=== PATIENT | female | born 1985 | race Caucasian/White ===

== ENCOUNTER 2017-08-01 15:10 | Inpatient (IN) | payer OTHER ==
[~2017-08-01] VITALS: Ht 172.7 cm; Wt 61.2 kg
[~2017-08-01 15:10] MED LIST: ATIVAN0.5 MG PO; FERROUS SULFAT325 M1 PO; GABAPENTIN400 MG PO; LORAZEPAM1 MG PO; MOTRIN 800MG T800 MG PO; NALTREXONE HYDR50 MG PO; PEPCID20 MG PO; PERCOCET 325 MG1 TA2 PO; PRENATAL VITAMINS PO; ZOFRAN ODT4 MG SL
[2017-08-01 16:30] VITALS: BP 128/87
[2017-08-01 16:34] LABS: ABSOLUTE BASOPHIL COUNT 0 /CUMM (0.0-0.2); ABSOLUTE EOSINOPHIL COUNT 0 /CUMM (0.0-0.7); ABSOLUTE GRANULOCYTE CT 1.8 /CUMM (1.4-6.5); ABSOLUTE LYMPH COUNT 1.3 /CUMM (1.2-3.4); ABSOLUTE MONOCYTE COUNT 0.1 /CUMM (0.10-0.60); BASOPHIL % 0.8 % (0.0-2.0); EOSINOPHIL % 0 % (0-5); GRANULOCYTE % 55.6 % (42.2-75.2); HEMATOCRIT 40.2 % (37-47); MEAN CORPUSCULAR HGB CONC 34.4 G/DL (33.0-37.0); MEAN CORPUSCULAR VOLUME 87.1 FL (81.0-99.0); MEAN PLATELET VOLUME 5.8 FL (7.4-10.4); PLATELET COUNT 164 /CUMM (130-400); RBC DISTRIBUTION WIDTH 13.6 % (11.5-14.5); RED BLOOD CELL CT 4.62 /CUMM (4.20-5.40); WHITE BLOOD CELL COUNT 3.3 /CUMM (4.8-10.8)
--- NOTE | 2017-08-01 16:39 | ED PSYCHIATRIC COMPLAINT ---
History of Present Illness General Chief Complaint: General Adult Stated Complaint: "I JUST DON'T FEEL WELL" PT VERY VAGUE Source: patient, family, old records Exam Limitations: no limitations Vital Signs & Intake/Output Vital Signs & Intake/Output Vital Signs Date Time Temp Pulse Resp B/P B/P Pulse O2 O2 Flow FiO2 Mean Ox Delivery Rate 08/02 1513 97.0 110 18 128/79 100 Room Air Room Air 08/02 1512 97.0 110 18 128/74 08/02 1344 96.9 94 18 127/79 100 Room Air Room Air 08/02 1343 96.9 94 18 127/79 08/02 1239 98.8 100 20 127/81 08/02 1216 98.8 100 19 127/81 99 Room Air 08/02 1126 98.7 92 18 132/78 08/02 1115 98.7 92 18 132/78 08/02 0858 98.2 100 18 128/72 08/02 0855 98.2 100 18 128/72 100 Room Air 08/02 0740 98.4 104 18 124/68 98 Room Air 08/02 0736 98.4 104 18 124/68 08/02 0600 98.5 102 20 128/70 08/02 0600 98.5 102 20 128/70 98 Room Air 08/02 0246 96.0 84 16 116/84 08/02 0245 95.6 84 16 116/84 100 Room Air Room Air 08/02 0044 98.4 98 18 118/76 98 Room Air 08/01 2251 98.2 97 18 119/74 98 Room Air 08/01 2230 98.2 97 14 119/74 08/01 2030 98.4 96 14 116/65 08/01 2030 98.4 96 14 116/65 99 Room Air 08/01 1830 98.1 100 16 115/62 08/01 1830 98.1 100 16 115/62 99 08/01 1630 97.9 97 15 128/87 08/01 1626 Room Air ED Intake and Output 08/02 0000 08/01 1200 Intake Total 1000 Output Total Balance 1000 Intake, IV 1000 Patient 140 lb Weight Weight Reported by Patient Measurement Method Allergies Coded Allergies: No Known Allergies (08/01/17) Reconcile Medications No Known Home Medications Triage Note: PT TO ED WITH MOTHER FOR ETOH DETOX. PT HAD SEIZURE THIS MORNING FROM ALCOHOL. PER MOTHER, WITNESSED AND DID NOT LAST VERY LONG. PT WOULD LIKE TO BE EVALUATED FOR ETOH DETOX AND SEIZURES. DENIES HALLUCINATION. 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 PER MOTHER, PT REPORTS +SI COMMENTS. CURRENTLY DENIES SI/HI IN TRIAGE. PT NORMALLY DRINKS APPROX A PINT OF VODKA A DAY. Triage Nurses Notes Reviewed? yes Onset: Just prior to arrival Duration: hour(s):, constant, continues in ED Timing: recent history Severity: moderate, severe Associated Symptoms: anxiety, impaired concentration, insomnia, suicidal ideation LMP (ages 10-50): unknown : No Patient currently breastfeeds: No HPI: 18 hours prior to admission patient had her last alcoholic beverage. 6 hours prior to admission patient had a generalized seizure unwitnessed. She drank afterwards to prevent seizure recurrence. She requests detox for alcohol. She complains of anorexia nausea abdominal pain confusion insomnia mom reports suicidal thoughts and right hand pain. She denies fever chills vomiting diarrhea chest pain cough shortness of breath headache dysuria rash bleeding homicidal ideation hallucination. (Rolando Reyes MD) Past History Travel History Traveled to [place] past 21 day No Medical History Any Pertinent Medical History? 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 No (Rolando Reyes MD) Review of Systems Review of Systems Constitutional: Reports: see HPI, malaise. EENTM: Reports: no symptoms. Respiratory: Reports: no symptoms. Cardiovascular: Reports: no symptoms. GI: Reports: see HPI, abdominal pain, nausea. Genitourinary: Reports: no symptoms. Musculoskeletal: Reports: no symptoms. Skin: Reports: no symptoms. Neurological/Psychological: Reports: see HPI, anxiety, confusion, tonic-clonic seizures. Hematologic/Endocrine: Reports: no symptoms. Immunologic/Allergic: Reports: no symptoms. All Other Systems: Reviewed and Negative (Rolando Reyes MD) Physical Exam Physical Exam General Appearance: well developed/nourished, alert, awake, anxious, moderate distress, thin Head: atraumatic, normal appearance Eyes: Bilateral: normal appearance, PERRL, EOMI. Ears, Nose, Throat: normal pharynx, normal ENT inspection, hearing grossly normal Neck: normal inspection, supple, full range of motion, no midline tenderness Respiratory: normal breath sounds, chest non-tender, no respiratory distress, quiet respiration, lungs clear Cardiovascular: regular rate/rhythm, normal peripheral pulses, norml femoral pulses equa Gastrointestinal: normal bowel sounds, soft, non-tender, no organomegaly Extremities: evidence of injury, tenderness, no ligament instability Neurological/Psychiatric: no motor/sensory deficits, awake, agitated, alert, normal mood/affect, kiln hand II-XII nml as tested, oriented x 3 Appearance/Memory/Insight: disheveled, impaired insight Behavoir/Eye Contact/Speech: cooperative, normal speech Thoughts/Hallucinations: no apparent hallucination Skin: intact, normal color, warm/dry SAD PERSONS SAD PERSONS Response Value Depression/Hopelessness? yes 2 Previous Attempts/Psych Care yes 1 Excessive Ethanol/Drug Use? yes 1 Rational Thinking Loss? yes 2 Single//? yes 1 Social Support? has support 0 Total 7 SAD PERSONS Done? yes CAGE (2/more=possible [place] CAGE (2/more=possible [place] Response Value Cut Down? yes 1 Annoyed? yes 1 Guilty? yes 1 Eye Log Roper? yes 1 Total 4 (Rolando Reyes MD) Progress Differential Diagnosis: drug intoxication, drug overdose, drug withdrawal, electrolyte abnormality, hypoglycemia Plan of Care: Orders Procedure Date/time Status MAGNESIUM 08/03 0600 Active CBC WITHOUT DIFFERENTIAL 08/03 0600 Active BASIC ELECTROLYTES PLUS BUN&CR 08/03 0600 Active Regular Diet 08/02 D Active Regular Diet 08/02 B Complete CIWA 08/02 1552 Active HEPATIC FUNCTION PANEL 08/02 1517 Active CBC WITHOUT DIFFERENTIAL 08/02 1517 Active BASIC ELECTROLYTES PLUS BUN&CR 08/02 1517 Active Pathway - chart 08/02 1509 Active Patient Data 08/02 1506 Active Admit to inpatient 08/02 1440 Active Vital Signs 08/02 1440 Active Code Status 08/02 1440 Complete Code Status 08/02 1440 Active House Staff 08/02 UNK Active VTE Mechanical Prophylaxis 08/02 UNK Active Intake & Output 08/02 UNK Active Durable Medical Equipment 08/01 1842 Active Continuous Observation Monitor 08/01 1636 Active Add-on Test (ER Only) 08/01 1631 Active CIWA 08/01 1631 Active URINE 08/01 1631 Complete CASE MANAGEMENT CONSULT 08/01 1631 Active MAGNESIUM 08/01 1620 Complete LIPASE 08/01 1620 Complete Current Medications Sig/Nestor Start time Last Medication Dose Stop Time Status Admin Lorazepam 2 MG Q4 08/02 1800 UNVr (Ativan) Lorazepam 0 Q1P PRN 08/02 1600 UNVr (Ativan) Sodium Chloride 1,000 ML Q8H 08/02 1600 UNVr (Normal Saline 0.9%) 08/03 0759 Folic Acid 1 MG DAILY 08/02 1550 UNVr (Folic Acid) Multivitamins 1 TAB DAILY 08/02 1550 UNVr (Theragran Vitamins) Thiamine HCl 100 MG DAILY 08/02 1550 UNVr (Vitamin B1) Cyanocobalamin/ 1 BAG ONCE ONE 08/01 1630 CAN Thiamine/Pyridoxine 08/02 0029 (Vitamin in I.V.) Sodium Chloride 1,000 ML (Normal Saline 0.9%) Ondansetron HCl 4 MG ONCE ONE 08/01 1630 CAN (Zofran) 08/01 1631 Laboratory Tests 08/02/17 1545: Sodium Pending, Potassium Pending, Chloride Pending, Carbon Dioxide Pending, Anion Gap Pending, BUN Pending, Creatinine Pending, BUN/Creatinine Ratio Pending , Total Bilirubin Pending, Direct Bilirubin Pending, AST Pending, ALT Pending, Alkaline Phosphatase Pending, Total Protein Pending, Albumin Pending, CBC w Diff Pending, WBC Pending, RBC Pending, Hgb Pending, Hct Pending, MCV Pending, MCH Pending, RDW Pending, Plt Count Pending, MPV Pending, PUBS MCHC Pending 08/01/17 1720: Urine Opiates Screen < 100.00, Methadone Screen < 40, Barbiturate Screen < 60, Ur Phencyclidine Scrn < 6.00, Amphetamines Screen < 100, U Benzodiazepines Scrn 290 H, Urine Cocaine Screen < 50, Urine Cannabis Screen < 5.00, Urine Test NEGATIVE 08/01/17 1620: Anion Gap 22 H, Estimated GFR > 60, BUN/Creatinine Ratio 24.0, Glucose 95, Calcium 8.4, Magnesium 1.9, Total Bilirubin 0.5, AST 145 H, ALT 134 H, Alkaline Phosphatase 97, Total Protein 7.9, Albumin 4.8, Globulin 3.1, Albumin/ Globulin Ratio 1.5, Lipase 506 H, CBC w Diff NO MAN DIFF REQ, RBC 4.62, MCV 87.1, MCH 30.0, RDW 13.6, MPV 5.8 L, Gran % 55.6, Lymphocytes % 39.9, Monocytes % 3.7, Eosinophils % 0, Basophils % 0.8, Absolute Granulocytes 1.8, Absolute Lymphocytes 1.3, Absolute Monocytes 0.1, Absolute Eosinophils 0, Absolute Basophils 0, PUBS MCHC 34.4, Serum Alcohol 487.0 Diagnostic Imaging: Viewed by Me: Radiology Read. Discussed w/RAD: Radiology Read. Radiology Impression: no acute abnormality, no fracture Hand-Off Endorsed To: Luis Linton MD Endorsed Time: 1899 Pending: consult (case management) (Rolando Reyes MD) Departure Departure Disposition: STILL A PATIENT Condition: Stable Clinical Impression Primary Impression: Alcohol withdrawal seizure Secondary Impressions: Alcohol intoxication, Contusion of hand, right, Pancreatitis, acute Referrals: Minerva Pederson APRN (PCP/Family) Departure Forms: Customer Survey General Discharge Information Prescriptions: Current Visit Scripts No Known Home Medications (Rolando Reyes MD) Departure Comments 08/02/17 1 PM The patient was signed out to me by Dr. Linton. She is pending approval by case management for medical admission for alcohol detox. She has a prior history of alcohol withdrawal seizures and has an elevated CIWA score greater than 8. Admission Note Spoke With: Huan Welsh MD Documentation of Exam: Documentation of any treatments & extenuating circumstances including Concerns Regarding Discharge (functional status, medication knowledge or non-compliance, living conditions, etc.) that warrant an admission rather than observation: [The patient needs admission for IV Ativan, neuro checks every 6 hours, concern for alcohol withdrawal seizures] (Luis Valverde DO) Procedures Splinting Location: R hand/wrist Manual Alignment Performed: No Pre-Made Type: velcro Splint: volar Splint Applied By: splint applied by other Pre-Proc Neuro Vasc Exam: normal Post-Proc Neuro Vasc Exam: normal (Rolando Reyes MD) Critical Care Note Critical Care Note Critical Care Time: 30-74 min (35) (Rolando Reyes MD)
--- NOTE | 2017-08-01 18:14 | RADIOLOGY REPORT ---
EXAMINATION: XR HAND, RIGHT CLINICAL INFORMATION: Right hand pain and swelling. Seizure. COMPARISON: None TECHNIQUE: PA, lateral, and oblique views of the right hand. FINDINGS: Soft tissue swelling is evident at the level of the metacarpals. No acute fractures are identified. Bone mineralization is normal. Joint spaces are well-preserved. IMPRESSION: No acute fracture or malalignment in the right hand. Soft tissue swelling over the metacarpal heads.
[2017-08-01 18:30] VITALS: BP 115/62
[2017-08-01 20:30] VITALS: BP 116/65
[2017-08-01 22:30] VITALS: BP 119/74
[2017-08-02] VITALS (12 sets, daily range): BP systolic 116–132; BP diastolic 62–92
--- NOTE | 2017-08-02 15:46 | History & Physical ---
Avtar HOU,Jovan 08/02/17 1546: General Information and HPI MD Statement: I have seen and personally examined BERNADINE VILLANUEVA and documented this H&P. The patient is a 32 year old F who presented with a patient stated chief complaint of [alcohol withdrawal with seizure]. Source of Information: patient, old records Exam Limitations: no limitations History of Present Illness: Patient is a 32-year-old female with a past medical history significant for alcohol withdrawal seizures first occurring in 2010, who presented to the ED complaining of frequent occurrence of alcohol withdrawal seizure and requesting alcohol detoxification. Patient reports drinking 1 pint of vodka for the past 7 days and states her recurrence and drinking is due to a toxic relationship, patient reports that she feels safe in her home. Her last drink was 2 hours before presenting to the ED. She reports that her previous seizures lasted less than a minute as to this one which was witnessed by her mother, she denies any bowel or bladder incontinence. She has never required ICU admission or Ativan drip. She denies any associated chest pain, shortness of breath, lightheadedness, dizziness or head strike. 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 Home Who Do You Live With? spouse Primary Language: Belgian Smoking Status: Current Some Day Smoker ETOH Use: alcoholic Illicit Drug Use: denies illicit drug use Living Will? unknown Power of Hydroelectric Machinery Mechanic/HCP? unknown Review of Systems Review of Systems Constitutional: Denies: chills, fever, weakness. EENTM: Denies: blurred vision, double vision, visual changes. Cardiovascular: Reports: syncope. Denies: chest pain, palpitations. Respiratory: Denies: cough, orthopnea, short of breath. GI: Reports: constipation (chronic), nausea. Denies: melena, bloody stool. Genitourinary: Denies: dysuria, frequency, hematuria. Neurological/Psychological: Reports: anxiety. Exam & Diagnostic Data Last 24 Hrs of Vital Signs/I&O Vital Signs Date Time Temp Pulse Resp B/P B/P Pulse O2 O2 Flow FiO2 Mean Ox Delivery Rate 08/02 1814 98.0 77 18 128/82 100 08/02 1712 97.9 92 18 118/62 08/02 1649 97.9 92 18 118/62 100 Room Air 08/02 1513 97.0 110 18 128/79 100 Room Air Room Air 08/02 1512 97.0 110 18 128/74 08/02 1344 96.9 94 18 127/79 100 Room Air Room Air 08/02 1343 96.9 94 18 127/79 08/02 1239 98.8 100 20 127/81 08/02 1216 98.8 100 19 127/81 99 Room Air 08/02 1126 98.7 92 18 132/78 08/02 1115 98.7 92 18 132/78 08/02 0858 98.2 100 18 128/72 08/02 0855 98.2 100 18 128/72 100 Room Air 08/02 0740 98.4 104 18 124/68 98 Room Air 08/02 0736 98.4 104 18 124/68 08/02 0600 98.5 102 20 128/70 08/02 0600 98.5 102 20 128/70 98 Room Air 08/02 0246 96.0 84 16 116/84 08/02 0245 95.6 84 16 116/84 100 Room Air Room Air 08/02 0044 98.4 98 18 118/76 98 Room Air 08/01 2251 98.2 97 18 119/74 98 Room Air 08/01 2230 98.2 97 14 119/74 Intake & Output 08/02 1600 08/02 0800 08/02 0000 Intake Total 1000 Output Total Balance 1000 Intake, IV 1000 Physical Exam General Appearance Alert, Oriented X3, Cooperative, No Acute Distress, tremulous Skin No Rashes Skin Temp/Moisture Exam: Warm/Dry Sepsis Skin Exam (color): Normal for Ethnicity HEENT Atraumatic, PERRLA, EOMI, Mucous Membr. moist/pink Neck Supple, No JVD Cardiovascular Regular Rate, Normal S1, Normal S2, No Murmurs Lungs Clear to Auscultation, Normal Air Movement Abdomen Normal Bowel Sounds, Soft, No Tenderness Neurological Normal Speech, Sensation Intact, Cranial Nerves 3-12 NL Extremities No Clubbing, No Cyanosis, No Edema Last 24 Hrs of Labs/Marty: Laboratory Tests 08/02/17 1842: Urine Osmolality 943, Ur Random Creatinine 126.2, Ur Random Sodium 103 H, Ur Random Potassium 34.5, Fraction Sodium Excret 0.4 08/02/17 1545: Anion Gap 18 H, Estimated GFR > 60, BUN/Creatinine Ratio 16.7, Serum Osmolality 287, Magnesium 1.8, Total Bilirubin 1.0, Direct Bilirubin 0.4, AST 110 H, ALT 107 H, Alkaline Phosphatase 72, Total Protein 7.3, Albumin 4.6, CBC w Diff NO MAN DIFF REQ, RBC 4.13 L, MCV 88.9, MCH 29.8, RDW 13.7, MPV 7.4, Gran % 61.6, Lymphocytes % 29.0, Monocytes % 8.2, Eosinophils % 0, Basophils % 1.2, Absolute Granulocytes 3.1, Absolute Lymphocytes 1.4, Absolute Monocytes 0.4, Absolute Eosinophils 0, Absolute Basophils 0.1, PUBS MCHC 33.5 Diagnostic Data Other Results R hand XR No acute fracture or malalignment in the right hand. Soft tissue swelling over the metacarpal heads. Assessment/Plan Assessment: Patient is a 32-year-old female with a past medical history significant for alcohol withdrawal seizures first occurring in 2010, who presented to the ED complaining of frequent occurrence of alcohol withdrawal seizure and requesting alcohol detoxification. VS on admission: T 98.2, P 97, RR 14, BP 119/74, pulse ox 97% on room air labs on admission: Urine benzo screen +290, serum alcohol 487, WCC 3.3>5.0, H/H 13.9/40.2, platelets 164, sodium 146>134, potassium 4.2, chloride 104, CO2 21, BUN/Cr 12, creatinine 0.5, glucose 95, AST 145>110, ALT 134>107, lipase 506 Patient was admitted to the general medicine floor for treatment of the following problems #Alcohol withdrawal seizure Patient has history of alcohol withdrawal seizures, CIWA score since admission range from 014 -Ativan scheduled 2 mg every 4 hours by mouth -CIWA protocol - IV rehydration with lactated Ringer's -Oral supplementation with multivitamin B1 folic acid #Transaminitis -Patient will be nothing by mouth for right upper quadrant ultrasound in a.m. #DVT prophylaxis -ALPS, platelet count currently <100 #CODE STATUS Full code As Ranked By This Provider Problem List: 1. Alcohol withdrawal seizure Core Measures/Misc (04/22) Acute Coronary Syndrome ACS Diagnosis: No Congestive Heart Failure Congestive Heart Failure Diagnosis No Cerebrovascular Accident CVA/TIA Diagnosis: No VTE (View Protocol) VTE Risk Factors No risk factors No Mechanical VTE Prophylaxis d/t N/A MechProphylax Ordered No VTE Pharm Prophylaxis d/t Platelets below ref range Sepsis (View protocol) Sepsis Present: No Ul Christopher HOU,Miguel A 08/02/17 1605: Resident Review Statement Resident Statement: examined this patient, discussed with technology risk intern, discussed with family, reviewed EMR data (avail) Other Findings: 32-year-old female with past medical history significant for alcohol intoxication, history of stillborn in 2014, breast augmentation, tonsillectomy, and history of right arm fracture came to emergency department for alcohol detox and ? generalized witnessed seizure. Last drink was 2 hours before admission. Patient drinks a pint of water every day. Vitals in emergency department patient afebrile, tachycardia noticed 94-118, no tachypnea, systolic blood pressure 120s and diastolic in 70s, oxygen saturation of 100% on room air. On examination, patient was alert and oriented time person and place not in acute distress. Comfortably lying in the bed. S1 and S2 audible without any murmurs. Overall clear lungs, nontender abdominal examination, audible bowel sounds, no significant gross neurological deficits, bilateral shaking of the hands noticed. Labs significant for WBC 3.3, hemoglobin 13.9 and hematocrit 40.2, platelet count of 164, sodium 146, potassium 4.2, chloride 104, carbon dioxide 21, anion gap 22, normal renal function, transaminitis AST 145 and ALT 134, urine tox positive for benzodiazepines and serum alcohol 487, urine lites and osmolality along with serum osmolarity added. Negative urine Patient is currently being admitted for the management of following problems Alcohol withdrawal Alcohol withdrawal seizures Dehydration Hyponatremia Patient has history of a core dependence that intake increased after recent toxic relationship. Drinks 1 pint of vodka daily for the last 1 week. Last drink in the moring of admission. Symptoms of anxiety and tremors. Serum Alcohol level 487. History of detox and withdrwal seizures - Admit to Gen Med - Vitals Q Shift - Give PRN IV Ativan. - CIWA Protocol - NS at 100cc per hour, will readjust fluids and urine studies - Replete Lytes - Give Multivitamins, B12 and Folate - Social work consult Alcohol withdrawal seizures Seizure precautions Aspiration precautions IV Ativan when necessary ordered for breakthrough seizures CPK Neurology consult in case seizures persist History of tachycardia According to the patient she was given propranolol recently because of tachycardia. She never had it filled up. With obtain an EKG to rule out any underlying arrhythmias. Patient is full code Patient is on regular diet Patient is on Alps for DVT prophylaxis because of thrombocytopenia Patient is on pain management Anitha HOU,Huan 08/02/17 1626: Attending MD Review Statement Attending Statement Attending MD Statement: examined this patient, discuss w/resident/PA/DEPARTMENT MGR, agreed w/resident/PA/DEPARTMENT MGR, reviewed EMR data (avail), discussed with nursing, amended to note Attending Assessment/Plan: Patient is a 72-year-old female with history of alcohol abuse and alcohol- related seizures. She reportedly had a seizure at home yesterday and continued drinking and attempts to suppress a seizure. She was eventually brought to the emergency room by her mother for evaluation. She will monitoring the emergency room all through yesterday where she continued to have elevated CIWA scores requiring benzodiazepine therapy. This morning decision was made to admit the patient to the inpatient medical service for further management. She is currently alert and oriented 3, resting comfortably not in any acute distress. She is not tremulous or agitated on exam. Lab shows chronic transaminitis likely alcohol-related. She had negative viral hepatitis panel in the past. She has had no recent right upper quadrant sonogram. Recommendations: -Admit to the inpatient general medical service. -Hydrate with lactated Ringer's at 125cc per hour. -Repeat serum chemistry magnesium level in a.m. No need to repeat CBC in a.m. unless is a change in her clinical status. -Place on CIWA protocol. -Obtain right upper quadrant sonogram. -DVT prophylaxis. -child protective services social worker consultation for assistance with outpatient alcohol rehabilitation.
[2017-08-02 15:56] LABS: ABSOLUTE BASOPHIL COUNT 0.1 /CUMM (0.0-0.2); ABSOLUTE EOSINOPHIL COUNT 0 /CUMM (0.0-0.7); ABSOLUTE GRANULOCYTE CT 3.1 /CUMM (1.4-6.5); ABSOLUTE LYMPH COUNT 1.4 /CUMM (1.2-3.4); ABSOLUTE MONOCYTE COUNT 0.4 /CUMM (0.10-0.60); BASOPHIL % 1.2 % (0.0-2.0); EOSINOPHIL % 0 % (0-5); GRANULOCYTE % 61.6 % (42.2-75.2); HEMATOCRIT 36.7 % (37-47); MEAN CORPUSCULAR HGB 29.8 PG (27.0-31.0); MEAN CORPUSCULAR HGB CONC 33.5 G/DL (33.0-37.0); MEAN CORPUSCULAR VOLUME 88.9 FL (81.0-99.0); MEAN PLATELET VOLUME 7.4 FL (7.4-10.4); PLATELET COUNT 92 /CUMM (130-400); RBC DISTRIBUTION WIDTH 13.7 % (11.5-14.5); RED BLOOD CELL CT 4.13 /CUMM (4.20-5.40)
--- NOTE | 2017-08-02 16:27 | Admission Certification ---
Admission Certification Certification Statement - As attending physician, I certify that at the time of - admission, based on clinical presentation, severity of - symptoms, need for further diagnostic testing and - therapeutic interventions, and risk of adverse outcomes - without in-hospital treatment, in my clinical assessment, - this patient requires an acute hospital stay for a minimum - of two nights or longer. I have also considered psychsocial - factors such as support system, advanced age, financial - issues, cognitive issues, and failed out-patient treatments, - past re-admission history, safety of patient, and lack of - compliance as applicable. Specific rationale supporting this admission is: Inpatient admission is required for management of alcohol withdrawal syndrome. She will require IV hydration and benzodiazepine therapy.
[2017-08-03] VITALS (11 sets, daily range): BP systolic 118–124; BP diastolic 76–88
--- NOTE | 2017-08-03 07:14 | PN- Housestaff ---
Avtar HOU,Jovan 08/03/17 0713: Subjective Follow-up For: Alcohol withdrawal Transaminitis Subjective: Was seen and examined at bedside. She was resting comfortably. She had no acute events overnight. She states that she remains nauseous, with no appetite and has a headache. She continues to complain of anxiety but states this is improving. She also remains constipated. She offers no other complaints currently denies any vomiting, chest pain, shortness breath, fever, chills. Review of Systems Constitutional: Denies: chills, fever. Cardiovascular: Denies: chest pain, palpitations. Respiratory: Denies: cough, short of breath. Gastrointestinal: Reports: constipation, nausea. Denies: melena, bloody stool, vomiting. Genitourinary: Reports: no symptoms. Musculoskeletal: Reports: no symptoms. Objective Last 24 Hrs of Vital Signs/I&O Vital Signs Date Time Temp Pulse Resp B/P B/P Pulse O2 O2 Flow FiO2 Mean Ox Delivery Rate 08/03 629 97.8 59 20 118/76 98 08/03 0600 97.8 59 20 118/76 08/02 2259 99.2 85 18 128/92 98 Room Air 08/02 2200 99.2 85 18 128/92 08/02 1814 98.0 77 18 128/82 100 08/02 1712 97.9 92 18 118/62 08/02 1649 97.9 92 18 118/62 100 Room Air 08/02 1513 97.0 110 18 128/79 100 Room Air Room Air 08/02 1512 97.0 110 18 128/74 08/02 1344 96.9 94 18 127/79 100 Room Air Room Air 08/02 1343 96.9 94 18 127/79 08/02 1239 98.8 100 20 127/81 08/02 1216 98.8 100 19 127/81 99 Room Air 08/02 1126 98.7 92 18 132/78 08/02 1115 98.7 92 18 132/78 08/02 0858 98.2 100 18 128/72 08/02 0855 98.2 100 18 128/72 100 Room Air 08/02 0740 98.4 104 18 124/68 98 Room Air 08/02 0736 98.4 104 18 124/68 Intake & Output 08/03 0800 08/03 0000 08/02 1600 Intake Total 1000 630 Output Total Balance 1000 630 Intake, IV 1000 250 Intake, Oral 0 380 Patient 135 lb Weight Weight Reported by Patient Measurement Method Physical Exam General Appearance: Alert, Oriented X3, Cooperative, No Acute Distress, tremulous Skin Temp/Moisture Exam: Warm/Dry Cardiovascular: Regular Rate, Normal S1, Normal S2, No Murmurs Lungs: Clear to Auscultation, Normal Air Movement Abdomen: Normal Bowel Sounds, Soft, mild TTP of the right upper quadrant Neurological: Normal Speech, Sensation Intact Extremities: No Clubbing, No Cyanosis, No Edema Current Medications: Current Medications Sig/Nestor Start time Last Medication Dose Route Stop Time Status Admin Docusate Sodium 100 MG BID 08/03 1000 AC PO Folic Acid 1 MG DAILY 08/02 1550 AC 08/02 PO 2133 Lactated Ringer's 1,000 ML Q8H 08/02 1730 AC 08/02 IV 08/03 0929 2030 Lorazepam 0 .STK-MED ONE 08/02 1803 DC .ROUTE Lorazepam 2 MG Q4 08/02 1800 AC 08/03 PO 0522 Lorazepam 0 .STK-MED ONE 08/02 1720 DC PO Lorazepam 0 Q1P PRN 08/02 1600 AC 08/02 IV 1722 Lorazepam 0 .STK-MED ONE 08/02 1544 DC PO Lorazepam 0 .STK-MED ONE 08/02 1340 DC .ROUTE Lorazepam 2 MG ONE ONE 08/02 1315 DC 08/02 IV 08/02 1316 1345 Lorazepam 0 .STK-MED ONE 08/02 1238 DC PO Lorazepam 0 .STK-MED ONE 08/02 1140 DC PO Lorazepam 0 .STK-MED ONE 08/02 1114 DC PO Lorazepam 0.5 MG ONE ONE 08/02 1100 DC 08/02 PO 08/02 1101 1113 Lorazepam 2 MG Q2P PRN 08/01 1845 DC 08/02 PO 1545 Lorazepam 1 MG Q2P PRN 08/01 1845 DC 08/02 PO 1138 Multivitamins 1 TAB DAILY 08/02 1550 AC 08/02 PO 2133 Ondansetron HCl 4 MG Q6P PRN 08/02 2045 AC 08/03 IV 0526 Ondansetron HCl 4 MG ONCE ONE 08/02 2015 CAN IV 08/02 2016 Ondansetron HCl 0 .STK-MED ONE 08/02 1114 DC PO Ondansetron HCl 4 MG ONCE ONE 08/02 1100 DC 08/02 PO 08/02 1101 1113 Promethazine HCl 12.5 MG ONCE ONE 08/03 0230 DC 08/03 IV 08/03 0231 0234 Promethazine HCl 12.5 MG ONCE ONE 08/02 2015 DC 08/02 IV 08/02 Promethazine HCl 12.5 MG ONCE ONE 08/02 1315 DC 08/02 IV 08/02 1316 1332 Promethazine HCl 0 .STK-MED ONE 08/02 1256 DC .ROUTE Sodium Chloride 1,000 ML Q8H 08/02 1600 DC IV 08/03 0759 Sodium Chloride 1,000 ML BOLUS ONE 08/02 1315 DC 08/02 IV 08/02 1414 1332 Thiamine HCl 100 MG DAILY 08/02 1550 AC 08/02 PO 2133 Last 24 Hrs of Lab/Marty Results Last 24 Hrs of Labs/Mics: Laboratory Tests 08/03/17 0802: Anion Gap 8, Estimated GFR > 60, BUN/Creatinine Ratio 22.0, Magnesium 1.8, TSH 1.180, Free T4 1.06 08/02/17 1842: Urine Osmolality 943, Ur Random Creatinine 126.2, Ur Random Sodium 103 H, Ur Random Potassium 34.5, Fraction Sodium Excret 0.4 Orders Radiology Findings: RUQ US 1. Liver is diffusely hyperechoic -- suggestive of steatosis. 2. Gallbladder is normal. Assessment/Plan Assessment: Patient is a 32-year-old female with a past medical history significant for alcohol withdrawal seizures first occurring in 2010, who presented to the ED complaining of frequent occurrence of alcohol withdrawal seizure and requesting alcohol detoxification. #Alcohol withdrawal Given patient's history of alcohol withdrawal seizures is being treated with scheduled Ativan with CIWA protocol breakthrough. Overnight patient's CIWA scores range from 0-6, and required only 1 mg IV Ativan for breakthrough. -Continue with CIWA protocol, will taper scheduled Ativan tomorrow if patient continues to do well -Initially ordered Zofran for nausea, patient stated provided little relief, switched to Phenergan which had provided relief in past. -Continue IV rehydration with lactated Ringer's until patient's by mouth intake improved #Alcoholic steatosis Patient has mild transaminitis and right upper quadrant ultrasound shows hypoechoic liver likely representing steatosis secondary to alcohol abuse. Thyroid function tests were done due to patient reported history of type thyroidism, these were within normal limits #DVT prophylaxis -Alps, platelet count <100 CODE STATUS Full code Problem List: 1. Alcohol withdrawal Pain Ratin Pain Location: none Pain Goal: Remain pain free Pain Plan: pain pathway Tomorrow's Labs & Rationales: cbc, bep Huan Welsh MD 08/03/17 1316: Attending MD Review Statement Attending Statement Attending MD Statement: examined this patient, discuss w/resident/PA/PICKLING TANK OPERATOR, agreed w/resident/PA/PICKLING TANK OPERATOR, reviewed EMR data (avail), discussed with nursing, discussed with case mgmt, amended to note Attending Assessment/Plan: Patient seen and examined. Very well overnight. CIWA score appears to be improving. On examination she is not anxious or agitated however she is mildly tremulous this morning. Continue current dose of Ativan and monitor patient overnight. If he continues to improve and on requires significant amount of intravenous Ativan Will taper down her Ativan by 0.5 mg each dose. Her liver sonogram shows diffuse hyperechoicity suggestive of steatosis likely related to alcohol use.
--- NOTE | 2017-08-03 10:14 | ULTRASOUND REPORT ---
EXAMINATION: US ABDOMEN LIMITED CLINICAL INFORMATION: Evaluate for gallbladder pathology. Transaminitis.. COMPARISON: None TECHNIQUE: Real-time imaging of the right upper quadrant abdominal viscera. FINDINGS: PANCREAS: Normal. LIVER: Liver is diffusely hyperechoic, finding typically caused by steatosis. No evidence of focal hepatic lesion or intrahepatic bile duct dilatation. GALLBLADDER: Normal. The gallbladder is physiologically distended without evidence of stones, sludge, polyps, wall thickening or pericholecystic fluid. COMMON DUCT: The CBD is not visualized. The common hepatic duct is normal, measuring 0.2 cm diameter. RIGHT KIDNEY: Normal. No hydronephrosis. No renal calculi or focal parenchymal lesions. The kidney measures 12.1 cm in maximum dimension. FREE FLUID: None. IMPRESSION: 1. Liver is diffusely hyperechoic -- suggestive of steatosis. 2. Gallbladder is normal.
[2017-08-04 06:35] VITALS: BP 108/88
[2017-08-04 09:16] LABS: ABSOLUTE BASOPHIL COUNT 0 /CUMM (0.0-0.2); ABSOLUTE EOSINOPHIL COUNT 0.1 /CUMM (0.0-0.7); ABSOLUTE GRANULOCYTE CT 2.5 /CUMM (1.4-6.5); ABSOLUTE MONOCYTE COUNT 0.2 /CUMM (0.10-0.60); BASOPHIL % 0.2 % (0.0-2.0); EOSINOPHIL % 1.4 % (0-5); GRANULOCYTE % 65.7 % (42.2-75.2); HEMATOCRIT 33.8 % (37-47); MEAN CORPUSCULAR HGB CONC 33.8 G/DL (33.0-37.0); MEAN CORPUSCULAR VOLUME 88.7 FL (81.0-99.0); PLATELET COUNT 82 /CUMM (130-400); RBC DISTRIBUTION WIDTH 13.4 % (11.5-14.5); RED BLOOD CELL CT 3.81 /CUMM (4.20-5.40); WHITE BLOOD CELL COUNT 3.7 /CUMM (4.8-10.8)
--- NOTE | 2017-08-04 11:40 | PN- Att Addend ---
Attending Addendum Attending Brief Note Patient seen and examined. Resting comfortably and not in any acute distress. No issues overnight reported by nursing staff. She only required 1 dose of IV Ativan yesterday. She is calm. She denies any complaints. Vital Signs Date Time Temp Pulse Resp B/P B/P Pulse O2 O2 Flow FiO2 Mean Ox Delivery Rate 08/04 0635 98.1 81 18 108/88 99 08/03 2231 98.1 81 18 124/88 99 Room Air 08/03 1800 97.2 62 18 120/82 08/03 1600 97.2 62 18 120/82 08/03 1429 97.2 62 18 120/82 97 Room Air 08/03 1400 97.6 90 18 118/80 08/03 1231 90 18 118/80 98 Room Air 08/03 1200 97.6 90 18 118/80 Gen. appearance: Well-developed, not in acute distress Heart: S1-S2 regular Lungs: Clear to auscultation bilaterally Abdomen: Soft and nontender Extremities no pitting edema. Problems: 1. Alcohol withdrawal 2. Mild alcoholic pancreatitis. 3. Steatohepatitis 4. Thrombocytopenia Plan: -Taper Ativan to 1.5 mg orally every 6 hours. -Encourage mobilization. -No need to repeat labs tomorrow unless there is a change in her clinical condition. -Thrombocytopenia precautions.
--- NOTE | 2017-08-04 11:58 | PN- Housestaff ---
Subjective Follow-up For: Alcohol withdrawal Transaminitis Subjective: No overnight events. patient remained afibrile over night. seen and examined this morning on bed side. She was complaining of headache 4/10 and little anxious. She denied chest pain, short of breath, chills, fever, abdominal pain and dysuria. Was feeling a little bit nauseous but she didn't throw up. Review of Systems Constitutional: Reports: no symptoms. EENTM: Reports: see HPI. Cardiovascular: Reports: no symptoms. Respiratory: Reports: no symptoms. Gastrointestinal: Reports: nausea. Genitourinary: Reports: no symptoms. Musculoskeletal: Reports: see HPI. Neurological/Psychological: Reports: no symptoms. Objective Last 24 Hrs of Vital Signs/I&O Vital Signs Date Time Temp Pulse Resp B/P B/P Pulse O2 O2 Flow FiO2 Mean Ox Delivery Rate 08/04 0635 98.1 81 18 108/88 99 08/03 2231 98.1 81 18 124/88 99 Room Air 08/03 1800 97.2 62 18 120/82 08/03 1600 97.2 62 18 120/82 08/03 1429 97.2 62 18 120/82 97 Room Air 08/03 1400 97.6 90 18 118/80 08/03 1231 90 18 118/80 98 Room Air Intake & Output 08/04 1600 08/04 0800 08/04 0000 Intake Total 1320 480 Output Total 300 Balance 1020 480 Intake, IV 600 Intake, Oral 720 480 Number 1 Bowel Movements Output, Urine 300 Physical Exam General Appearance: Alert, Oriented X3, Cooperative, No Acute Distress Skin Temp/Moisture Exam: Warm/Dry HEENT: Atraumatic, PERRLA, EOMI Neck: Supple Cardiovascular: Normal S1, Normal S2 Lungs: Clear to Auscultation Abdomen: Soft, No Tenderness Neurological: Normal Speech, Strength at 5/5 X4 Ext, Normal Tone, Sensation Intact Extremities: No Edema Assessment/Plan Assessment: Patient is a 32-year-old female with a past medical history significant for alcohol withdrawal seizures first occurring in 2010, who presented to the ED complaining of frequent occurrence of alcohol withdrawal seizure and requesting alcohol detoxification. #Alcohol withdrawal Given patient's history of alcohol withdrawal seizures is being treated with scheduled Ativan with CIWA protocol breakthrough. Overnight patient's CIWA scores range from 0-6, and required only 1 mg IV Ativan for breakthrough. -Continue with CIWA protocol, will taper scheduled Ativan tomorrow if patient continues to do well -Initially ordered Zofran for nausea, patient stated provided little relief, switched to Phenergan which had provided relief in past. -Continue IV rehydration with lactated Ringer's until patient's by mouth intake improved #Alcoholic steatosis Patient has mild transaminitis and right upper quadrant ultrasound shows hypoechoic liver likely representing steatosis secondary to alcohol abuse. Thyroid function tests were done due to patient reported history of type thyroidism, these were within normal limits #DVT prophylaxis -Alps, platelet count <100 CODE STATUS Full code Problem List: 1. Alcohol abuse 2. Transaminitis Pain Ratin Pain Location: headache Pain Goal: Remain pain free Pain Plan: tylenol for mild pain Tomorrow's Labs & Rationales: none
[2017-08-04 15:08] VITALS: BP 124/80
[2017-08-04 20:00] VITALS: BP 130/94
[2017-08-05] VITALS (10 sets, daily range): BP systolic 109–130; BP diastolic 66–88
--- NOTE | 2017-08-05 08:30 | PN- Housestaff ---
LevonWindermere 08/05/17 0830: Subjective Follow-up For: Alcohol withdrawal Transaminitis Pancreatitis Subjective: No overnight events. Patient remained afebrile overnight. Patient seen and examined this morning. She denied any chest pain, short of breath, vomiting, abdominal pain, lightheadedness, headache, palpitation and dysuria. Patient reported nausea. Patient is tolerating food. Review of Systems Constitutional: Reports: no symptoms. EENTM: Reports: no symptoms. Cardiovascular: Reports: no symptoms. Respiratory: Reports: no symptoms. Gastrointestinal: Reports: nausea. Genitourinary: Reports: no symptoms. Musculoskeletal: Reports: no symptoms. Neurological/Psychological: Reports: no symptoms. Objective Last 24 Hrs of Vital Signs/I&O Vital Signs Date Time Temp Pulse Resp B/P B/P Pulse O2 O2 Flow FiO2 Mean Ox Delivery Rate 08/05 0600 97.9 71 20 109/66 08/05 0455 97.9 71 20 109/66 98 Room Air 08/05 0453 98.0 80 18 130/88 94 Room Air 08/05 0400 97.5 79 20 122/84 08/05 0200 97.5 79 20 122/84 08/05 0019 97.5 79 20 122/84 98 Room Air 08/05 0000 97.5 79 20 122/84 08/04 2000 98.0 80 20 130/94 98 Room Air 08/04 1508 97.9 78 18 124/80 98 Intake & Output 08/05 1600 08/05 0800 08/05 0000 Intake Total 610 Output Total 500 350 Balance 110 -350 Intake, IV 130 Intake, Oral 480 Number 0 Bowel Movements Output, Urine 500 350 Physical Exam General Appearance: Alert, Oriented X3, Cooperative, No Acute Distress Skin Temp/Moisture Exam: Warm/Dry HEENT: Atraumatic, PERRLA, EOMI Neck: Supple Cardiovascular: Normal S1, Normal S2 Lungs: Clear to Auscultation Abdomen: Soft, No Tenderness Neurological: Normal Speech, Strength at 5/5 X4 Ext, Normal Tone, Sensation Intact Extremities: No Edema Assessment/Plan Assessment: Patient is a 32-year-old female with a past medical history significant for alcohol withdrawal seizures first occurring in 2010, who presented to the ED complaining of frequent occurrence of alcohol withdrawal seizure and requesting alcohol detoxification. Alcohol withdrawal: Given patient's history of alcohol withdrawal seizures is being treated with scheduled Ativan with CIWA protocol breakthrough. Overnight patient CIWA score is 2. -We will taper the Ativan. But still basically continue CIWA protocol. -Initially ordered Zofran for nausea, patient stated provided little relief, switched to Phenergan which had provided relief in past. Pancreatitis: -On admission patient's lipase was 506 with complain of abdominal pain. -We will give patient IV hydration with Ringer's lactate at the rate of 150 mL per hour considering her complain of nausea. -On the patient is tolerating food but she is not drinking or eating much. Alcoholic steatosis: Patient has mild transaminitis and right upper quadrant ultrasound shows hypoechoic liver likely representing steatosis secondary to alcohol abuse. Thyroid function tests were done due to patient reported history of type thyroidism, these were within normal limits DVT prophylaxis: -Alps, platelet count <100 CODE STATUS: -Full code Problem List: 1. Transaminitis 2. Alcohol withdrawal Pain Ratin Pain Location: none Pain Goal: Remain pain free Pain Plan: tylenol for mild pain Tomorrow's Labs & Rationales: LFTs/cbc/bep Huan Welsh MD 08/05/17 0914: Attending MD Review Statement Attending Statement Attending MD Statement: examined this patient, discuss w/resident/PA/PROCESS OWNER, agreed w/resident/PA/PROCESS OWNER, reviewed EMR data (avail), discussed with nursing, amended to note Attending Assessment/Plan: Patient seen and examined. Resting comfortably not in any acute distress. She was mildly agitated yesterday required IV Ativan on 2 occasions. She is otherwise doing okay. He does report mild nausea relieved with use of Phenergan. She complains of abdominal discomfort. On examination she has mild epigastric pain with no rebound or guarding. Bowel sounds are normoactive. There is no abdominal distention. Recommendations: -From alcohol withdrawal standpoint she is clinically stable. Recommend decreasing her Ativan to 1 mg every 6 hours. -Recommend he restart the patient on IV hydration with lactated Ringer's at 1 50 cc an hour for her mild pancreatitis. -Encourage mobilization -No need to repeat laboratory data tomorrow unless there is a change in her clinical status.
[2017-08-06] VITALS (14 sets, daily range): BP systolic 106–124; BP diastolic 65–78
--- NOTE | 2017-08-06 07:59 | PN- Housestaff ---
Avtar HOU,Jovan 08/06/17 0759: Objective Last 24 Hrs of Vital Signs/I&O Vital Signs Date Time Temp Pulse Resp B/P B/P Pulse O2 O2 Flow FiO2 Mean Ox Delivery Rate 08/06 0400 98.1 68 18 106/78 08/06 0257 98.1 68 18 106/78 97 Room Air 08/06 0200 98.1 68 18 106/78 08/06 0000 98.0 85 18 111/76 08/05 2250 98.0 85 18 111/76 99 Room Air 08/05 1600 98.0 66 18 118/68 08/05 1535 98.0 66 18 118/68 99 Room Air Intake & Output 08/06 0800 08/06 0000 08/05 1600 Intake Total 1800 1250 Output Total 750 Balance 1050 1250 Intake, IV 1200 750 Intake, Oral 600 500 Number 0 Bowel Movements Output, Urine 750 Current Medications: Current Medications Sig/Nestor Start time Last Medication Dose Route Stop Time Status Admin Acetaminophen 500 MG .STK-MED ONE 08/05 2343 DC PO 08/05 2344 Acetaminophen 500 MG .STK-MED ONE 08/05 1606 DC PO 08/05 1607 Acetaminophen 500 MG Q6P PRN 08/03 1500 AC 08/05 PO 2343 Diphenhydramine HCl 25 MG AT BEDTIME PRN 08/05 0145 AC 08/05 PO 2334 Docusate Sodium 100 MG BID 08/03 1000 AC 08/05 PO 2111 Folic Acid 1 MG DAILY 08/02 1550 AC 08/05 PO 1052 Lactated Ringer's 1,000 ML Q6H 08/05 1100 AC 08/06 IV 0413 Lorazepam 1 MG Q6 08/05 1200 AC 08/06 PO 0516 Lorazepam 1.5 MG Q6 08/04 1800 DC 08/05 PO 0621 Lorazepam 0 Q1P PRN 08/02 1600 AC 08/05 IV 2119 Multivitamins 1 TAB DAILY 08/02 1550 AC 08/05 PO 1048 Polyethylene Glycol 17 GM DAILY 08/03 1000 AC 08/05 PO 1112 Potassium Chloride 40 MEQ ONCE ONE 08/05 1100 DC 08/05 PO 08/05 1101 1112 Promethazine HCl 25 MG Q4P PRN 08/03 1700 AC 08/06 IV 08/10 1459 0520 Senna/Docusate Sodium 1 TAB BID PRN 08/03 0845 AC 08/03 PO 2116 Thiamine HCl 100 MG DAILY 08/02 1550 AC 08/05 PO 1052 Assessment/Plan Assessment: Patient is a 32-year-old female with a past medical history significant for alcohol withdrawal seizures first occurring in 2010, who presented to the ED complaining of frequent occurrence of alcohol withdrawal seizure and requesting alcohol detoxification. Alcohol withdrawal: Given patient's history of alcohol withdrawal seizures is being treated with scheduled Ativan with CIWA protocol breakthrough. Overnight patient CIWA score is 2. -We will taper the Ativan. But still basically continue CIWA protocol. -Initially ordered Zofran for nausea, patient stated provided little relief, switched to Phenergan which had provided relief in past. Pancreatitis: -On admission patient's lipase was 506 with complain of abdominal pain. -We will give patient IV hydration with Ringer's lactate at the rate of 150 mL per hour considering her complain of nausea. -On the patient is tolerating food but she is not drinking or eating much. Alcoholic steatosis: Patient has mild transaminitis and right upper quadrant ultrasound shows hypoechoic liver likely representing steatosis secondary to alcohol abuse. Thyroid function tests were done due to patient reported history of type thyroidism, these were within normal limits DVT prophylaxis: -Alps, platelet count <100 CODE STATUS: -Full code Huan Welsh MD 08/06/17 0854: Attending MD Review Statement Attending Statement Attending MD Statement: examined this patient, discuss w/resident/PA/TAXI SERVICER, agreed w/resident/PA/TAXI SERVICER, reviewed EMR data (avail), discussed with nursing, amended to note Patient seen and examined. Resting comfortably and not in acute distress. Reports to be much better today. Denies nausea vomiting. Denies abdominal pain. Tolerating diet. She required only 1 dose of IV Ativan yesterday. Her CIWA score continues to improve. On examination she is not agitated or tremulous. Abdomen is soft and nontender with normal bowel sounds. Problems: 1. Alcohol withdrawal syndrome. 2. Alcoholic pancreatitis; mild 3. Alcohol related seizures; none since admission. Plan: -Decrease Ativan to 0.5 mg orally every 8 hours today. Tomorrow begin patient on Ativan 0.5 mg twice daily. -If she continues to do well clinically today she may be discharged home tomorrow. -She should follow-up with social work service tomorrow prior to discharge for assistance with outpatient rehabilitation. -Mobilization as tolerated.
--- NOTE | 2017-08-06 10:07 | PN- Att Addend ---
Attending Addendum Attending Brief Note Patient seen and examined. Resting comfortably and not in acute distress. Reports to be much better today. Denies nausea vomiting. Denies abdominal pain. Tolerating diet. She required only 1 dose of IV Ativan yesterday. Her CIWA score continues to improve. On examination she is not agitated or tremulous. Abdomen is soft and nontender with normal bowel sounds. Vital Signs Date Time Temp Pulse Resp B/P B/P Pulse O2 O2 Flow FiO2 Mean Ox Delivery Rate 08/06 0737 97.5 79 18 113/65 100 Room Air 08/06 0600 97.5 79 18 113/65 08/06 0400 98.1 68 18 106/78 08/06 0257 98.1 68 18 106/78 97 Room Air 08/06 0200 98.1 68 18 106/78 08/06 0000 98.0 85 18 111/76 08/05 2250 98.0 85 18 111/76 99 Room Air 08/05 1600 98.0 66 18 118/68 08/05 1535 98.0 66 18 118/ 99 Room Air Intake & Output 08/06 1600 08/06 0800 08/06 0000 Intake Total 1320 1800 Output Total 500 750 Balance 820 1050 Intake, IV 1200 1200 Intake, Oral 120 600 Output, Urine 500 750 General appearance: Resting comfortably not in any distress. Heart: S1-S2 regular Lungs: Clear bilaterally Abdomen: Soft, nontender with normal bowel sounds Extremities: No pedal edema Skin: Intact with no rashes. Problems: 1. Alcohol withdrawal syndrome. 2. Alcoholic pancreatitis; mild 3. Alcohol related seizures; none since admission. Plan: -Decrease Ativan to 0.5 mg orally every 8 hours today. Tomorrow begin patient on Ativan 0.5 mg twice daily. -If she continues to do well clinically today she may be discharged home tomorrow. -She should follow-up with social work service tomorrow prior to discharge for assistance with outpatient rehabilitation. -Mobilization as tolerated.
--- NOTE | 2017-08-06 21:52 | Discharge Summary ---
Visit Information Visit Dates Admission Date: 08/02/17 Discharge Date: 08/07/17 Hospital Course Course Attending Physician: Huan Welsh MD Primary Care Physician: Minerva Pederson APRN Hospital Course: Patient is a 32-year-old female with a past medical history significant for alcohol withdrawal seizures first occurring in 2010, who presented to the [facility] ED complaining of frequent occurrence of alcohol withdrawal seizure and requesting alcohol detoxification. VS on admission: T 98.2, P 97, RR 14, BP 119/74, pulse ox 97% on room air labs on admission: Urine benzo screen +290, serum alcohol 487, WCC 3.3>5.0, H/H 13.9/40.2, platelets 164, sodium 146>134, potassium 4.2, chloride 104, CO2 21, BUN/Cr 12, creatinine 0.5, glucose 95, AST 145>110, ALT 134>107, lipase 506 Patient was admitted to the general medicine floor for treatment of the following problems #alcohol withdrawal Patient has a history of alcohol withdrawal seizures. RUQ US was suggestive of steatosisShe was started on scheduled PO ativan with breakthrough IV ativan given per [facility] protocol. She tolerated the tapering of scheduled ativan well and was eventually weaned off without the need for breakthrough IV doses. Nausea was controlled with phenergen. Oral supplementation was given with Thaimine, Folic acid and multivitamins. Social work was consulted due to history of alcohol abuse. #Alcoholic pancreatitis, mild Lipase was elevated elevated on admission at 506. Patient initially had abdominal tenderness in her epigastric area. Aggressive fluid rehydration was given with lactated ringers. DVT prophylaxis was addressed with ALPS and early ambulation Allergies: Coded Allergies: No Known Allergies (08/01/17) Significant Procedures: RUQ US 1. Liver is diffusely hyperechoic -- suggestive of steatosis. 2. Gallbladder is normal. Pertinent Lab Results: TSH:1.180 Free T4: 1.06 Disposition Summary Disposition Principal Diagnosis: Alcohol withdrawal Additional Diagnosis: Alcoholic pancreatitis, History of alcohol withdrawal seizures Discharge Disposition: home or self care Discharge Instructions General Discharge Information Code Status: Full Code Patient's Diet: Regular Patient's Activity: as tolerated Follow-Up Instructions/Appts: Follow up with your primary care physician within 1 week of discharge Medications at Discharge Discharge Medications: Start taking the following new medications: Folic Acid (Folic Acid) 1 MG TABLET 1 Milligram ORAL DAILY Qty = 30 No Refills Instructions: . Comments: Last Taken: 08/07/17 Time: 0830AM Thiamine HCl (Vitamin B-1) 100 MG TABLET 100 Milligram ORAL DAILY Qty = 30 No Refills Instructions: . Comments: Last Taken: 08/07/17 Time: 0830AM Copies To: Minerva Pederson APRN
--- NOTE | 2017-08-06 21:53 | Patient Discharge Instructions ---
Discharge Instructions General Discharge Information You were seen/treated for: Alcohol withdrawal Alcoholic pancreatitis Special Instructions: Please follow up with your primary care physician within one week of discharge Acute Coronary Syndrome Inclusion Criteria At DC or during hospital stay patient has or had the following: ACS DIAGNOSIS No Discharge Core Measures Meds if any: Prescribed or Continued at Discharge Meds if any: NOT Prescribed or Continued at Discharge Congestive Heart Failure Inclusion Criteria At DC or during hospital stay patient has or had the following: CHF DIAGNOSIS No Discharge Core Measures Meds if any: Prescribed or Continued at Discharge Meds if any: NOT Prescribed or Continued at Discharge Cerebrovascular accident Inclusion Criteria At DC or during hospital stay patient has or had the following: CVA/TIA Diagnosis No Discharge Core Measures Meds if any: Prescribed or Continued at Discharge Meds if any: NOT Prescribed or Continued at Discharge Venous thromboembolism Inclusion Criteria VTE Diagnosis No VTE Type NONE VTE Confirmed by (Test) NONE Discharge Core Measures - Per Current guidelines, there needs to be overlap - treatment for the first 5 days of Warfarin therapy. - If discharged on Warfarin prior to 5 days of - overlap therapy, the patient will need to be - assessed for post discharge needs including - *Post discharge parental anticoagulation - *Warfarin and/or parental anticoagulation education - *Follow up date to check INR post discharge At least 5 days overlap therapy as Inpatient No Meds if any: Prescribed or Continued at Discharge Note: Overlap Therapy is Warfarin and Anticoagulant Meds if any: NOT Prescribed or Continued at Discharge
[2017-08-07 07:19] VITALS: BP 104/54
--- NOTE | 2017-08-07 09:12 | PN- Housestaff ---
Elana HOU,Lena 08/07/17 0912: Subjective Follow-up For: Alcohol withdrawal Transaminitis Pancreatitis Subjective: Patient is seen and examined at bedside, she denies any complaints except feeling mild anxiety at night for which she was given 1 mg IV Ativan which helped with her anxiety. She denies any shakiness, fever, chills, chest pain, nausea, vomiting, diarrhea Review of Systems Constitutional: Denies: no symptoms. Cardiovascular: Denies: no symptoms. Respiratory: Denies: no symptoms. Gastrointestinal: Denies: no symptoms. Genitourinary: Denies: no symptoms. Neurological/Psychological: Denies: ataxia, headache, numbness, paresthesia, tremors. Objective Last 24 Hrs of Vital Signs/I&O Vital Signs Date Time Temp Pulse Resp B/P B/P Pulse O2 O2 Flow FiO2 Mean Ox Delivery Rate 08/07 07 97.9 75 20 104/54 97 08/06 2251 98.0 87 18 124/72 100 Room Air 08/06 1800 98.5 93 18 124/78 08/06 1600 97.4 84 18 120/70 08/06 1600 974.0 84 18 120/70 100 Room Air Intake & Output 08/07 1600 08/07 0800 08/07 0000 Intake Total 800 1200 600 Output Total Balance 800 1200 600 Intake, IV 300 1200 600 Intake, Oral 500 Physical Exam General Appearance: Alert, Oriented X3, Cooperative, No Acute Distress HEENT: Atraumatic, PERRLA, EOMI, Mucous Membr. moist/pink Neck: Supple, No JVD Cardiovascular: Regular Rate, Normal S1, Normal S2, No Murmurs Lungs: Clear to Auscultation Abdomen: Normal Bowel Sounds, Soft, No Tenderness Neurological: Normal Speech, Strength at 5/5 X4 Ext, Normal Tone Extremities: No Clubbing, No Cyanosis, No Edema Assessment/Plan Assessment: Patient is a 32-year-old female with a past medical history significant for alcohol withdrawal seizures first occurring in 2010, who presented to the ED complaining of frequent occurrence of alcohol withdrawal seizure and requesting alcohol detoxification. Alcohol withdrawal: Given patient's history of alcohol withdrawal seizures is being treated with scheduled Ativan with CIWA protocol breakthrough. Overnight patient CIWA score is 8. -We will taper the Ativan, currently the patient is on Ativan 0.5 mg every 12 . But still basically continue CIWA protocol. -Initially ordered Zofran for nausea, patient stated provided little relief, switched to Phenergan which had provided relief in past. Pancreatitis: -On admission patient's lipase was 506 with complain of abdominal pain. -We will give patient IV hydration with Ringer's lactate at the rate of 150 mL per hour considering her complain of nausea. -On the patient is tolerating food but she is not drinking or eating much. Alcoholic steatosis: Patient has mild transaminitis and right upper quadrant ultrasound shows hypoechoic liver likely representing steatosis secondary to alcohol abuse. Thyroid function tests were done due to patient reported history of type thyroidism, these were within normal limits Patient is a stable for discharge home today. DVT prophylaxis: -Alps, platelet count <100 CODE STATUS: -Full code Problem List: 1. Transaminitis 2. Pancreatitis, acute 3. Alcohol withdrawal seizure Pain Ratin Pain Location: n/a Pain Goal: Pain 4 or less Pain Plan: per paway Tomorrow's Labs & Rationales: n/a George Cortes MD 08/07/17 1527: Attending MD Review Statement Attending Statement Attending MD Statement: examined this patient, discuss w/resident/PA/SURVEY CAD TECHNICIAN, agreed w/resident/PA/SURVEY CAD TECHNICIAN, reviewed EMR data (avail)
[2017-08-07] MEDS ORDERED: FOLIC ACID1 M1 PO ×2 (10:14→11:58)
[2017-08-07] MEDS ORDERED: VITAMIN B-1100 MG PO ×2 (10:14→11:58)
== END 2017-08-07 12:27 | DRG 775 ==
LOC: ERH 15:10 → ERHI 08-02 14:40 → 2NB 08-02 14:40 → ENRESERV 08-02 16:19 → 2NB 08-02 18:05 → ENPENDDIS 08-07 12:01 → 2NB 08-07 12:27
PROVIDERS: Dermatology; Emergency Medicine; Student in an Organized Health Care Education/Training Program
DX: F10.239 Alcohol dependence with withdrawal, unspecified (principal); G40.509 Epileptic seizures related to external causes, not intractable, without status epilepticus; Y90.8 Blood alcohol level of 240 mg/100 ml or more; F50.89 Other specified eating disorder; F41.9 Anxiety disorder, unspecified; F32.9 Major depressive disorder, single episode, unspecified; K76.0 Fatty (change of) liver, not elsewhere classified; K86.0 Alcohol-induced chronic pancreatitis; F17.210 Nicotine dependence, cigarettes, uncomplicated; R74.0 Nonspecific elevation of levels of transaminase and lactic acid dehydrogenase [LDH]; E86.0 Dehydration; E87.1 Hypo-osmolality and hyponatremia
CPT/HCPCS: 2NBSP; 84133; 84300; 36415; 73130-RT; 80307; 81025; 82436; 82570; 93005; 93010; 96374; 96375; 96376; G0480; J0131; J2405; J2550; J3101; J3490; J7120

== ENCOUNTER 2017-09-06 16:02 | Inpatient (IN) | payer OTHER ==
[~2017-09-06] VITALS: Ht 172.7 cm; Wt 63.6 kg
[~2017-09-06 16:02] MED LIST changes: +FOLIC ACID1 M1 PO; +VITAMIN B-1100 MG PO
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
--- NOTE | 2017-09-06 17:16 | RADIOLOGY REPORT ---
EXAMINATION: XRY-HAND, RIGHT, XRY-WRIST COMPLETE-LEFT CLINICAL INFORMATION: Pain and swelling sp breaking glass door. Question glass in right hand COMPARISON: None. TECHNIQUE: 4 views left wrist including a scaphoid view. 3 views of the right hand. FINDINGS: Right hand: No fracture or dislocation seen. Normal mineralization and alignment. The metacarpophalangeal and interphalangeal joint spaces are maintained. No radiopaque foreign body seen. 7 mm negative ulnar variance. Left wrist: Intercarpal joint spaces are maintained. There is mild radiocarpal joint space narrowing. 4-5 mm negative ulnar variance. No fracture or dislocation seen. No radiopaque foreign body seen. IMPRESSION: No radiopaque foreign body or fracture seen in the right hand or left wrist. Please note that many forms of glass are not radiopaque.
[2017-09-06 17:28] LABS: ABSOLUTE BASOPHIL COUNT 0.1 /CUMM (0.0-0.2); ABSOLUTE EOSINOPHIL COUNT 0 /CUMM (0.0-0.7); ABSOLUTE GRANULOCYTE CT 3.1 /CUMM (1.4-6.5); ABSOLUTE LYMPH COUNT 2.1 /CUMM (1.2-3.4); ABSOLUTE MONOCYTE COUNT 0.2 /CUMM (0.10-0.60); BASOPHIL % 1.4 % (0.0-2.0); EOSINOPHIL % 0.2 % (0-5); GRANULOCYTE % 56.5 % (42.2-75.2); HEMATOCRIT 37.7 % (37-47); MEAN CORPUSCULAR HGB 29.4 PG (27.0-31.0); MEAN CORPUSCULAR HGB CONC 33.2 G/DL (33.0-37.0); MEAN CORPUSCULAR VOLUME 88.5 FL (81.0-99.0); MEAN PLATELET VOLUME 7.5 FL (7.4-10.4); PLATELET COUNT 222 /CUMM (130-400); RBC DISTRIBUTION WIDTH 14.3 % (11.5-14.5); RED BLOOD CELL CT 4.25 /CUMM (4.20-5.40); WHITE BLOOD CELL COUNT 5.5 /CUMM (4.8-10.8)
[2017-09-06 19:11] VITALS: BP 95/56
[2017-09-06] MEDS ORDERED: NAPROSYN500 M1 PO (19:12)
[2017-09-06] MEDS ORDERED: KEFLEX500 M1 PO (19:12)
[2017-09-06 21:09] VITALS: BP 107/57
[2017-09-06 23:21] VITALS: BP 103/95
[2017-09-06 23:40] VITALS: BP 110/73
[2017-09-07] VITALS (12 sets, daily range): BP systolic 86–115; BP diastolic 52–79
--- NOTE | 2017-09-07 10:14 | ED PSYCH CRISIS CONSULTATION ---
Crisis Consult Basic Assessment Date of Consult: 09/07/17 Responsible Person/Accompanied By: self Insurance Authorization: Insurance #1: Insurance name: CHIQUI Payton C&A Phone number: Policy number: [id number] Group number: Authorization number: ED Provider: Patient's ED Provider: Harmony Nickerson MD Primary Care Physician: Patient's PCP: Minerva Pederson APRN PCP's Current Psychiatrist: None Chief Complaint: General Adult Patient's Quote: "I dont know" Present Illness: Pt orin last night, 09/06/17 due to tried to break down a door/ window to get back into her apartment as she was locked out. Pt was x-rayed; no frature found. Pt required sutures for lacersations on her wrists. Pt was intoxicated with a BAL of 255 upon arrival. Pt was put on CIWA protocol due to past history of medical admissions for withdrawal. Highest CIWA score was 8 overnight and this morning was down to 2. Pt's urine toxicology report was positive for Benzodiazepams that pt reports she had an older prescription for before she went to rehab. When meeting with crisis today, 09/07/17, patient minimized her alcohol use and mental health issues. She was focused on getitng out to go home. She said last night she drank too much and tried to get into her house which was locked so she tried to break the door/window. She reports she drank 1/2 pint of vodka. She was very vague when questioned about what led for her to get so upset last night that led her to drink 1/2 pint of vodka. She spoke very vaguely about seeing an exboyfriend that she hasn't seen in a while and that their conversation brought up a lot of emotions. Pt denies any inpatient hospitals. Pt's PCP, Minerva Nunez APRN suggested Lexapro but she has not started Lexapro. Pt reports she was [place] when she used to cut. Pt minimizing her ETOH use to this clinician based on her prior records. Pt reports she used to have a drinking problem- that she went to rehab a couple times- [place] and [facility]. Most recent Rehab was Apr 2017. Pt reports she drinks less frequently and sometimes has short binges. She reports she has an old prescription for Benzodiazepams. She denies ilicit drug use with the exception of marijuana as a teenager. Pt does not believe she needs any more recieves that she sometimes goes to AA and sometimes speaks with her manager party. Pt denies need for futher treatment. Pt was asking for ativan to prevent withdrawl. Discussed with nursing and Dr. Nickerson (ED physician)- Pt's LEE doesn't warrent Ativan and pt blood pressure is low so no ativan will be given. Pt requested something for nausea which was given by nursing. Pt reports she has an 11 year old son whose father and pt have joint custody and shared guardianship. Pt reports son is with his father at this time. Pt denies past or present DCF involvement. Crisis spoke to patient's mother, Yenni Coreas ([phone]). Mother reports she is currently in [place] but was last up in [place] in July when she brought pt to ED. Per records, pt was seen in ED for alcohol intoxication and subsequently admitted medically due to withdrawl symptoms. Mother is extremely concerned about her daughter. She report that in addition to the alcohol use, pt has a history of an Eating Disorder that was treated at [facility]. Pt was at [facility] for 9 months in [id number]. Her most recent rehab was [place] in April 2017. Mom reports she was in [place] a couple times but doesn't remember the dates. Mom reports that the pt makes suicidal statements when she is intoxicated but is fearful that she will actually kill herself. When crisis informed mom about the current lacerations on patient's wrist, mom believes that patient is cutting again. Mom reports there was a time in which she required 20+ stitches for breaking a glass bottle and digging it into her thigh. Per past treatment records she was seen in the ED and recieved 27 stitches on her thigh and notes indicate pt reported then that she fell on a broken glass bottle. Mom reports that there was absolutely no way that it happened the way the pt reported back then and she self inflicted those injuries. Mom additionally offers that pt used to be a "sexaholic". In reviewing pt records, pt was seen by Kaushik Malik APRN in April 2015 following pt having a stillborn . Per Kaushik's records, pt did not meet criteria for acute psychiatric admission and follow up treatment with [facility] was recommended. Crisis consulted with Dr. Berrios. Pt meets criteria for inpatient psychiatric admission. Pt will be placed on PEC as pt is requesting to leave. Pt will be admitted to [facility]. Patient's Address: [address] [place] [address] Other Who Do You Live With? Patient/Self Family/Informants Interviewed: Crisis spoke with mother, Yenni Coreas . Allergies - Coded Allergies: No Known Allergies (08/01/17) Current Medications - Scheduled Medications Folic Acid 1 MG TABLET 1 MG PO DAILY alcohol dependence #30 TAB Prescribed by Lena Huitron MD on 08/07/17 Thiamine HCl (Vitamin B-1) 100 MG TABLET 100 MG PO DAILY alcohol dependence # 30 TAB Prescribed by Lena Huitron MD on 08/07/17 Scheduled PRN Medications Cephalexin (Keflex) 500 MG CAPSULE 1 CAP PO TID PRN UTI #21 CAP Prescribed by Mahnaz Perez on 09/06/17 Naproxen (Naprosyn) 500 MG TABLET 1 TAB PO BID PRN PAIN #10 TAB Prescribed by Mahnaz Perez on 09/06/17 Laboratory Results: Laboratory Tests 09/06/17 1815: Urine Opiates Screen < 100.00, Methadone Screen < 40, Barbiturate Screen < 60, Ur Phencyclidine Scrn < 6.00, Amphetamines Screen < 100, U Benzodiazepines Scrn > 800 H, Urine Cocaine Screen < 50, Urine Cannabis Screen < 5.00, Urine Color YEL, Urine Clarity HAZY H, Urine pH 6.0, Ur Specific [place] 1.020, Urine Protein 30 H, Urine Ketones TRACE H, Urine Nitrite NEG, Urine Bilirubin NEG, Urine Urobilinogen 0.2, Ur Leukocyte Esterase MOD H, Ur Microscopic SEDIMENT EXAMINED, Urine RBC 5-10 H, Urine WBC > 75 H, Ur Epithelial Cells MANY H, Urine Bacteria FEW H, Urine Hemoglobin TRACE-INTACT, Urine Glucose NEG, Urine Test NEGATIVE 09/06/17 1718: Anion Gap 17 H, Estimated GFR > 60, BUN/Creatinine Ratio 21.7, Glucose 81, Calcium 9.2, Total Bilirubin 0.5, AST 59 H, ALT 35, Alkaline Phosphatase 74, Total Protein 7.8, Albumin 5.1 H, Globulin 2.7, Albumin/Globulin Ratio 1.9, TSH &T3 &Free T4 Intrp 0.337, CBC w Diff NO MAN DIFF REQ, RBC 4.25, MCV 88.5, MCH 29.4, MCHC 33.2, RDW 14.3, MPV 7.5, Gran % 56.5, Lymphocytes % 38.9, Monocytes % 3.0, Eosinophils % 0.2, Basophils % 1.4, Absolute Granulocytes 3.1, Absolute Lymphocytes 2.1, Absolute Monocytes 0.2, Absolute Eosinophils 0, Absolute Basophils 0.1, Serum Alcohol 255.0 Microbiology 09/06 1814 URINE ROUT: Urine Culture - RES GRAM POSITIVE COCCI Past History Past Medical History Neurological: seizure EENT: NONE Cardiovascular: NONE Respiratory: NONE Gastrointestinal: NONE Hepatic: NONE Renal: NONE Musculoskeletal: fracture Psychiatric: alcohol dependence, anxiety, depression Endocrine: hyperthyroidism Blood Disorders: NONE Cancer(s): NONE 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 Past Surgical History Surgical History: , breast augmentation, fractured right arm surgery Psychosocial History Strengths/Capabilities: supportive loved ones Physical Limitations (Interventions): none Psychiatric Treatment History Psych Treatment Psychiatric Treatment Yes Inpatient Treatment No Outpatient Treatment Yes Location of Treatment [facility] Reason for Treatment depression Dates of Treatment Multiple Response to Treatment poor, mom reports pt often "quits" therapy Diagnosis by History: Anxiety Alcohol Abuse Substance Use/Abuse History Drug Use/Abuse 1 Substances Used/Abused Yes Substance Used/Abused Alcohol First Use unk Last Used 09/06/17 How much used/taken 1/2 pint vodka How often "less frequently" "somtimes binges" For how long over 10 years Route of use oral Drug Use/Abuse 2 Substances Used/Abused Yes Substance Used/Abused Benzodiazepines First Use unk Last Used 09/06/17 How much used/taken unsure How often varies For how long old rx from before rehab in Apr 2017 Route of use oral Substance Abuse Treatment Substance Abuse Treatment Past Substance Abuse TX Yes Inpatient Treatment Yes Outpatient Treatment Yes Location of Treatment [facility] Reason for Treatment Alcohol Dates of Treatment multiple Response to Treatment poor Comments: frequent relapses Current Mental Status Mental Status Orientation: Person, Place, Situation Affect: Variable Speech: WNL Neuro-vegetative: Sleep Disturbance Appearance Appearance- Dress/Hygiene: pt presented in hospital attire with bandages on both wrists and her right fingers. She also has multiple visable tattoos on her forearms. A navel ring was noticed when she lifted up her arms and her scrub top exposed her stomach. Behaviors Thought Process: WNL Thought Content: WNL Memory: Impaired (impaired vs guarded) Insight: Poor SI/HI Risk Assessment Past Suicidal Ideation/Attempts Yes Current Suicidal Ideation/Att No Past Homicidal Ideation/Att: No Current Homicidal Ideation/Attempts No Degree of Intent: Self Destructive/No Danger To: Self Gravely Disabled: Lack of Insight, Poor Impulse Control, Poor Judgment Risk Factors: high anxiety/distress, SA/MH hospitalized, substance abuse, poor impulse control, lives alone, limited support Lethality Ratin PTSD Checklist PTSD Done? 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 Pt denies cuts on wrists were a suicide attempt or self inflicted. Mother believes they are self inflicted due to her history of cutting in the past. Mom reports pt disclosed SI to her in July. Mom is fearful that pt will kill herself. Type of IP Admission: PEC Referrals Minerva Pederson APRN (PCP/Family)
--- NOTE | 2017-09-07 11:27 | IP CRISIS DIAG ASSESS PSYCH ---
Diagnostic Assessment Basic Assessment Insurance Authorization: Insurance #1: Insurance name: CHIQUI Payton C&A Phone number: Policy number: [id number] Group number: Authorization number: PENDING Primary Care Physician: Patient's PCP: Minerva Pederson APRN PCP's Patient's Quote: "I dont know" Present Illness: Pt orin last night, 09/06/17 due to tried to break down a door/ window to get back into her apartment as she was locked out. Pt was x-rayed; no frature found. Pt required sutures for lacersations on her wrists. Pt was intoxicated with a BAL of 255 upon arrival. Pt was put on CIWA protocol due to past history of medical admissions for withdrawal. Highest CIWA score was 8 overnight and this morning was down to 2. Pt's urine toxicology report was positive for Benzodiazepams that pt reports she had an older prescription for before she went to rehab. When meeting with crisis today, 09/07/17, patient minimized her alcohol use and mental health issues. She was focused on getitng out to go home. She said last night she drank too much and tried to get into her house which was locked so she tried to break the door/window. She reports she drank 1/2 pint of vodka. She was very vague when questioned about what led for her to get so upset last night that led her to drink 1/2 pint of vodka. She spoke very vaguely about seeing an exboyfriend that she hasn't seen in a while and that their conversation brought up a lot of emotions. Pt denies any inpatient hospitals. Pt's PCP, Minerva Nunez APRN suggested Lexapro but she has not started Lexapro. Pt reports she [place] when she used to cut. Pt minimizing her ETOH use to this clinician based on her prior records. Pt reports she used to have a drinking problem- that she went to rehab a couple times- [place] and [facility]. Most recent Rehab was Apr 2017. Pt reports she drinks less frequently and sometimes has short binges. She reports she has an old prescription for Benzodiazepams. She denies ilicit drug use with the exception of marijuana as a teenager. Pt does not believe she needs any more recieves that she sometimes goes to AA and sometimes speaks with her hand winder. Pt denies need for futher treatment. Pt was asking for ativan to prevent withdrawl. Discussed with nursing and Dr. Nickerson (ED physician)- Pt's CIWA doesn't warrent Ativan and pt blood pressure is low so no ativan will be given. Pt requested something for nausea which was given by nursing. Pt reports she has an 11 year old son whose father and pt have joint custody and shared guardianship. Pt reports son is with his father at this time. Pt denies past or present DCF involvement. Crisis spoke to patient's mother, Yenni Coreas ([phone]). Mother reports she is currently in [place] but was last up in [place] in July when she brought pt to ED. Per records, pt was seen in ED for alcohol intoxication and subsequently admitted medically due to withdrawl symptoms. Mother is extremely concerned about her daughter. She report that in addition to the alcohol use, pt has a history of an Eating Disorder that was treated at [facility]. Pt was at [facility] for 9 months in [id number]. Her most recent rehab was [place] in April 2017. Mom reports she was in [place] a couple times but doesn't remember the dates. Mom reports that the pt makes suicidal statements when she is intoxicated but is fearful that she will actually kill herself. When crisis informed mom about the current lacerations on patient's wrist, mom believes that patient is cutting again. Mom reports there was a time in which she required 20+ stitches for breaking a glass bottle and digging it into her thigh. Per past treatment records she was seen in the ED and recieved 27 stitches on her thigh and notes indicate pt reported then that she fell on a broken glass bottle. Mom reports that there was absolutely no way that it happened the way the pt reported back then and she self inflicted those injuries. Mom additionally offers that pt used to be a "sexaholic". In reviewing pt records, pt was seen by Kaushik Malik APRN in April 2015 following pt having a stillborn . Per Kaushik's records, pt did not meet criteria for acute psychiatric admission and follow up treatment with [facility] was recommended. Crisis consulted with Dr. Berrios. Pt meets criteria for inpatient psychiatric admission. Pt will be placed on PEC as pt is requesting to leave. Pt will be admitted to [facility]. Patient's Address: [address] [place] [address] Other Who Do You Live With? Patient/Self Feel Safe Where You Live? Yes Marital Status: single Do You Have Children? Yes Ages? 11 Primary Language? Singaporean Language(s) Spoken At Home: Singaporean Family/Informants Interviewed: Crisis spoke with mother, Yenni Coreas . Allergies - Coded Allergies: No Known Allergies (08/01/17) Current Medications - Scheduled Medications Folic Acid 1 MG TABLET 1 MG PO DAILY alcohol dependence #30 TAB Prescribed by Lena Huitron MD on 08/07/17 Thiamine HCl (Vitamin B-1) 100 MG TABLET 100 MG PO DAILY alcohol dependence # 30 TAB Prescribed by Lena Huitron MD on 08/07/17 Scheduled PRN Medications Cephalexin (Keflex) 500 MG CAPSULE 1 CAP PO TID PRN UTI #21 CAP Prescribed by Mahnaz Perez on 09/06/17 Naproxen (Naprosyn) 500 MG TABLET 1 TAB PO BID PRN PAIN #10 TAB Prescribed by Mahnaz Perez on 09/06/17 Consequences of Psych Med Use: No current psych meds mom reports she was on antidepressants in the past but doesn't remember what they were Lab Results: Laboratory Tests 09/06/17 1815: Urine Opiates Screen < 100.00, Methadone Screen < 40, Barbiturate Screen < 60, Ur Phencyclidine Scrn < 6.00, Amphetamines Screen < 100, U Benzodiazepines Scrn > 800 H, Urine Cocaine Screen < 50, Urine Cannabis Screen < 5.00, Urine Color YEL, Urine Clarity HAZY H, Urine pH 6.0, Ur Specific [place] 1.020, Urine Protein 30 H, Urine Ketones TRACE H, Urine Nitrite NEG, Urine Bilirubin NEG, Urine Urobilinogen 0.2, Ur Leukocyte Esterase MOD H, Ur Microscopic SEDIMENT EXAMINED, Urine RBC 5-10 H, Urine WBC > 75 H, Ur Epithelial Cells MANY H, Urine Bacteria FEW H, Urine Hemoglobin TRACE-INTACT, Urine Glucose NEG, Urine Test NEGATIVE 09/06/17 1718: Anion Gap 17 H, Estimated GFR > 60, BUN/Creatinine Ratio 21.7, Glucose 81, Calcium 9.2, Total Bilirubin 0.5, AST 59 H, ALT 35, Alkaline Phosphatase 74, Total Protein 7.8, Albumin 5.1 H, Globulin 2.7, Albumin/Globulin Ratio 1.9, TSH &T3 &Free T4 Intrp 0.337, CBC w Diff NO MAN DIFF REQ, RBC 4.25, MCV 88.5, MCH 29.4, MCHC 33.2, RDW 14.3, MPV 7.5, Gran % 56.5, Lymphocytes % 38.9, Monocytes % 3.0, Eosinophils % 0.2, Basophils % 1.4, Absolute Granulocytes 3.1, Absolute Lymphocytes 2.1, Absolute Monocytes 0.2, Absolute Eosinophils 0, Absolute Basophils 0.1, Serum Alcohol 255.0 Microbiology 09/06 1814 URINE ROUT: Urine Culture - RES GRAM POSITIVE COCCI Toxicology Screen Completed? Yes Results: positive Symptoms of Use: Benzodiazepams Past History Past Medical History Medical History: Depression, alcoholism Past Surgical History Surgical History non-contributory Abuse/Trauma History Trauma History/Current Trauma: Denies Legal History Current Legal Status: none Have you ever been arrested? No Psychosocial History Strengths/Capabilities: supportive loved ones Physical Limitations (Interventions): none Psychiatric Treatment History Psych Treatment Psychiatric Treatment Yes Inpatient Treatment No Outpatient Treatment Yes Location of Treatment [facility] Reason for Treatment depression Dates of Treatment Multiple Response to Treatment poor, mom reports pt often "quits" therapy Diagnosis by History: Anxiety Alcohol Abuse Risk Factors: high anxiety/distress, SA/MH hospitalized, substance abuse, poor impulse control, lives alone, limited support Substance Use/Abuse History Drug Use/Abuse minimum 12mo Hx 1 Substances Used/Abused Yes Substance Used/Abused Benzodiazepines First Use unk Last Used 09/06/17 How much used/taken unsure How often varies For how long old rx from before rehab in Apr 2017 Route of use oral Drug Use/Abuse minimum 12mo Hx 2 Substances Used/Abused Yes Substance Used/Abused Alcohol First Use unk Last Used 09/06/17 How much used/taken 1/2 pint vodka How often varies For how long on and off since 20s Route of use oral Substance Abuse Treatment Substance Abuse Treatment Past Substance Abuse TX Yes Inpatient Treatment Yes Outpatient Treatment Yes Location of Treatment [facility] Reason for Treatment Alcohol Dates of Treatment multiple Response to Treatment poor Education History Preferred Learning Style: visual, auditory, experiential Current Mental Status Mental Status Orientation: Person, Place, Situation Affect: Variable Speech: WNL Neuro-vegetative: Sleep Disturbance Appearance Appearance- Dress/Hygiene: pt presented in hospital attire with bandages on both wrists and her right fingers. She also has multiple visable tattoos on her forearms. A navel ring was noticed when she lifted up her arms and her scrub top exposed her stomach. Behaviors Thought Process: WNL Thought Content: WNL Memory: Impaired (impaired vs guarded) Insight: Poor SI/HI Risk Assessment - Minimum 6mo History- Past Suicidal Ideation/Attempts Yes Current Suicidal Ideation/Att No Past Homicidal Ideation/Att: No Current Homicidal Ideation/Attempts No Degree of Intent: Self Destructive/No Danger To: Self Gravely Disabled: Lack of Insight, Poor Impulse Control, Poor Judgment Risk Factors: high anxiety/distress, SA/MH hospitalized, substance abuse, poor impulse control, lives alone, limited support Lethality Ratin Needs/Init TX Plan/Goals: Medication evaluation Psychiatric Evaluation Group Therapy Individual Therapy Family Meeting Increase positive coping skills Relapse Prevention Skills AUDIT-C Questionnaire: AUDIT-C Questionnaire: Response Value ETOH use in the past year 2-4 times/week 3 # drinks typical/day 5 or 6 2 6 or > drinks per occasion Monthly 2 Total 7 DSM5/PS Stressors/Medical Prob Diagnosis' (DSM 5, Stressors, Medical): F32.9 Unspecified Depression F10.20 Alcohol Use Disorder, Severe 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
--- NOTE | 2017-09-07 14:47 | CPS PROVIDER INIT ASMT PSYCH ---
Psychiatric Admission Manager Graphic's Note Reviewed: Yes Patient Seen and Examined: Yes Identifying Information: The patient is a 52-year-old single white cell female who was brought in to the emergency room last night (09/06/2017), reportedly she tried to break down a door window to get back into her apartment and she was locked out she reportedly sustained some cuts that required some sutures for a laceration on her wrists she was intoxicated with a blood alcohol level of 225 Chief Complaint: The patient did not have a chief complaint on arrival to the emergency room reporting "I don't know", but as mentioned earlier she did have a blood alcohol level of 255 upon arrival, the patient's urine toxicology was positive for benzodiazepines as well. Reaction to Hospitalization: The patient's did not object to to the hospitalization however she was focused on the length of stay when I interviewed her and she was hoping to get out of the hospital by Sunday (today is Sunday) History of Present Illness Onset of Illness: The patient reported that she had half a pint of vodka the night she was brought to the emergency room, according to the crisis evaluation allegedly she was minimizing her alcohol use as well as possible benzodiazepine use. The patient acknowledges that she did have issues with alcohol and having been in rehabs at [facility]. Reportedly her most recent rehabilitation was in April 2017. Circumstances Leading to Admission: Intoxication and conduct disorder resulting in possibly accidental accidental injuries to her wrists with the lacerations requiring 6 sutures Problem(s) Justifying Need for Admission: Need for detox as well as very poor judgment resulting in lacerations to forearms Past Psychiatric History Past Diagnosis(es)- if any: The patient does have a history of previous psychiatric treatment it's not clear what her previous diagnoses were other than of course alcohol use disorder and sedative hypnotic use disorder and possibly had issues with depression or anxiety she was at one point prescribed Lexapro but did not take it because she was drinking at the same time Past Precipitating Factors- if any: Alcohol use - Include inpatient and outpatient treatment Treatment History: Patient has had rehabs as mentioned earlier including the [facility] the record also indicated that the patient may have received treatment with [facility] and [facility] (?) History of Suicide Attempts or Gestures The patient reported self-destructive behaviors or self injury but denied suicide intent with these the self-destructive behaviors including self cutting Substance Abuse History: Alcohol use disorder and as a teenager cannabis use disorder Allergies: Coded Allergies: No Known Allergies (08/01/17) Home Med List: The patient never took the Lexapro that was prescribed because she said that she was drinking at the time her urine toxicology was positive for benzodiazepines but when the [place] prescription monitoring program site was checked there were no prescribed benzos for for her so most likely she may have gotten these either off the street or from friends and acquaintances - Include any medical condition(s) that may - impact the patient's recovery/remission Past Medical History: History of withdrawal seizures by her report and hyperthyroidism Past History Medical History Neurological: seizure EENT: NONE Cardiovascular: NONE Respiratory: NONE Gastrointestinal: NONE Hepatic: NONE Renal: NONE Musculoskeletal: fracture Psychiatric: alcohol dependence, anxiety, depression Endocrine: hyperthyroidism Blood Disorders: NONE Cancer(s): NONE 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 History of MRSA: No History of VRE: No History of CDIFF: No Isolation History: Standard Tetanus Vaccine: 02/14/12 Tetanus Status: up to date Surgical History Surgical History: non-contributory Psychiatric Family/Social Hx Family History Psychiatric Illness: Family history the history to follow Substance Use: Family substance abuse to follow Suicides: Will reevaluate on Sunday Social History Living Situation: She reports that she has a stable living situation Significant Relationships (family/friends): Family as well as friends including male friends Education: Please refer to the psychosocial assessment Vocation/Occupation: Please refer to the psychosocial assessment for details Legal: Denied facing current legal charges please refer to the psychosocial assessment for details on past history Healthly Behaviors Screening Tobacco Screening Tobacco Use from ED Docu: Never used - If tobacco counseling indicated - the following topics are required. - #1 Recognizing dangerous situations. - #2 Coping Skills. - #3 Basic information about quitting. Status of Tobacco Cessation Counseling: Not Applicable Cessation Med Status Not Applicable Alcohol Screening - ETOH screen POS if BAL >=80 or Audit-C>= M4/F3 Audit-C Score from Diag Assess: 7 Blood Alcohol Level: Laboratory Tests 09/06 1718 Toxicology Serum Alcohol (<10 MG/DL) 255.0 Alcohol Use Screening Results: Pos per Audit C &/or BAL - If ETOH counseling indicated - the following topics are required. - #1 Express concern about the patient's - drinking at unhealthy levels, include informing - of national norms for moderate drinking: - men <= 14 drinks/week, max 4 drinks/occasion - women <= 7 drinks/week, max 3 drinks/occasion - #2 Providing feedback, including linking alcohol to - negative physical effects (liver injury, hypertension) - negative emotional effects (relationship problems and - depression) - negative occupational consequences (reduced work - performance) - #3 Advising the patient to abstain from alcohol or - to drink below national norms for moderate drinking - (as listed above). Status of ETOH Use Counseling: #1, #2 AND #3 Completed. Metabolic Screening - Screen if on a Neuroleptic Medication - Metabolic screening should include: - Blood Pressure, BMI, Glucose or Hgb A1c, & a - Lipid profile from within the past 365 days. Metabolic Screening X Not Applicable, patient not on a neuroleptic. Exam and Plan Mental Status Examination Ambulation Status: full mobility Appearance: tattoes Attitude towards examiner: Calm and cooperative Psychomotor activity: Normal psychomotor activity Behavior: No abnormal behaviors and no bizarre behaviors Quality of speech: Normal speech Affect: Good range of affect Mood: Anxious Suicidal Ideation: Denied suicidal ideation Homicidal Ideation: Denied homicidal ideation Hallucinations: Denied hallucinations Paranoid/Delusional Material: Denied feeling paranoid, there were no delusions Difficulties with thought organization: No difficulties with thought organization Insight: Partial insight Judgment: Judgment depends on sobriety Orientation: Oriented to time place and person Cognition: no cognitive deficits Memory Function: No evidence of short-term memory impairment Estimate of intellectual functioning: Average Assets/Strengths Patient Identified Assets/Strengths: Ration seems to be a likable and she has supportive family and friends Impression/Plan - Include all active medical diagnosis that require tx DSM 5 Diagnosis(es): 32-year-old single white female who presented to the emergency room intoxicated and sustained lacerations to her forearms requiring sutures probably because of breaking a window after she locked herself out - Initial Tx Plan for Active Psych & Medical Conditions Treatment Plan: Inpatient psychiatric care and 15 minute checks Nursing assessments vital signs and education in Aftercare planning by manager social Group therapy Milieu therapy Psychiatrist evaluate patient's mental status and medications daily CIWA with Ativan taper - Factors that would help patient function - in a less restrictive setting. Factors: Abstinence from alcohol
--- NOTE | 2017-09-07 15:21 | History & Physical ---
General Information and HPI MD Statement: I have seen and personally examined BERNADINE VILLANUEVA and documented this H&P. The patient is a 32 year old F who presented with a patient stated chief complaint of depression/alcohol intoxication Source of Information: patient Exam Limitations: no limitations History of Present Illness: 32-year-old female with past medical history significant for anxiety, depression , alcohol dependence who was brought in by ambulance to the emergency room after she sustained lacerations on her right hand. Patient was intoxicated and tried to get into her apartment. She had lost acute therefore she tried to punch the window. She sustained multiple lacerations on her right hand. Patient claims that she used to be on Trileptal before that was controlling her depression. She has been weaned off of it and her primary care doctor had recommended Lexapro but she has not started taking that. Currently she is complaining of pain in her right hand which is not controlled with Tylenol. She denies any urinary burning or pain. Allergies/Medications Allergies: Coded Allergies: No Known Allergies (08/01/17) Home Med list Cephalexin (Keflex) 500 MG CAPSULE 1 CAP PO TID PRN UTI Folic Acid 1 MG TABLET 1 MG PO DAILY alcohol dependence . Naproxen (Naprosyn) 500 MG TABLET 1 TAB PO BID PRN PAIN Thiamine HCl (Vitamin B-1) 100 MG TABLET 100 MG PO DAILY alcohol dependence . 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 Psychosocial History Where do you live? Home Who Do You Live With? spouse Primary Language: Belarusian ETOH Use: denies use Illicit Drug Use: denies illicit drug use Living Will? unknown Power of Manager Bench/HCP? unknown Review of Systems Review of Systems Constitutional: Reports: see HPI. EENTM: Reports: see HPI. Cardiovascular: Reports: see HPI. Respiratory: Reports: see HPI. GI: Reports: see HPI. Musculoskeletal: Reports: see HPI. Skin: Reports: see HPI. Neurological/Psychological: Reports: see HPI. Exam & Diagnostic Data Last 24 Hrs of Vital Signs/I&O Vital Signs Date Time Temp Pulse Resp B/P B/P Pulse O2 O2 Flow FiO2 Mean Ox Delivery Rate 09/07 1402 98.7 67 114/66 02 1204 98.7 89 18 115/61 02/02 1200 98.7 86 18 115/61 100 Room Air 02/ 0900 97.8 62 18 105/68 02/ 0900 97.8 62 17 105/68 100 Room Air 02/ 0640 95.8 70 18 95/54 02/02 0640 95.8 70 18 95/54 100 Room Air 02/ 0440 97.8 69 18 98/53 02/ 0440 97.8 69 18 98/53 100 Room Air / 0229 97.7 83 20 108/79 02/ 0228 97.7 83 20 108/79 02/01 2340 97.9 93 20 110/73 02/ 2321 97.4 86 18 103/95 02/01 2301 97.4 86 18 103/95 95 02/01 2109 97.7 79 16 107/57 02/01 2107 97.9 79 16 107/57 97 Room Air 02/01 1911 97.0 68 16 95/56 02/01 1906 97.0 68 16 95/56 98 Room Air 02/ 1635 Room Air 02 1616 97.8 79 16 125/68 99 Room Air Intake & Output 09/07 1600 09/07 0800 09/07 0000 Intake Total Output Total Balance Patient 140 lb 138 lb Weight Weight Reported by Patient Measurement Method Physical Exam General Appearance Alert, Oriented X3, Cooperative Skin Multiple lacerations on right hand, one was sutured. HEENT PERRLA Neck Supple Cardiovascular Regular Rate, Normal S1, Normal S2 Lungs Clear to Auscultation Abdomen Normal Bowel Sounds, Soft, No Tenderness Neurological Cranial Nerves II through XII: Intact Extremities No Edema Last 24 Hrs of Labs/Marty: Laboratory Tests 09/06/17 1815: Urine Opiates Screen < 100.00, Methadone Screen < 40, Barbiturate Screen < 60, Ur Phencyclidine Scrn < 6.00, Amphetamines Screen < 100, U Benzodiazepines Scrn > 800 H, Urine Cocaine Screen < 50, Urine Cannabis Screen < 5.00, Urine Color YEL, Urine Clarity HAZY H, Urine pH 6.0, Ur Specific [place] 1.020, Urine Protein 30 H, Urine Ketones TRACE H, Urine Nitrite NEG, Urine Bilirubin NEG, Urine Urobilinogen 0.2, Ur Leukocyte Esterase MOD H, Ur Microscopic SEDIMENT EXAMINED, Urine RBC 5-10 H, Urine WBC > 75 H, Ur Epithelial Cells MANY H, Urine Bacteria FEW H, Urine Hemoglobin TRACE-INTACT, Urine Glucose NEG, Urine Test NEGATIVE 09/06/17 1718: Anion Gap 17 H, Estimated GFR > 60, BUN/Creatinine Ratio 21.7, Glucose 81, Calcium 9.2, Total Bilirubin 0.5, AST 59 H, ALT 35, Alkaline Phosphatase 74, Total Protein 7.8, Albumin 5.1 H, Globulin 2.7, Albumin/Globulin Ratio 1.9, TSH &T3 &Free T4 Intrp 0.337, CBC w Diff NO MAN DIFF REQ, RBC 4.25, MCV 88.5, MCH 29.4, MCHC 33.2, RDW 14.3, MPV 7.5, Gran % 56.5, Lymphocytes % 38.9, Monocytes % 3.0, Eosinophils % 0.2, Basophils % 1.4, Absolute Granulocytes 3.1, Absolute Lymphocytes 2.1, Absolute Monocytes 0.2, Absolute Eosinophils 0, Absolute Basophils 0.1, Serum Alcohol 255.0 Microbiology 09/06 1814 URINE ROUT: Urine Culture - RES GRAM POSITIVE COCCI Assessment/Plan Assessment: 32-year-old female with history significant for diarrhea, depression, alcohol dependence who is admitted to Inpatient Psychiatry with worsening depression. She has also sustained lacerations on her right hand secondary to punching on the window with glass. I'm glad ibuprofen to her regimen for pain control. I will also add topical bacitracin to be applied on those lacerations. Per the psych management will be up to psychiatry. Patient does have a dirty looking urine but she is asymptomatic. Will watch off of antibiotics. As Ranked By This Provider Problem List: 1. Alcohol intoxication 2. Depression 3. Laceration Miscellaneous Miscellaneous Documentation Attending Case Discussed With: Nida Gatica MD Primary Care Physician: Minerva Pederson APRN Patient sees these Specialists psychiatrist Level of Patient Care: KRISTIAN Mccall
[2017-09-08] VITALS (8 sets, daily range): BP systolic 100–130; BP diastolic 57–72
--- NOTE | 2017-09-08 11:16 | CP SOUTH PROGRESS NOTE PSYCH ---
Psych (Inpt) Progress Note Progress Note Include the following elements, when applicable: Involvement in the active treatment of the patient with behavioral observations of the patient and the patient's response to the treatment. Review of the ongoing treatment process in the context of the treatment plan. Indication of how multi-disciplinary staff members are carrying out the treatment plan. Plans for future interventions and recommendations for revision of the treatment plan. Liaison with other physicians/providers. Progress Note: Pt notes that she does not feel she needs to be hospitalized. She reports feeling "fine" with "really good" sleep overnight. She does not some ongoing anxiety and mood sx. In the past, trileptal was very helpful for her, wants to be back on it again. Denies SI or HI. Current Medications Sig/Nestor Start time Last Medication Dose Route Stop Time Status Admin Acetaminophen 650 MG Q6P PRN 09/07 1215 AC 09/07 PO 1441 Al Hydroxide/Mg 30 ML Q4-6 PRN PRN 09/07 1215 AC Hydroxide PO Bacitracin 1 PEGGY BID 09/07 1545 AC 09/08 TOP 0815 Benztropine Mesylate 1 MG Q6P PRN 09/07 1215 AC PO Benztropine Mesylate 1 MG Q6P PRN 09/07 1215 AC IM Escitalopram Oxalate 10 MG 0800 09/08 0800 CAN PO Folic Acid 0 .STK-MED ONE 09/07 1232 DC PO Folic Acid 1 MG DAILY 09/07 1211 AC 09/08 PO 09/09 1001 0812 Gabapentin 600 MG Q6P PRN 09/07 1400 AC PO Gabapentin 300 MG Q6P PRN 09/07 1215 DC PO Haloperidol 5 MG Q6P PRN 09/07 1215 AC PO Haloperidol 5 MG Q6P PRN 09/07 1215 AC IM Hydroxyzine HCl 50 MG Q6P PRN 09/07 1815 AC 09/07 PO 1820 Ibuprofen 600 MG 4 TIMES/DAY PRN 09/07 1545 AC PO Lorazepam 1.5 MG TID 09/07 1600 AC 09/08 PO 0813 Lorazepam 2 MG Q2P PRN 09/07 1215 AC PO Lorazepam 1 MG Q2P PRN 09/07 1215 AC PO Lorazepam 2 MG Q6P PRN 09/07 1215 AC IM Magnesium Hydroxide 30 ML AT BEDTIME PRN 09/07 1215 AC PO Multivitamins 0 .STK-MED ONE 09/07 1232 DC PO Multivitamins 1 TAB DAILY 09/07 1211 AC 09/08 PO 0812 Ondansetron HCl 4 MG Q6P PRN 09/08 0711 AC 09/08 PO 0723 Thiamine HCl 0 .STK-MED ONE 09/07 1232 DC PO Thiamine HCl 100 MG DAILY 09/07 1211 AC 09/08 PO 09/09 1001 0813 Trazodone HCl 50 MG AT BEDTIME NEED.. 09/07 1215 AC PO Laboratory Tests 09/06 1815 Toxicology Urine Opiates Screen (>2000 NG/ML) < 100.00 Methadone Screen (>300 NG/ML) < 40 Barbiturate Screen (>200 NG/ML) < 60 Ur Phencyclidine Scrn (>25 NG/ML) < 6.00 Amphetamines Screen (>1000 NG/ML) < 100 U Benzodiazepines Scrn (>200 NG/ML) > 800 H Urine Cocaine Screen (>300 NG/ML) < 50 Urine Cannabis Screen (>50 NG/ML) < 5.00 Urines Urine Color (YEL,AMB,STR) YEL Urine Clarity (CLEAR) HAZY H Urine pH (5.0 - 8.0) 6.0 Ur Specific [place] (1.001 - 1.035) 1.020 Urine Protein (NEG,<30 MG/DL) 30 H Urine Ketones (NEG) TRACE H Urine Nitrite (NEG) NEG Urine Bilirubin (NEG) NEG Urine Urobilinogen (0.1 - 1.0 EU/dl) 0.2 Ur Leukocyte Esterase (NEG) MOD H Ur Microscopic SEDIMENT EXAMINED Urine RBC (0 - 5 /HPF) 5-10 H Urine WBC (0 - 2 /HPF) > 75 H Ur Epithelial Cells (NONE,FEW) MANY H Urine Bacteria (NEG/NONE) FEW H Urine Hemoglobin (NEG) TRACE-INTACT Urine Glucose (N MG/DL) NEG Urine Test NEGATIVE 09/06 1717 Chemistry Sodium (137 - 145 mmol/L) 149 H Potassium (3.5 - 5.1 mmol/L) 4.5 Chloride (98 - 107 mmol/L) 104 Carbon Dioxide (22 - 30 mmol/L) 28 Anion Gap (5 - 16) 17 H BUN (7 - 17 mg/dL) 13 Creatinine (0.5 - 1.0 mg/dL) 0.6 Estimated GFR (>60 ml/min) > 60 BUN/Creatinine Ratio (7 - 25 %) 21.7 Glucose (65 - 99 mg/dL) 81 Calcium (8.4 - 10.2 mg/dL) 9.2 Total Bilirubin (0.2 - 1.3 mg/dL) 0.5 AST (14 - 36 U/L) 59 H ALT (9 - 52 U/L) 35 Alkaline Phosphatase (<127 U/L) 74 Total Protein (6.3 - 8.2 g/dL) 7.8 Albumin (3.5 - 5.0 g/dL) 5.1 H Globulin (1.9 - 4.2 gm/dL) 2.7 Albumin/Globulin Ratio (1.1 - 2.2 %) 1.9 TSH &T3 &Free T4 Intrp (0.270 - 4.20 uIU/mL) 0.337 Hematology CBC w Diff NO MAN DIFF REQ WBC (4.8 - 10.8 /CUMM) 5.5 RBC (4.20 - 5.40 /CUMM) 4.25 Hgb (12.0 - 16.0 G/DL) 12.5 Hct (37 - 47 %) 37.7 MCV (81.0 - 99.0 FL) 88.5 MCH (27.0 - 31.0 PG) 29.4 MCHC (33.0 - 37.0 G/DL) 33.2 RDW (11.5 - 14.5 %) 14.3 Plt Count (130 - 400 /CUMM) 222 MPV (7.4 - 10.4 FL) 7.5 Gran % (42.2 - 75.2 %) 56.5 Lymphocytes % (20.5 - 51.1 %) 38.9 Monocytes % (1.7 - 9.3 %) 3.0 Eosinophils % (0 - 5 %) 0.2 Basophils % (0.0 - 2.0 %) 1.4 Absolute Granulocytes (1.4 - 6.5 /CUMM) 3.1 Absolute Lymphocytes (1.2 - 3.4 /CUMM) 2.1 Absolute Monocytes (0.10 - 0.60 /CUMM) 0.2 Absolute Eosinophils (0.0 - 0.7 /CUMM) 0 Absolute Basophils (0.0 - 0.2 /CUMM) 0.1 Toxicology Serum Alcohol (<10 MG/DL) 255.0 Vital Signs Date Time Temp Pulse Resp B/P B/P Pulse O2 O2 Flow FiO2 Mean Ox Delivery Rate 09/08 0744 97.5 67 100/62 09/08 0743 97.5 67 100/62 09/07 2336 62 86/52 09/07 2208 62 14 86/54 09/07 1959 97.8 70 104/63 09/07 1955 97.8 70 104/63 09/07 1653 69 105/63 09/07 1603 69 105/63 09/07 1402 98.7 67 114/66 09/07 1204 98.7 89 18 115/61 09/07 1200 98.7 86 18 / 100 Room Air MSE General appearance: good hygiene and grooming; Attitude: cooperative; Eye contact: appropriate; Movement: no psychomotor agitation or slowing; Speech: nl fluency, nl rate/rhythm, nl volume, nl prosody; Mood: "fine" Affect: very irritable, flat, appropriate, constricted, non-labile, congruent; Thought process: linear and goal-directed; Thought content: denied SI or HI, no paranoid ideation; Perception: denied hallucinations- auditory, visual, does not appear to be responding to internal stimuli; I/J: limited A/P: Pt with hx of MDD with marked impulsivity and irritability as well as AUD with continued sx. -Pt does not want gabapentin - Continue hydroxyzine - Start trileptal 150mg BID - Recheck chemistry - Start buspar 7.5mg BID -Encourage integration into the milieu
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
[2017-09-09] VITALS (7 sets, daily range): BP systolic 100–120; BP diastolic 63–67
--- NOTE | 2017-09-09 12:12 | CP SOUTH PROGRESS NOTE PSYCH ---
Psych (Inpt) Progress Note Progress Note Include the following elements, when applicable: Involvement in the active treatment of the patient with behavioral observations of the patient and the patient's response to the treatment. Review of the ongoing treatment process in the context of the treatment plan. Indication of how multi-disciplinary staff members are carrying out the treatment plan. Plans for future interventions and recommendations for revision of the treatment plan. Liaison with other physicians/providers. Progress Note: Pt notes that slept well overnight. Visited by a close friend and found that to be supportive. Her plan is to stay with him after discharge for a short period of time. She notes constipation. Usually takes dulcolax. Denies SI or HI Current Medications Sig/Nestor Start time Last Medication Dose Route Stop Time Status Admin Acetaminophen 650 MG Q6P PRN 09/07 1215 AC 09/07 PO 1441 Al Hydroxide/Mg 30 ML Q4-6 PRN PRN 09/07 1215 AC Hydroxide PO Bacitracin 1 PEGGY BID 09/07 1545 AC 09/09 TOP 0909 Benztropine Mesylate 1 MG Q6P PRN 09/07 1215 AC PO Benztropine Mesylate 1 MG Q6P PRN 09/07 1215 AC IM Buspirone HCl 7.5 MG BID 09/08 2200 AC 09/09 PO 0907 Folic Acid 1 MG DAILY 09/07 1211 DC 09/09 PO 09/09 1001 0907 Haloperidol 5 MG Q6P PRN 09/07 1215 AC PO Haloperidol 5 MG Q6P PRN 09/07 1215 AC IM Hydroxyzine HCl 50 MG Q6P PRN 09/07 1815 AC 09/09 PO 0632 Ibuprofen 600 MG 4 TIMES/DAY PRN 09/07 1545 AC 09/09 PO 0633 Lorazepam 1 MG .STK-MED ONE 09/08 1607 DC PO 09/08 1608 Lorazepam 1.5 MG TID 09/07 1600 AC 09/09 PO 0907 Lorazepam 2 MG Q2P PRN 09/07 1215 AC PO Lorazepam 1 MG Q2P PRN 09/07 1215 AC PO Lorazepam 2 MG Q6P PRN 09/07 1215 AC IM Magnesium Hydroxide 30 ML .STK-MED ONE 09/08 2152 DC PO 09/08 2153 Magnesium Hydroxide 30 ML AT BEDTIME PRN 09/07 1215 AC 09/08 PO 2152 Multivitamins 1 TAB DAILY 09/07 1211 AC 09/09 PO 0907 Ondansetron HCl 4 MG Q6P PRN 09/08 0711 AC 09/09 PO 0632 Oxcarbazepine 150 MG BID 09/08 1112 AC 09/09 PO 0907 Thiamine HCl 100 MG DAILY 09/07 1211 DC 09/09 PO 09/09 1001 0907 Trazodone HCl 50 MG AT BEDTIME NEED.. 09/07 1215 AC PO Laboratory Tests 09/09 09/06 0625 1815 Chemistry Sodium (137 - 145 mmol/L) 141 Potassium (3.5 - 5.1 mmol/L) 4.5 Chloride (98 - 107 mmol/L) 101 Carbon Dioxide (22 - 30 mmol/L) 30 Anion Gap (5 - 16) 10 BUN (7 - 17 mg/dL) 11 Creatinine (0.5 - 1.0 mg/dL) 0.6 Estimated GFR (>60 ml/min) > 60 BUN/Creatinine Ratio (7 - 25 %) 18.3 Toxicology Urine Opiates Screen (>2000 NG/ML) < 100.00 Methadone Screen (>300 NG/ML) < 40 Barbiturate Screen (>200 NG/ML) < 60 Ur Phencyclidine Scrn (>25 NG/ML) < 6.00 Amphetamines Screen (>1000 NG/ML) < 100 U Benzodiazepines Scrn (>200 NG/ML) > 800 H Urine Cocaine Screen (>300 NG/ML) < 50 Urine Cannabis Screen (>50 NG/ML) < 5.00 Urines Urine Color (YEL,AMB,STR) YEL Urine Clarity (CLEAR) HAZY H Urine pH (5.0 - 8.0) 6.0 Ur Specific [place] (1.001 - 1.035) 1.020 Urine Protein (NEG,<30 MG/DL) 30 H Urine Ketones (NEG) TRACE H Urine Nitrite (NEG) NEG Urine Bilirubin (NEG) NEG Urine Urobilinogen (0.1 - 1.0 EU/dl) 0.2 Ur Leukocyte Esterase (NEG) MOD H Ur Microscopic SEDIMENT EXAMINED Urine RBC (0 - 5 /HPF) 5-10 H Urine WBC (0 - 2 /HPF) > 75 H Ur Epithelial Cells (NONE,FEW) MANY H Urine Bacteria (NEG/NONE) FEW H Urine Hemoglobin (NEG) TRACE-INTACT Urine Glucose (N MG/DL) NEG Urine Test NEGATIVE 09/06 1718 Chemistry Sodium (137 - 145 mmol/L) 149 H Potassium (3.5 - 5.1 mmol/L) 4.5 Chloride (98 - 107 mmol/L) 104 Carbon Dioxide (22 - 30 mmol/L) 28 Anion Gap (5 - 16) 17 H BUN (7 - 17 mg/dL) 13 Creatinine (0.5 - 1.0 mg/dL) 0.6 Estimated GFR (>60 ml/min) > 60 BUN/Creatinine Ratio (7 - 25 %) 21.7 Glucose (65 - 99 mg/dL) 81 Calcium (8.4 - 10.2 mg/dL) 9.2 Total Bilirubin (0.2 - 1.3 mg/dL) 0.5 AST (14 - 36 U/L) 59 H ALT (9 - 52 U/L) 35 Alkaline Phosphatase (<127 U/L) 74 Total Protein (6.3 - 8.2 g/dL) 7.8 Albumin (3.5 - 5.0 g/dL) 5.1 H Globulin (1.9 - 4.2 gm/dL) 2.7 Albumin/Globulin Ratio (1.1 - 2.2 %) 1.9 TSH &T3 &Free T4 Intrp (0.270 - 4.20 uIU/mL) 0.337 Hematology CBC w Diff NO MAN DIFF REQ WBC (4.8 - 10.8 /CUMM) 5.5 RBC (4.20 - 5.40 /CUMM) 4.25 Hgb (12.0 - 16.0 G/DL) 12.5 Hct (37 - 47 %) 37.7 MCV (81.0 - 99.0 FL) 88.5 MCH (27.0 - 31.0 PG) 29.4 MCHC (33.0 - 37.0 G/DL) 33.2 RDW (11.5 - 14.5 %) 14.3 Plt Count (130 - 400 /CUMM) 222 MPV (7.4 - 10.4 FL) 7.5 Gran % (42.2 - 75.2 %) 56.5 Lymphocytes % (20.5 - 51.1 %) 38.9 Monocytes % (1.7 - 9.3 %) 3.0 Eosinophils % (0 - 5 %) 0.2 Basophils % (0.0 - 2.0 %) 1.4 Absolute Granulocytes (1.4 - 6.5 /CUMM) 3.1 Absolute Lymphocytes (1.2 - 3.4 /CUMM) 2.1 Absolute Monocytes (0.10 - 0.60 /CUMM) 0.2 Absolute Eosinophils (0.0 - 0.7 /CUMM) 0 Absolute Basophils (0.0 - 0.2 /CUMM) 0.1 Toxicology Serum Alcohol (<10 MG/DL) 255.0 Vital Signs Date Time Temp Pulse Resp B/P B/P Pulse O2 O2 Flow FiO2 Mean Ox Delivery Rate 09/09 1205 79 10809/09 1205 79 10809/09 0834 98.2 83 09/09 0733 98.2 83 09/08 1909 97.3 73 127/71 09/08 1907 97.3 73 127/71 09/08 1622 73 130/72 09/08 1622 73 130/72 09/08 1434 71 106/57 MSE General appearance: good hygiene and grooming; Attitude: cooperative; Eye contact: appropriate; Movement: no psychomotor agitation or slowing; Speech: nl fluency, nl rate/rhythm, nl volume, nl prosody; Mood: "fine" Affect: very irritable, flat, appropriate, constricted, non-labile, congruent; Thought process: linear and goal-directed; Thought content: denied SI or HI, no paranoid ideation; Perception: denied hallucinations- auditory, visual, does not appear to be responding to internal stimuli; I/J: limited A/P: Pt with hx of MDD with marked impulsivity and irritability as well as AUD with continued sx. - Added senna and colace for constipation - Rechecked chemistry, sodium normalized - Continue current medication regimen - Encourage integration into the milieu
[2017-09-10 07:55] VITALS: BP 117/75
[2017-09-10 08:35] VITALS: BP 117/75
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
[2017-09-10 12:34] VITALS: BP 130/78
[2017-09-10] MEDS ORDERED: TRAZODONE HCL50 M1 PO (12:35)
[2017-09-10] MEDS ORDERED: ATIVAN0.5 M1 PO (12:35)
[2017-09-10] MEDS ORDERED: TRILEPTAL150 M1 PO (12:35)
[2017-09-10] MEDS ORDERED: BUSPIRONE HCL10 M1 PO (12:35)
[2017-09-10 12:36] VITALS: BP 130/78
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
--- NOTE | 2017-09-10 14:00 | SOCIAL WORKER PROG NOTE PSYCH ---
Social Work Progress Note Faxed Referral(s) Referred To: [facility] Transition of Care Documents sent: Health Summary Faxed to: [facility] Fax #: [phone] Faxed by: Anila Steen Date faxed: 09/10/17 Time Faxed: [phone]
== END 2017-09-10 13:13 | DRG 753 ==
LOC: ERH 16:02 → ERHI 09-07 12:06 → CP SOUTH 09-07 12:06 → ENTRNSPT 09-07 12:25 → EDTRNSPT 09-07 12:34 → EDTRNSPTSTS 09-07 12:34 → CP SOUTH 09-07 12:50 → CMPTRNSPT 09-07 12:59 → CP SOUTH 09-07 16:58 → ENRESERV 09-07 23:59 → CP SOUTH 09-10 13:13
PROVIDERS: Physician Assistant
DX: F31.9 Bipolar disorder, unspecified (principal); Z72.89 Other problems related to lifestyle; F60.89 Other specific personality disorders
CPT/HCPCS: 87184; 36415; 73110-LT; 73130-RT; 80307; 81001; 81025; 82436; 87086; 87147; 90832; G0480; J0515; J1630; J1885; J2405; J2550; J3101; J3490

== ENCOUNTER 2017-11-07 11:17 | Emergency (ER) | payer OTHER ==
[~2017-11-07] VITALS: Ht 172.7 cm; Wt 59.4 kg
[~2017-11-07 11:17] MED LIST changes: +ATIVAN0.5 M1 PO; +BUSPIRONE HCL10 M1 PO; +KEFLEX500 M1 PO; +NAPROSYN500 M1 PO; +TRAZODONE HCL50 M1 PO; +TRILEPTAL150 M1 PO
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
[2017-11-07] MEDS ORDERED: KLONOPIN0.5 M1 PO (12:02)
== END 2017-11-07 13:36 ==
LOC: ERH 11:17
DX: F41.9 Anxiety disorder, unspecified (principal)
CPT/HCPCS: 80307; 81025

== ENCOUNTER 2017-11-22 01:18 | Emergency (ER) | payer OTHER ==
[~2017-11-22] VITALS: Ht 172.7 cm; Wt 59.0 kg
[~2017-11-22 01:18] MED LIST changes: +KLONOPIN0.5 M1 PO
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
[2017-11-22 01:51] LABS: ABSOLUTE BASOPHIL COUNT 0 /CUMM (0.0-0.2); BASOPHIL % 0 % (0.0-2.0); MEAN PLATELET VOLUME 6.2 FL (7.4-10.4)
[2017-11-22 01:58] LABS: ABSOLUTE EOSINOPHIL COUNT 0 /CUMM (0.0-0.7); ABSOLUTE GRANULOCYTE CT 4.6 /CUMM (1.4-6.5); ABSOLUTE LYMPH COUNT 0.7 /CUMM (1.2-3.4); ABSOLUTE MONOCYTE COUNT 0.4 /CUMM (0.10-0.60); EOSINOPHIL % 0.2 % (0-5); GRANULOCYTE % 80.4 % (42.2-75.2); HEMATOCRIT 31.9 % (37-47); MEAN CORPUSCULAR HGB 28.5 PG (27.0-31.0); MEAN CORPUSCULAR HGB CONC 33.1 G/DL (33.0-37.0); MEAN CORPUSCULAR VOLUME 86.2 FL (81.0-99.0); PLATELET COUNT 111 /CUMM (130-400); RBC DISTRIBUTION WIDTH 17.4 % (11.5-14.5); WHITE BLOOD CELL COUNT 5.8 /CUMM (4.8-10.8)
[2017-11-22 02:33] VITALS: BP 107/72
--- NOTE | 2017-11-22 03:03 | CT SCAN REPORT ---
EXAMINATION: NONCONTRAST HEAD CT NONCONTRAST MAXILLOFACIAL CT NONCONTRAST CERVICAL SPINE CT INDICATION INFORMATION: Trauma. COMPARISON: MRI from 10/10/2017. TECHNIQUE: Separate noncontrast CT examinations of the head, maxillofacial bones, and cervical spine were performed. Coronal and sagittal images were created for each examination at the technologist workstation. DLP: 1616 mGy-cm FINDINGS: Head: Trace subdural hematoma is noted along the falx. This measures 0.2 cm in thickness as seen on series 6 image 170. There is subtle hyperattenuation along the region of the left sylvian fissure, series 2 image 32 which could represent trace subarachnoid hemorrhage or cortical hemorrhage. Bernard-white differentiation is maintained without evidence of acute territorial infarction. Ventricles are of normal size without evidence of hydrocephalus. No mass effect or midline shift. The mastoid air cells are well aerated. Prominent soft tissue swelling with subgaleal hematoma overlies the left occipital bone. No acute calvarial fractures are seen. Maxillofacial: No acute maxillofacial fractures are seen. The pterygoid plates are intact. The lamina papyracea are intact. The zygomatic arches are intact. The orbital rims are intact. Mucous retention cyst in the left maxillary sinus. The remaining paranasal sinuses are well aerated. The uncinate process is normal bilaterally. The infundibula and middle meati are patent. The nasal septum is midline. The mandibular heads are well-seated in the condylar fossa. The orbits demonstrate a normal appearance bilaterally. The globes are intact, and there are no suspicious findings to suggest retrobulbar hemorrhage. Cervical spine: Reversal of the normal cervical lordosis, likely positional. There is otherwise anatomic alignment of the vertebral bodies and posterior elements. The atlantoaxial and atlantooccipital articulations are intact. Vertebral body heights and intervertebral disc spaces are maintained. No evidence of acute fracture. No prevertebral soft tissue swelling. Visualized portions of the lung apices are unremarkable. Azygos fissure noted. The thyroid gland is unremarkable. IMPRESSION: 1. Trace subdural hematoma along the falx. Possible trace subarachnoid hemorrhage versus cortical hemorrhage along the left sylvian fissure. 2. Prominent left soft tissue hematoma overlying the occipital bone without underlying calvarial fracture. 3. No acute maxillofacial fracture. 4. No acute fracture or malalignment of the cervical spine. This critical result was discussed with Jovan Ellis MD by telephone at 11/22/2017 2:58 AM and it was ascertained that the content and urgency of the report was understood at the time of direct communication.
[2017-11-26] MEDS ORDERED: KEPPRA500 M1 PO (11:28)
[2017-11-26] MEDS ORDERED: KLONOPIN0.5 M1 PO (11:28)
== END 2017-11-22 03:38 | disposition short-term general hospital (02) ==
LOC: ERH 01:18
PROVIDERS: Emergency Medicine
DX: I62.00 Nontraumatic subdural hemorrhage, unspecified (principal); I60.9 Nontraumatic subarachnoid hemorrhage, unspecified; F10.129 Alcohol abuse with intoxication, unspecified; S00.83XA Contusion of other part of head, initial encounter; X58.XXXA Exposure to other specified factors, initial encounter; Y93.9 Activity, unspecified; Y92.009 Unspecified place in unspecified non-institutional (private) residence as the place of occurrence of the external cause
CPT/HCPCS: 99291; G0480

== ENCOUNTER 2017-12-14 19:17 | Inpatient (IN) | payer OTHER ==
[~2017-12-14] VITALS: Ht 172.7 cm; Wt 60.8 kg
[~2017-12-14 19:17] MED LIST changes: +KEPPRA500 M1 PO
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
[2017-12-14 19:56] LABS: ABSOLUTE BASOPHIL COUNT 0.1 /CUMM (0.0-0.2); ABSOLUTE EOSINOPHIL COUNT 0 /CUMM (0.0-0.7); ABSOLUTE GRANULOCYTE CT 5.6 /CUMM (1.4-6.5); ABSOLUTE LYMPH COUNT 2.1 /CUMM (1.2-3.4); ABSOLUTE MONOCYTE COUNT 0.3 /CUMM (0.10-0.60); BASOPHIL % 0.7 % (0.0-2.0); EOSINOPHIL % 0.1 % (0-5); GRANULOCYTE % 69.4 % (42.2-75.2); HEMATOCRIT 39.8 % (37-47); MEAN CORPUSCULAR HGB 26.8 PG (27.0-31.0); MEAN CORPUSCULAR HGB CONC 31.6 G/DL (33.0-37.0); MEAN CORPUSCULAR VOLUME 84.8 FL (81.0-99.0); MEAN PLATELET VOLUME 6.4 FL (7.4-10.4); PLATELET COUNT 211 /CUMM (130-400); RBC DISTRIBUTION WIDTH 17.4 % (11.5-14.5); RED BLOOD CELL CT 4.69 /CUMM (4.20-5.40); WHITE BLOOD CELL COUNT 8.1 /CUMM (4.8-10.8)
--- NOTE | 2017-12-14 22:19 | CT SCAN REPORT ---
EXAMINATIONS: CT HEAD WITHOUT CONTRAST AND CT CERVICAL SPINE WITHOUT CONTRAST CLINICAL INFORMATION: Seizure. Fall. Trauma. COMPARISON: 11/22/2017. TECHNIQUE: Contiguous helical images of the brain were obtained without IV contrast. Contiguous helical images of the cervical spine were obtained without IV contrast. Multiplanar reconstructions were performed. DLP: 1276 mGy-cm. FINDINGS: There are no pathologic extra-axial fluid collections. The lateral, third, fourth ventricles are nondilated and concordant with the appearance of the sulci. There is no evidence for acute intraparenchymal hemorrhage or infarct. There is neither mass nor mass effect. There is no shift of midline structures. The paranasal sinuses and mastoid air cells are clear. There are no osseous lesions. The cervical vertebra are in normal alignment. Disc heights and vertebral heights are well-preserved. There are no fractures. There is no prevertebral soft tissue swelling. There is no cervical lymphadenopathy. The visualized lung apices are clear. IMPRESSION: No evidence for acute intracranial injury. No evidence for acute injury to the cervical spine.
[2017-12-15] VITALS (7 sets, daily range): BP systolic 102–118; BP diastolic 60–80
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
--- NOTE | 2017-12-15 03:59 | Admission Certification ---
Admission Certification Certification Statement - As attending physician, I certify that at the time of - admission, based on clinical presentation, severity of - symptoms, need for further diagnostic testing and - therapeutic interventions, and risk of adverse outcomes - without in-hospital treatment, in my clinical assessment, - this patient requires an acute hospital stay for a minimum - of two nights or longer. I have also considered psychsocial - factors such as support system, advanced age, financial - issues, cognitive issues, and failed out-patient treatments, - past re-admission history, safety of patient, and lack of - compliance as applicable. Specific rationale supporting this admission is: Alcohol related seizure, alcohol withdrawal
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
[2017-12-16] VITALS (7 sets, daily range): BP systolic 100–126; BP diastolic 60–90
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
--- NOTE | 2017-12-16 16:33 | Cons- Nephrology ---
General Information and HPI Consulting Request Date of Consult: 12/16/17 Requested By: Dinesh Jacinto MD Reason for Consult: Proteinuria Source of Information: patient, old records Exam Limitations: no limitations History of Present Illness: The patient is a 32-year-old woman with a past medical history most significant for alcoholism with many admissions for all withdrawal and imaging evidence of hepatic steatosis, ?hyperthyroidism though not on medication, stillbirth (no known pre-eclampsia - no clear anatomic issues or cytologic issues based on path ) who presents for ETOH withdrawal. Nephrology consulted for proteinuria. In reviewed the medical records, the patient has normal renal function with a SCr of 0.5. She has had at least 100mg/dl protein on her UA's dating back to December 2013. It has never been quantified on a spot ratio. Serum albumin has been normal up until today (was even 5.3 two days ago). Imaging only done of R kidney (limited Liver US) - 12.1cm. Pt denies joint pains, rash, dry eyes/ mouth. No famhx of kidney disease but does note that her mother has Rheumatoid Arthritis. Denies foamy urine, gross hematuria. No edema. Not on meds. Very rare NSAID use. Allergies/Medications Allergies: Coded Allergies: No Known Allergies (08/01/17) Home Med List: Levetiracetam (Keppra) 500 MG TABLET 1 TAB PO BID SEIZURES Current Medications: Current Medications Sig/Nestor Start time Last Medication Dose Route Stop Time Status Admin Baclofen 10 MG ONCE 12/15 1845 DC 12/15 PO 12/16 1999 194 Enoxaparin Sodium 40 MG DAILY 12/15 0900 AC 12/16 SC 0931 Folic Acid 1 MG DAILY 12/15 0900 AC 12/16 PO 0931 Ibuprofen 600 MG Q6 PRN 12/15 0015 AC 12/16 PO 0038 Lorazepam 1.5 MG Q6 12/16 1800 AC PO Lorazepam 1.5 MG ONCE ONE 12/16 1245 DC 12/16 PO 12/16 1246 1238 Lorazepam 2 MG Q6 12/15 0600 DC 12/16 PO 0542 Lorazepam 0 Q1P PRN 12/15 0015 AC 12/15 IV 2237 Magnesium Oxide 400 MG ONE ONE 12/16 1530 DC PO 12/16 1531 Magnesium Oxide 400 MG ONE ONE 12/16 1530 DC PO 12/16 1531 Multivitamins 1 TAB DAILY 12/15 0900 AC 12/16 PO 0931 Ondansetron HCl 4 MG .STK-MED ONE 12/16 0544 DC IM 12/16 0545 Ondansetron HCl 4 MG Q8P PRN 12/15 0015 AC 12/16 IV 1125 Oxcarbazepine 150 MG BID 12/15 2100 AC 12/16 PO 0931 Potassium Chloride 40 MEQ ONCE ONE 12/16 1245 DC 12/16 PO 12/16 1246 1329 Promethazine HCl 12.5 MG ONCE ONE 12/16 1615 DC IV 12/16 1616 Thiamine HCl 100 MG DAILY 12/15 0900 AC 12/16 PO 0931 Review of Systems Review of Systems: Complete 14 point ROS neg except as above with the addition that she feels "jittery" and nauseated Past History Travel History Traveled to [place] past 21 day No Medical History Blood Transfusion Hx: No Neurological: migraine, SEIZURE WITHDRAWL HEAD CONCUSSION EENT: NONE Cardiovascular: NONE Respiratory: NONE Gastrointestinal: pancreatitis Hepatic: ST 1 LIVER CIRRHOSIS Renal: NONE Musculoskeletal: FRACTURE R ARM Psychiatric: alcohol dependence, anxiety Endocrine: hyperthyroidism Blood Disorders: anemia Cancer(s): NONE 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 Home Who Do You Live With? spouse Services at Home: None Primary Language: Beninese Smoking Status: Current Everyday Smoker ETOH Use: alcoholic Illicit Drug Use: denies illicit drug use Living Will? unknown Power of Machine Technician/HCP? unknown Exam & Diagnostic Data Vital Signs and I&O Vital Signs Date Time Temp Pulse Resp B/P B/P Pulse O2 O2 Flow FiO2 Mean Ox Delivery Rate 12/16 1445 98.3 86 20 118/70 99 Room Air 12/16 1200 73 18 110/80 12/16 0904 98.5 63 18 110/64 99 Room Air 12/16 0800 98.5 64 20 110/68 12/16 0354 98.3 58 20 100/67 98 12/16 0013 98.8 75 20 110/90 96 12/15 2206 99.7 81 18 108/80 98 Room Air Intake & Output 12/16 0400 12/15 04012/14 0400 Intake Total 583 974 4908 0 Output Total Balance 860 722 5023 0 Intake, IV 30 1050 Intake, Oral 695 143 2651 0 Patient 135 lb 126 lb 133 lb Weight Weight Bed scale Bed scale Measurement Method Physical Exam: Gen - OK appearing Head - NCAT Eyes - anicteric sclera, EOMI Neck - supple, no LAD CV - RRR, no m/r/g Chest - clear, no w/r/r Abd - soft, NTND Upper ext - warm, no edema Lower ext - warm, no edema Skin - heavily tattooed; no rash or jaundice Neuro - AOX3, grossly nonfocal Results Pertinent Lab Results: Laboratory Tests 12/16 1947 Chemistry Sodium (137 - 145 mmol/L) 133 L Potassium (3.5 - 5.1 mmol/L) 3.2 L Chloride (98 - 107 mmol/L) 96 L Carbon Dioxide (22 - 30 mmol/L) 27 Anion Gap (5 - 16) 10 BUN (7 - 17 mg/dL) 12 Creatinine (0.5 - 1.0 mg/dL) 0.5 Estimated GFR (>60 ml/min) > 60 BUN/Creatinine Ratio (7 - 25 %) 24.0 Magnesium (1.6 - 2.3 mg/dL) 1.4 L Total Bilirubin (0.2 - 1.3 mg/dL) 1.1 Direct Bilirubin (< 0.4 mg/dL) 0.2 AST (14 - 36 U/L) 104 H ALT (9 - 52 U/L) 70 H Alkaline Phosphatase (<127 U/L) 54 Total Protein (6.3 - 8.2 g/dL) 6.0 L Albumin (3.5 - 5.0 g/dL) 3.3 L Toxicology Urine Opiates Screen (>2000 NG/ML) < 100 Methadone Screen (>300 NG/ML) < 40 Barbiturate Screen (>200 NG/ML) < 60 Ur Phencyclidine Scrn (>25 NG/ML) < 6.00 Amphetamines Screen (>1000 NG/ML) < 100 U Benzodiazepines Scrn (>200 NG/ML) 717 H Urine Cocaine Screen (>300 NG/ML) < 50 Urine Cannabis Screen (>50 NG/ML) < 5.00 Urines Urine Color (YEL,AMB,STR) YEL Urine Clarity (CLEAR) CLEAR Urine pH (5.0 - 8.0) 6.5 Ur Specific [place] (1.001 - 1.035) 1.025 Urine Protein (NEG,<30 MG/DL) >=300 H Urine Ketones (NEG) NEG Urine Nitrite (NEG) NEG Urine Bilirubin (NEG) NEG Urine Urobilinogen (0.1 - 1.0 EU/dl) 0.2 Ur Leukocyte Esterase (NEG) NEG Ur Microscopic SEDIMENT EXAMINED Urine RBC (0 - 5 /HPF) 5-10 H Urine WBC (0 - 2 /HPF) 10-15 H Ur Epithelial Cells (NONE,FEW) FEW Urine Bacteria (NEG/NONE) PACKD H Urine Mucus (FEW,NONE) FEW Urine Hemoglobin (NEG) MOD H Urine Glucose (N MG/DL) NEG Urine Test NEGATIVE 12/14 1944 Chemistry Sodium (137 - 145 mmol/L) 147 H Potassium (3.5 - 5.1 mmol/L) 3.9 Chloride (98 - 107 mmol/L) 101 Carbon Dioxide (22 - 30 mmol/L) 27 Anion Gap (5 - 16) 19 H BUN (7 - 17 mg/dL) 10 Creatinine (0.5 - 1.0 mg/dL) 0.5 Estimated GFR (>60 ml/min) > 60 BUN/Creatinine Ratio (7 - 25 %) 20.0 Glucose (65 - 99 mg/dL) 106 H Calcium (8.4 - 10.2 mg/dL) 8.5 Phosphorus (2.5 - 4.5 mg/dL) 3.6 Magnesium (1.6 - 2.3 mg/dL) 1.6 Total Bilirubin (0.2 - 1.3 mg/dL) 0.5 AST (14 - 36 U/L) 223 H ALT (9 - 52 U/L) 113 H Alkaline Phosphatase (<127 U/L) 90 Troponin I (< 0.11 ng/ml) 0.03 Total Protein (6.3 - 8.2 g/dL) 8.5 H Albumin (3.5 - 5.0 g/dL) 5.3 H Globulin (1.9 - 4.2 gm/dL) 3.2 Albumin/Globulin Ratio (1.1 - 2.2 %) 1.7 Amylase (30 - 110 U/L) 65 Lipase (23 - 300 U/L) 466 H TSH (0.270 - 4.200 uIU/mL) 0.238 L Thyroxine (T4) (4.5 - 10.9 ug/dL) 8.0 Prolactin (3.0 - 18.6 ng/mL) 27.8 H Total Beta HCG (NEGATIVE) NEGATIVE Hematology CBC w Diff NO MAN DIFF REQ WBC (4.8 - 10.8 /CUMM) 8.1 RBC (4.20 - 5.40 /CUMM) 4.69 Hgb (12.0 - 16.0 G/DL) 12.6 Hct (37 - 47 %) 39.8 MCV (81.0 - 99.0 FL) 84.8 MCH (27.0 - 31.0 PG) 26.8 L MCHC (33.0 - 37.0 G/DL) 31.6 L RDW (11.5 - 14.5 %) 17.4 H Plt Count (130 - 400 /CUMM) 211 MPV (7.4 - 10.4 FL) 6.4 L Gran % (42.2 - 75.2 %) 69.4 Lymphocytes % (20.5 - 51.1 %) 26.2 Monocytes % (1.7 - 9.3 %) 3.6 Eosinophils % (0 - 5 %) 0.1 Basophils % (0.0 - 2.0 %) 0.7 Absolute Granulocytes (1.4 - 6.5 /CUMM) 5.6 Absolute Lymphocytes (1.2 - 3.4 /CUMM) 2.1 Absolute Monocytes (0.10 - 0.60 /CUMM) 0.3 Absolute Eosinophils (0.0 - 0.7 /CUMM) 0 Absolute Basophils (0.0 - 0.2 /CUMM) 0.1 Toxicology Serum Alcohol (<10 MG/DL) 442.0 Imaging/Other Studies: Abd US reviewed Assessment/Plan Assessment/Recommendations Assessment: Proteinuria - Persistent since 2013 with some RBC's seen on UA as well. Has had some serologies sent in past including Hepatitis and HIV which were negative. 24hr urine collection pending. Should send complete serologic work-up and perform imaging of both kidneys. She is not clinically nephrotic. Most likely to be IgA nephropathy. No need for kidney biopsy at this time but may consider in the future depending on results of above tests. Recommendations: -24hr collection for protein -Would also send spot UProt, UCr -CAITY, dsDNA, C3, C4, Hep B/C panel, HIV, MPO and PR3 ANCA -SPEP, Niotaze lambda free light chains -Renal US -Hold off on starting RAAS inhibition at this time Please call [phone] with ?'s
[2017-12-17 01:52] VITALS: BP 126/74
[2017-12-17 06:18] VITALS: BP 122/64
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
--- NOTE | 2017-12-17 12:20 | ULTRASOUND REPORT ---
EXAMINATION: US RETROPERITONEAL COMPLETE (RENAL) CLINICAL INFORMATION: Proteinuria. COMPARISON: CT 05/19/2008 TECHNIQUE: Real-time imaging of the kidneys and bladder. FINDINGS: RIGHT KIDNEY: 12.2 x 3.8 x 5.0 cm (SAG x AP x TRV). The kidney is normal in size, contour, and echogenicity. Renal cortical thickness is normal. No calculi or focal parenchymal lesions. No hydronephrosis. LEFT KIDNEY: 11.8 x 4.2 x 5.0 cm (SAG x AP x TRV). The kidney is normal in size, contour, and echogenicity. Renal cortical thickness is normal. No calculi or focal parenchymal lesions. No hydronephrosis. BLADDER: Partially distended. Bilateral ureteral jets are demonstrated. Prevoid bladder volume is 83 mL. Postvoid bladder volume is too small to measure. Note is made of few tiny air bubbles within the bladder comment possibly within the bladder wall itself. IMPRESSION: 1. Few tiny bubbles of gas are noted within the bladder, possibly within the bladder wall. Recommend correlation with recent instrumentation. 2. Unremarkable ultrasound of the kidneys.
[2017-12-17 14:02] VITALS: BP 120/70
[2017-12-17 23:14] VITALS: BP 100/50
[2017-12-18 06:20] VITALS: BP 104/66
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
[2017-12-18] MEDS ORDERED: FOLIC ACID1 M1 PO ×2 (08:06→15:53)
[2017-12-18] MEDS ORDERED: ATIVAN0.5 M1 PO ×3 (08:06→15:58)
[2017-12-18] MEDS ORDERED: ZOFRAN8 M1 PO ×2 (08:06→15:53)
[2017-12-18] MEDS ORDERED: ONE DAILY MULT1 EAC2 PO ×2 (08:06→15:53)
[2017-12-18] MEDS ORDERED: VITAMIN B-1100 MG PO ×2 (08:06→15:53)
--- NOTE | 2017-12-18 08:11 | Patient Discharge Instructions ---
Discharge Instructions General Discharge Information You were seen/treated for: alcohol withdrawal Special Instructions: 1. please follow up with your pcp in one week, discuss thyroid level workup 2. please follow up with outpatient psychiatry, either [facility] or other 3. please take the final ativan doses as directed 4. please follow up with stomach doctor outpatient in one week for GI bleed 5. please follow up with kidney doctor for continued workup of protein in the urine Diet Continue normal diet: Yes Activity Full Activity/No Limits: Yes Acute Coronary Syndrome Inclusion Criteria At DC or during hospital stay patient has or had the following: ACS DIAGNOSIS No Discharge Core Measures Meds if any: Prescribed or Continued at Discharge Meds if any: NOT Prescribed or Continued at Discharge Congestive Heart Failure Inclusion Criteria At DC or during hospital stay patient has or had the following: CHF DIAGNOSIS No Discharge Core Measures Meds if any: Prescribed or Continued at Discharge Meds if any: NOT Prescribed or Continued at Discharge Cerebrovascular accident Inclusion Criteria At DC or during hospital stay patient has or had the following: CVA/TIA Diagnosis No Discharge Core Measures Meds if any: Prescribed or Continued at Discharge Meds if any: NOT Prescribed or Continued at Discharge Venous thromboembolism Inclusion Criteria VTE Diagnosis No VTE Type NONE VTE Confirmed by (Test) NONE Discharge Core Measures - Per Current guidelines, there needs to be overlap - treatment for the first 5 days of Warfarin therapy. - If discharged on Warfarin prior to 5 days of - overlap therapy, the patient will need to be - assessed for post discharge needs including - *Post discharge parental anticoagulation - *Warfarin and/or parental anticoagulation education - *Follow up date to check INR post discharge At least 5 days overlap therapy as Inpatient No Meds if any: Prescribed or Continued at Discharge Note: Overlap Therapy is Warfarin and Anticoagulant Meds if any: NOT Prescribed or Continued at Discharge
--- NOTE | 2017-12-18 11:49 | PN- Att Addend ---
Attending Addendum Attending Brief Note Patient seen and examined. Plan of care discussed with the medical team and the patient. Available lab work and radiology test reports were reviewed. Patient complains of nausea which is better with Phenergan. She probably had a darkish red stool yesterday. She also reports that about 5 days ago she had reddish stool as well. Patient has been able to tolerate diet. Denies any abdominal pain or chest pain no fever or chills. She has not noted any hallucinations. No tremors are noted. Exam: General: Patient awake alert oriented without any distress CVS: S1 plus S2 without any murmur or gallops Chest: Few scattered crepitation without any wheeze. There is no respiratory distress. Abdomen: Soft non-tender, bowel sound present, no guarding or rebound CORRECTIONS SPECIALIST: Awake alert oriented without any focal neuro deficit and follows commands appropriately Extremities: No edema; no clubbing or cyanosis noted Assessment * Alcohol abuse * Alcohol withdrawal seizures; other possibility includes recent subarachnoid hemorrhage as a cause of seizures * Alcohol detox * History of subarachnoid hemorrhage due to head trauma * Hypokalemia resolved * Suspected benzo abuse * Proteinuria currently being worked up * Suspected GI bleed Plan * Continue Phenergan when necessary for nausea * Reduce Ativan to 0.5 mg 2 times a day today * GI consult * Recheck CBC today * Continue Trileptal * Plan for discharge home tomorrow * No need to check chemistry labs tomorrow Current Medications Sig/Nestor Start time Last Medication Dose Route Stop Time Status Admin Enoxaparin Sodium 40 MG DAILY 12/15 09 AC 12/18 SC 0836 Folic Acid 1 MG DAILY 12/15 0900 AC 12/18 PO 0834 Ibuprofen 600 MG .STK-MED ONE 12/17 1703 DC PO 12/17 1704 Ibuprofen 600 MG Q6 PRN 12/15 0015 AC 12/18 PO 0834 Lorazepam 0.5 MG BID 12/18 0900 AC 12/18 PO 12/25 0859 0835 Lorazepam 0.5 MG TID 12/17 2100 DC 12/17 PO 12/24 1159 2155 Lorazepam 1 MG Q6 12/17 1200 DC 12/17 PO 1158 Lorazepam 0 Q1P PRN 12/15 0015 AC 12/17 IV 1750 Multivitamins 1 TAB DAILY 12/15 0900 AC 12/18 PO 0835 Ondansetron HCl 4 MG .STK-MED ONE 12/17 2152 DC IM 12/17 215 Ondansetron HCl 4 MG Q8P PRN 12/15 0015 AC 12/17 IV 215 Oxcarbazepine 150 MG BID 12/15 2100 AC 12/18 PO 0835 Patient Medication 1 ED ONE ONE 12/18 1000 DC Teaching ED 12/18 1001 Promethazine HCl 12.5 MG BID PRN 12/18 0815 AC 12/18 IV 0837 Promethazine HCl 12.5 MG ONCE ONE 12/17 1200 DC 12/17 IV 12/17 1201 1211 Thiamine HCl 100 MG DAILY 12/15 0900 AC 12/18 PO 0835 Laboratory Tests 12/18/17 0710: Anion Gap 10, Estimated GFR > 60, BUN/Creatinine Ratio 17.5, Magnesium 1.6 12/17/17 0913: ANCA Pending, Double Strand DNA Ab Pending, Ref Lab Test Result Pending, Ref Lab Test Result Pending 12/17/17 0705: Anion Gap 9, Estimated GFR > 60, BUN/Creatinine Ratio 18.0, Complement C3 Pending, Complement C4 Pending 12/17/17 0705: Prot Electrophoresis Pending, Total Protein (PEP) Pending, Albumin % (PEP) Pending, Dwkps-7-Psjkjdkrr Pending, Qxulx-9-Nbjkllhnn Pending, Sxue-1-Nngdhjut Pending, Paqi-2-Ievxbqta Pending, Gamma Globulins Pending, Abnorm Protein Band 1 Pending, Abnorm Protein Band 2 Pending, Abnorm Protein Band 3 Pending, CAITY Titer ND, Anti-Nuclear Antibody NEG 1:40 IFA ASSAY, Hep Bs Antigen NONREACTIVE, Hep Bs Antibody REACTIVE, Hep B Core IgM Ab Conf NONREACTIVE, Hepatitis C Antibody NONREACTIVE, HIV 1&2 Ab Western Blot NONREACTIVE 12/16/17 1758: Ur Random Creatinine 51.0, Urine Total Volume 1700 H, Ur Total Protein 24 Hr 1428.0 H 12/16/17 0720: Anion Gap 10, Estimated GFR > 60, BUN/Creatinine Ratio 24.0, Magnesium 1.4 L, Total Bilirubin 1.1, Direct Bilirubin 0.2, AST 104 H, ALT 70 H, Alkaline Phosphatase 54, Total Protein 6.0 L, Albumin 3.3 L Vital Signs Date Time Temp Pulse Resp B/P B/P Pulse O2 O2 Flow FiO2 Mean Ox Delivery Rate 12/18 0620 98.5 65 18 104/66 98 Room Air 12/17 2314 97.8 75 20 100/50 98 Room Air 12/17 1402 98.7 62 20 120/70 100 Intake & Output 12/18 1600 12/18 0800 12/18 0000 Intake Total 100 320 Output Total 400 Balance 100 -80 Intake, IV 20 Intake, Oral 100 300 Number 1 Bowel Movements Output, Urine 400 Renal ultrasound Few tiny bubbles of gas are noted within the bladder, possibly within the bladder wall. Recommend correlation with recent instrumentation. 2. Unremarkable ultrasound of the kidneys.
--- NOTE | 2017-12-18 12:36 | PN- Nephrology ---
Assessment/Plan Nephrology Assessment: 1. Proteinuria there is roughly 1400 mg per 24 hours. However, when asked, the patient is in the midst of her monthly period. Her period began on the . Given that scenario, I'm not certain of the significance of the 1400 mg. At the very least I would suggest ordering a protein to creatinine ratio after her monthly period has ended. In addition, the total creatinine is not recorded. The only way to gauge whether or not a urine is adequately collected is to obtain a urine for total creatinine. Without this there is no way to decide whether not this is an adequate collection. A woman of this patient's age ought to be generating 15-20 mg/kg of body weight per day of creatinine. Suggestion: 1. Please ask the lab to add on a total creatinine and creatinine clearance to do the 24-hour urine already collected. Without the total creatinine, it is impossible to say whether or not this particular collection was adequately collected. 2. Once the patient is away from her monthly period, would suggest obtaining a spot urine protein to creatinine ratio to see whether or not she does have significant proteinuria. Subjective Subjective: Patient feels well. No complaints offered. Eating her lunch. Objective Vital Signs and I&Os Vital Signs Date Time Temp Pulse Resp B/P B/P Pulse O2 O2 Flow FiO2 Mean Ox Delivery Rate 12/18 0620 98.5 65 18 104/66 98 Room Air 12/17 2314 97.8 75 20 100/50 98 Room Air 12/17 1402 98.7 62 20 120/70 100 Intake & Output 12/18 1600 12/18 0400 12/17 1600 12/17 0400 12/16 0400 Intake Total 100 320 760 450 550 170 Output Total 400 625 300 Balance 100 -80 135 150 550 170 Intake, IV 20 100 50 30 Intake, Oral 100 300 660 400 550 140 Number 1 0 Bowel Movements Output, Urine 400 625 300 Patient 134 lb 135 lb Weight Physical Exam General Appearance: well developed/nourished, no apparent distress, alert, awake , comfortable Head: atraumatic, normal appearance Ears, Nose, Throat: normal pharynx, normal ENT inspection, hearing grossly normal Neck: normal inspection, supple, full range of motion, trachea mid line Respiratory: normal breath sounds, chest non-tender Cardiovascular: regular rate/rhythm, edema Peripheral Pulses: 2+ tibialis posterior (R), 2+ dorsalis pedis (R), 2+ dorsalis pedis (L) Abdomen: normal bowel sounds, soft, non-tender Back: normal inspection, no vertebral tenderness Extremities: normal inspection, normal capillary refill Skin: intact, positive tattoos Lymphatic: no anterior cervical karen Current Medications: Current Medications Sig/Nestor Start time Last Medication Dose Route Stop Time Status Admin Enoxaparin Sodium 40 MG DAILY 12/15 0900 AC 12/18 SC 0836 Folic Acid 1 MG DAILY 12/15 0900 AC 12/18 PO 0834 Ibuprofen 600 MG .STK-MED ONE 12/17 1703 DC PO 12/17 1704 Ibuprofen 600 MG Q6 PRN 12/15 0015 AC 12/18 PO 0834 Lorazepam 0.5 MG BID 12/18 09 AC 12/18 PO 12/25 0859 0835 Lorazepam 0.5 MG TID 12/17 2100 DC 12/17 PO 12/24 1159 2155 Lorazepam 1 MG Q6 12/17 1200 DC 12/17 PO 1158 Lorazepam 0 Q1P PRN 12/15 0015 AC 12/17 IV 1750 Multivitamins 1 TAB DAILY 12/15 0900 AC 12/18 PO 0835 Ondansetron HCl 4 MG .STK-MED ONE 12/17 2153 DC IM 12/17 2154 Ondansetron HCl 4 MG Q8P PRN 12/15 0015 AC 12/17 IV 2155 Oxcarbazepine 150 MG BID 12/15 2100 AC 12/18 PO 0835 Patient Medication 1 ED ONE ONE 12/18 1000 DC Teaching ED 12/18 1001 Promethazine HCl 12.5 MG BID PRN 12/18 0815 AC 12/18 IV 0837 Thiamine HCl 100 MG DAILY 12/15 0900 AC 12/18 PO 0835 Results Pertinent Lab Results: Laboratory Tests 12/18 12/17 12/17 0710 0913 0705 Chemistry Sodium (137 - 145 mmol/L) 140 137 Potassium (3.5 - 5.1 mmol/L) 4.0 3.7 Chloride (98 - 107 mmol/L) 106 99 Carbon Dioxide (22 - 30 mmol/L) 24 28 Anion Gap (5 - 16) 10 9 BUN (7 - 17 mg/dL) 7 9 Creatinine (0.5 - 1.0 mg/dL) 0.4 L 0.5 Estimated GFR (>60 ml/min) > 60 > 60 BUN/Creatinine Ratio (7 - 25 %) 17.5 18.0 Magnesium (1.6 - 2.3 mg/dL) 1.6 Immunology ANCA Pending Double Strand DNA Ab Pending Complement C3 Pending Complement C4 Pending Miscellaneous Ref Lab Test Result Pending Ref Lab Test Result Pending 12/17 12/16 0705 1758 Chemistry Prot Electrophoresis Pending Total Protein (PEP) Pending Albumin % (PEP) Pending Vyzwj-8-Ilcmcklbn Pending Fzkix-4-Lfjcpohcb Pending Gfoz-6-Sudlivsp Pending Qiof-8-Ekofclqe Pending Gamma Globulins Pending Abnorm Protein Band 1 Pending Abnorm Protein Band 2 Pending Abnorm Protein Band 3 Pending Immunology CAITY Titer ND Anti-Nuclear Antibody (NEG,1:40) NEG 1:40 IFA ASSAY Serology Hep Bs Antigen (NONREACTIVE) NONREACTIVE Hep Bs Antibody (NONREACTIVE) REACTIVE Hep B Core IgM Ab Conf (NONREACTIVE) NONREACTIVE Hepatitis C Antibody (NONREACTIVE) NONREACTIVE HIV 1&2 Ab Western Blot (NONREACTIVE) NONREACTIVE Urines Ur Random Creatinine (mg/dL) 51.0 Urine Total Volume (600 - 1500 ML/24HR) 1700 H Ur Total Protein 24 Hr (42 - 255 mg/24HR) 1428.0 H 12/16 0720 Chemistry Sodium (137 - 145 mmol/L) 133 L Potassium (3.5 - 5.1 mmol/L) 3.2 L Chloride (98 - 107 mmol/L) 96 L Carbon Dioxide (22 - 30 mmol/L) 27 Anion Gap (5 - 16) 10 BUN (7 - 17 mg/dL) 12 Creatinine (0.5 - 1.0 mg/dL) 0.5 Estimated GFR (>60 ml/min) > 60 BUN/Creatinine Ratio (7 - 25 %) 24.0 Magnesium (1.6 - 2.3 mg/dL) 1.4 L Total Bilirubin (0.2 - 1.3 mg/dL) 1.1 Direct Bilirubin (< 0.4 mg/dL) 0.2 AST (14 - 36 U/L) 104 H ALT (9 - 52 U/L) 70 H Alkaline Phosphatase (<127 U/L) 54 Total Protein (6.3 - 8.2 g/dL) 6.0 L Albumin (3.5 - 5.0 g/dL) 3.3 L
[2017-12-18 13:57] VITALS: BP 100/70
[2017-12-18] MEDS ORDERED: TRILEPTAL150 M1 PO ×2 (14:14→15:53)
[2017-12-18 14:51] LABS: ABSOLUTE BASOPHIL COUNT 0 /CUMM (0.0-0.2); ABSOLUTE EOSINOPHIL COUNT 0.1 /CUMM (0.0-0.7); ABSOLUTE LYMPH COUNT 1.3 /CUMM (1.2-3.4); ABSOLUTE MONOCYTE COUNT 0.4 /CUMM (0.10-0.60); WHITE BLOOD CELL COUNT 4.4 /CUMM (4.8-10.8)
[2017-12-18] MEDS ORDERED: OMEPRAZOLE40 M1 PO ×2 (14:53→15:53)
[2017-12-18 14:55] LABS: ABSOLUTE GRANULOCYTE CT 2.7 /CUMM (1.4-6.5); BASOPHIL % 0.5 % (0.0-2.0); EOSINOPHIL % 1.3 % (0-5); GRANULOCYTE % 60.1 % (42.2-75.2); MEAN CORPUSCULAR HGB 28.1 PG (27.0-31.0); MEAN CORPUSCULAR VOLUME 85.1 FL (81.0-99.0); MEAN PLATELET VOLUME 7.3 FL (7.4-10.4); PLATELET COUNT 138 /CUMM (130-400); RBC DISTRIBUTION WIDTH 16.6 % (11.5-14.5); RED BLOOD CELL CT 3.79 /CUMM (4.20-5.40)
[2017-12-18 14:56] LABS: HEMATOCRIT 32.3 % (37-47)
[2017-12-18] MEDS ORDERED: FERROUS SULFAT325 M3 PO (15:10)
== END 2017-12-18 17:25 | DRG 775 ==
LOC: ERH 19:17 → 2NA 23:59 → ERHI 23:59 → ENRESERV 12-15 02:46 → 2NA 12-15 03:53
PROVIDERS: Pediatrics; Student in an Organized Health Care Education/Training Program
DX: F10.239 Alcohol dependence with withdrawal, unspecified (principal); F10.229 Alcohol dependence with intoxication, unspecified; Y90.8 Blood alcohol level of 240 mg/100 ml or more; R74.0 Nonspecific elevation of levels of transaminase and lactic acid dehydrogenase [LDH]; G40.89 Other seizures; E87.0 Hyperosmolality and hypernatremia; E87.6 Hypokalemia; Z91.14 Patient's other noncompliance with medication regimen; R80.9 Proteinuria, unspecified; Z72.0 Tobacco use; N02.8 Recurrent and persistent hematuria with other morphologic changes; K70.30 Alcoholic cirrhosis of liver without ascites; F32.9 Major depressive disorder, single episode, unspecified; Z91.410 Personal history of adult physical and sexual abuse; F41.9 Anxiety disorder, unspecified; E05.90 Thyrotoxicosis, unspecified without thyrotoxic crisis or storm; Z98.82 Breast implant status
CPT/HCPCS: 2NAP; 83883; 86160; ERO; 36415; 36592; 76775; 80307; 81001; 81025; 82436; 82570; 84165; 86803; 87389; 93005; 93010; 96374; 96375; G0480; J1650; J2405; J2550; J3250; J3490

== ENCOUNTER 2018-01-02 13:27 | Inpatient (IN) | payer OTHER ==
[~2018-01-02] VITALS: Ht 172.7 cm; Wt 56.7 kg
[~2018-01-02 13:27] MED LIST changes: +FERROUS SULFAT325 M3 PO; +OMEPRAZOLE40 M1 PO; +ONE DAILY MULT1 EAC2 PO; +ZOFRAN8 M1 PO
--- NOTE | 2018-01-02 16:33 | ED GENERAL ADULT ---
History of Present Illness General Chief Complaint: Psychiatric Related Complaint Stated Complaint: "WANT TO DETOX" Source: patient Exam Limitations: no limitations Vital Signs & Intake/Output Vital Signs & Intake/Output Vital Signs Date Time Temp Pulse Resp B/P B/P Pulse O2 O2 Flow FiO2 Mean Ox Delivery Rate 01/03 1315 98.9 100 18 131/88 01/03 1232 98.6 115 20 133/80 100 Room Air 01/03 1145 98.9 88 20 123/74 01/03 1040 98.4 110 18 139/68 01/03 0933 98.7 133 18 114/63 100 Room Air 01/03 0930 98.8 133 20 116/70 01/03 0820 98.1 78 18 117/60 01/03 0819 98.0 78 20 117/60 99 Room Air 01/03 0630 98.3 75 18 106/58 01/03 0630 98.3 75 18 106/58 98 Room Air 01/03 0432 98.5 86 20 107/56 96 Room Air 01/03 0430 98.5 86 18 107/56 01/03 0240 98.2 89 18 109/59 01/03 0240 98.2 89 18 109/59 98 Room Air 01/03 0150 98.2 85 18 108/61 98 Room Air 01/03 0130 98.2 85 18 108/61 01/03 0057 98.6 112 20 130/70 99 Room Air 01/03 0030 98.6 112 20 130/70 01/02 2230 98.2 83 18 117/59 01/02 2230 98.2 83 18 117/59 98 Room Air 01/02 202 98.9 102 18 108/72 01/02 2021 98.9 102 18 108/72 99 Room Air 01/02 1907 98 Room Air 01/02 1745 98.2 77 18 109/69 01/02 1745 77 17 109/69 99 Room Air 01/02 1553 97.9 99 18 114/77 95 Room Air 01/02 1422 98.4 100 20 132/97 95 Room Air 01/02 1358 97.5 134 20 128/93 ED Intake and Output 01/03 0000 01/02 1200 Intake Total 0 Output Total Balance 0 Intake, IV 0 Patient 124 lb Weight Weight Estimated Measurement Method Allergies Coded Allergies: No Known Allergies (12/27/17) Reconcile Medications Ferrous Sulfate 325 MG (65 MG IRON) TABLET 1 TAB PO DAILY GI BLEED PLEASE TAKE WITH FOOD Folic Acid 1 MG TABLET 1 MG PO DAILY ALCOHOLISM . Lorazepam (Ativan) 0.5 MG TABLET 0.5 MG PO BID alcohol withdrawal TAKE ONE TABLET EVENING OF 12/18, TAKE THE LAST TABLET MORNING 12/19 AND THEN STOP.. Multivitamin (One Daily Multivitamin) 1 EACH TABLET 1 TAB PO DAILY VITAMIN . Omeprazole 40 MG CAPSULE.DR 1 CAP PO DAILY gastric protection . Ondansetron HCl (Zofran) 8 MG TABLET 1 TAB PO TID NAUSEA . Oxcarbazepine (Trileptal) 150 MG TABLET 150 MG PO BID seizures . Thiamine HCl (Vitamin B-1) 100 MG TABLET 100 MG PO DAILY ALCOHOLISM . Triage Note: PT REQUEST DETOX FROM ETOH. LAST DRINK WAS THIS MORNING. PT STATES HX OF SEIZURES WITH DETOX. PT TEARFUL IN TRIAGE BUT DENIES SI/HI Triage Nurses Notes Reviewed? yes Onset: Gradual Duration: week(s): Timing: recent history Injury Environment: home : No Patient currently breastfeeds: No HPI: 32YO female with hx of alcohol withdrawal seizures presents to ED requesting alcohol detox. Patient's last drink was this morning around 8 AM, she had 1/2 pint of alcohol. Patient reports history of previous seizure during alcohol withdrawal approximately 2 years ago. Patient states she currently feels nausea , malaise, shakey, headache. She denies suicidal thoughts or ideation, drug abuse, abdominal pain, dsypnea. (Janet NASSAR,Britt Ramos) Past History Travel History Traveled to [place] past 21 day No Medical History Any Pertinent Medical History? 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 No (Britt Correa) Review of Systems Review of Systems Constitutional: Reports: see HPI. EENTM: Reports: no symptoms. Respiratory: Reports: no symptoms. Cardiovascular: Reports: no symptoms. GI: Reports: see HPI. Genitourinary: Reports: no symptoms. Musculoskeletal: Reports: no symptoms. Skin: Reports: no symptoms. Neurological/Psychological: Reports: see HPI. Hematologic/Endocrine: Reports: no symptoms. Immunologic/Allergic: Reports: no symptoms. All Other Systems: Reviewed and Negative (Britt Correa) Physical Exam Physical Exam General Appearance: well developed/nourished, no apparent distress, alert, awake Head: atraumatic, normal appearance Eyes: Bilateral: normal appearance. Ears, Nose, Throat: hearing grossly normal Neck: normal inspection, supple, full range of motion Respiratory: normal breath sounds, no respiratory distress, lungs clear Cardiovascular: regular rate/rhythm Gastrointestinal: normal bowel sounds, soft, non-tender, no organomegaly Back: normal inspection, normal range of motion Extremities: normal inspection, normal range of motion Neurologic/Psych: awake, alert, oriented x 3 Skin: intact, normal color, warm/dry Core Measures ACS in differential dx? No CVA/TIA Diagnosis: No Sepsis Present: No Sepsis Focused Exam Completed? No (Britt Correa) Progress Differential Diagnoses I considered the following diagnoses in my evaluation of the patient: [Alcohol withdrawal, alcohol abuse, alcohol withdrawal seizures, drug abuse] Plan of Care: Orders Procedure Date/time Status Regular Diet 01/03 B Active CASE MANAGEMENT CONSULT 01/03 0110 Active OXYGEN SETUP (GEN) 01/02 230 Active Saline Lock 01/[address] in observation 01/02 2304 Active Patient Data 01/02 230 Active Vital Signs 01/02 2304 Active Activity/Ambulation 01/02 230 Active Code Status 01/02 2304 Active Intake & Output 01/02 1925 Active CIWA 01/02 1610 Active URINE 01/02 1610 Complete URINE DRUG SCREEN FOR ER ONLY 01/02 161 Complete URINALYSIS 01/02 1610 Complete MAGNESIUM 01/02 1610 Complete ETHANOL 01/02 1610 Complete COMPREHENSIVE METABOLIC PANEL 01/02 1610 Complete CBC WITHOUT DIFFERENTIAL 01/02 1610 Complete Current Medications Sig/Nestor Start time Last Medication Dose Stop Time Status Admin Promethazine HCl 25 MG Q6P PRN 01/03 044 01/03 (Phenergen) 01/10 Ondansetron HCl 4 MG Q6 PRN 01/03 0045 01/03 (Zofran) 0833 Lorazepam 2 MG Q2P PRN 01/02 1845 01/03 (Ativan) 044 Lorazepam 1 MG Q2P PRN 01/02 184 01/03 (Ativan) 1043 Laboratory Tests 01/02/18 1652: Serum Alcohol 434.0 01/02/18 1652: Anion Gap 19 H, Estimated GFR > 60, BUN/Creatinine Ratio 26.7 H, Glucose 78, Calcium 8.4, Magnesium 1.6, Total Bilirubin 0.4, AST 152 H, ALT 80 H, Alkaline Phosphatase 83, Total Protein 7.5, Albumin 4.4, Globulin 3.1, Albumin/Globulin Ratio 1.4, CBC w Diff NO MAN DIFF REQ, RBC 4.69, MCV 84.7, MCH 27.7, MCHC 32.7 L, RDW 16.6 H, MPV 6.5 L, Gran % 51.4, Lymphocytes % 44.7, Monocytes % 2.7, Eosinophils % 0.2, Basophils % 1.0, Absolute Granulocytes 2.3, Absolute Lymphocytes 2.0, Absolute Monocytes 0.1, Absolute Eosinophils 0, Absolute Basophils 0, Urine Opiates Screen < 100, Methadone Screen < 40, Barbiturate Screen < 60, Ur Phencyclidine Scrn < 6.00, Amphetamines Screen < 100, U Benzodiazepines Scrn > 800 H, Urine Cocaine Screen 341 H, Urine Cannabis Screen < 5.00, Urine Color YEL, Urine Clarity CLDY H, Urine pH 6.0, Ur Specific [place] >= 1.030, Urine Protein 100 H, Urine Ketones TRACE H, Urine Nitrite POS H, Urine Bilirubin NEG, Urine Urobilinogen 0.2, Ur Leukocyte Esterase NEG, Ur Microscopic SEDIMENT EXAMINED, Urine RBC FEW H, Urine WBC 5-10 H, Ur Epithelial Cells FEW, Urine Bacteria PACKD H, Urine Mucus FEW, Urine Hemoglobin SMALL H, Urine Glucose NEG, Urine Test NEGATIVE Patient has history of alcohol withdrawal related seizures. Initial CIWA score 9. Patient meets criteria for hospital stay based on these factors. Ativan PRN initiated. Patient is so alcohol level very elevated, alcohol level needs to be less than 100 prior to approval for inpatient admission. Spoke with case management and Dr. Reyes. Will initate ED observation for this patient's alcohol withdrawal. Initial ED EKG: none Hand-Off Endorsed To: Rolando Reyes MD Endorsed Time: 2300 Pending: other (ED obs) (Janet NASSAR,Britt Ramos) Differential Diagnoses I considered the following diagnoses in my evaluation of the patient: Hand-Off Endorsed To: Jovan Ellis MD Endorsed Time: 699 Pending: other (CIWA, case mgmt) (Rolando Reyes MD) Comments: Patient states that she remained sober for approximately 5 days after discharge last time. Patient states that she is just under a lot of stress and she just got . When asked what she will do differently if she is admitted this time she stated that she is to stay with somebody different. Patient advised that that is what she said upon discharge 2 weeks ago. Patient states that this time she will follow-through. Patient also advised that she really needs further help with the psychological dependency to alcohol and that just admitted to the hospital to treat the physical dependency is not going to help with the mental dependency as well. Patient states that she will follow up and do what is needed to help maintain sobriety. (Jovan Ellis MD) Departure Departure Disposition: STILL A PATIENT Condition: Stable Clinical Impression Primary Impression: Alcohol withdrawal Qualifiers: Complication of substance-induced condition: uncomplicated Qualified Code: F10.230 - Alcohol dependence with withdrawal, uncomplicated Secondary Impressions: Alcohol abuse Referrals: Joel Maldonado MD (PCP/Family) Departure Forms: Customer Survey General Discharge Information Observation Note Spoke With: Rolando Reyes MD Physician Advisor Notified: ROSITA TRIANA DO Place Patient In: ED Observation Rationale for Observation: My rational for observation is as follows [patient requiring monitoring for alcohol withdrawal. Patient has a history of alcohol withdrawal related seizures. Initial CIWA scores 9 and trending upward. The patient requires IV Ativan, further CIWA monitoring, detox from alcohol.]. (Britt Correa) PA/MARINE PIPEFITTER HELPER Co-Sign Statement Statement: ED Attending supervision documentation- x I saw and evaluated the patient. I have also reviewed all the pertinent lab results and diagnostic results. I agree with the findings and the plan of care as documented in the PA's/MARINE PIPEFITTER HELPER's documentation. Continues to mount significant CIWA scoring despite IV ativan. [] I have reviewed the ED Record and agree with the PA's/MARINE PIPEFITTER HELPER's documentation. [] Additions or exceptions (if any) to the PAs/MARINE PIPEFITTER HELPER's note and plan are summarized below: [] (Rolando Reyes MD) Admission Note Spoke With: Huan Welsh MD Documentation of Exam: Documentation of any treatments & extenuating circumstances including Concerns Regarding Discharge (functional status, medication knowledge or non-compliance, living conditions, etc.) that warrant an admission rather than observation: [ ATIVAN PER CIWA, NEEDS SOCIAL WORK INVOLVMENT FOR POST HOSPITALIZATION TREAMENT FOR HER ALCOHOLISM] Alcohol Withdrawl Admission ED Alcohol Detox Admission d/t: CIWA Score >15, DTs/Seizure w/i last year (Caleb HOU,Jovan Avilez) Critical Care Note Critical Care Note Critical Care Time: non-applicable (Janet NASSAR,Britt Ramos) Critical Care Note Critical Care Time: 30-74 min (40) (Rolando Reyes MD) ED Attending Observation Initial Observation Note: I have seen and personally examined BERNADINE VILLANUEVA on 01/03/18 at 0000 I agree with the current emergency department documentation. The disposition (admission or discharge) is uncertain at this time, she needs a period of observation for the following reason(s): Alcohol dependence with withdrawal seizure for detox. The ED Nurse caring for this patient has been personally informed as to what the patient is being observed for. (Rolando Reyes MD) Observation Re-Evaluation: I have reevaluated BERNADINE VILLANUEVA on 01/03/18 at 0745. The physical findings that support the continued need to observe this patient include [patient CIWA score remains elevated. Awaiting state approval for admission to the hospital.]. Observation Discharge: I have reevaluated BERNADINE VILLANUEVA on 01/03/18 at 1328. The patient is: (): Stable for discharge (): To be admitted to Nursing Floor (): To be placed in Observation on Nursing Floor (): For transfer to other facility The patient was being observed for [ALCOHOL DEPENDENCY IN ACUTE WITHDRAWAL] As a result of that observation, I have determined [ADMIT TO HOSPITAL]. (Caleb HOU,Jovan Avilez)
[2018-01-02 17:31] LABS: ABSOLUTE BASOPHIL COUNT 0 /CUMM (0.0-0.2); ABSOLUTE EOSINOPHIL COUNT 0 /CUMM (0.0-0.7); ABSOLUTE GRANULOCYTE CT 2.3 /CUMM (1.4-6.5); ABSOLUTE MONOCYTE COUNT 0.1 /CUMM (0.10-0.60); EOSINOPHIL % 0.2 % (0-5); GRANULOCYTE % 51.4 % (42.2-75.2); HEMATOCRIT 39.7 % (37-47); MEAN CORPUSCULAR HGB 27.7 PG (27.0-31.0); MEAN CORPUSCULAR HGB CONC 32.7 G/DL (33.0-37.0); MEAN CORPUSCULAR VOLUME 84.7 FL (81.0-99.0); MEAN PLATELET VOLUME 6.5 FL (7.4-10.4); PLATELET COUNT 400 /CUMM (130-400); RBC DISTRIBUTION WIDTH 16.6 % (11.5-14.5); RED BLOOD CELL CT 4.69 /CUMM (4.20-5.40); WHITE BLOOD CELL COUNT 4.4 /CUMM (4.8-10.8)
[2018-01-02 17:45] VITALS: BP 109/69
[2018-01-02 20:22] VITALS: BP 108/72
[2018-01-02 22:30] VITALS: BP 117/59
[2018-01-02 22:49] VITALS: BP 117/59
[2018-01-03] VITALS (15 sets, daily range): BP systolic 106–139; BP diastolic 56–88
--- NOTE | 2018-01-03 16:28 | Admission Certification ---
Admission Certification Certification Statement - As attending physician, I certify that at the time of - admission, based on clinical presentation, severity of - symptoms, need for further diagnostic testing and - therapeutic interventions, and risk of adverse outcomes - without in-hospital treatment, in my clinical assessment, - this patient requires an acute hospital stay for a minimum - of two nights or longer. I have also considered psychsocial - factors such as support system, advanced age, financial - issues, cognitive issues, and failed out-patient treatments, - past re-admission history, safety of patient, and lack of - compliance as applicable. Specific rationale supporting this admission is: Hospitalization is required for management of her anxiety disorder and alcohol withdrawal symptoms.
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
[2018-01-04] VITALS: BP 110/74
[2018-01-04 01:19] VITALS: BP 106/71
[2018-01-04 02:00] VITALS: BP 106/71
[2018-01-04 06:00] VITALS: BP 110/78
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
[2018-01-04 13:48] VITALS: BP 106/65
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
[2018-01-04 23:13] VITALS: BP 100/60
[2018-01-05 03:05] VITALS: BP 112/70
[2018-01-05 06:52] VITALS: BP 98/60
--- NOTE | 2018-01-05 08:09 | PN- Housestaff ---
Hipolito HOU,[facility] 01/05/18 0809: Subjective Follow-up For: Alcohol detox Subjective: Patient seen and examined. She was sitting comfortably does not offer any complaints. Review of Systems Constitutional: Reports: see HPI. Objective Last 24 Hrs of Vital Signs/I&O Vital Signs Date Time Temp Pulse Resp B/P B/P Pulse O2 O2 Flow FiO2 Mean Ox Delivery Rate 01/05 1459 98.7 98 20 114/79 98 / 0652 97.7 66 14 98/60 99 Room Air 01/05 0305 98.9 80 16 112/70 98 Room Air 01/04 2313 98.2 78 22 100/60 93 Room Air Intake & Output 01/05 1600 01/05 0800 01/05 0000 Intake Total 420 100 100 Output Total Balance 420 100 100 Intake, Oral 420 100 100 Physical Exam General Appearance: Oriented X3, Cooperative, tremors Lungs: Clear to Auscultation Abdomen: Normal Bowel Sounds Current Medications: Current Medications Sig/Nestor Start time Last Medication Dose Route Stop Time Status Admin Enoxaparin Sodium 40 MG DAILY 01/04 0900 AC SC Folic Acid 1 MG DAILY 01/03 1414 AC 01/05 PO 0853 Lorazepam 1.5 MG Q4 01/05 1800 AC 01/05 PO 1800 Lorazepam 2 MG Q4 01/03 1800 DC 01/05 PO 1403 Lorazepam 1 MG Q4P PRN 01/03 1600 AC 01/04 IV 1632 Multivitamins 1 TAB DAILY 01/03 1414 AC 01/05 PO 0853 Omeprazole 40 MG DAILY AC 01/03 1731 AC 01/05 PO 0625 Ondansetron HCl 4 MG Q6 PRN 01/03 0045 AC 01/04 IV 1634 Promethazine HCl 25 MG Q6P PRN 01/03 0445 AC 06/ IV /07 0444 1500 Thiamine HCl 100 MG DAILY 01/03 1413 AC 01/05 PO 0853 Assessment/Plan Assessment: The patient is 32-year-old female here for alcohol withdrawal -Seizure precautions as patient did have seizures in the past -Continue with Ativan taper 1.5 mg every 4 decreasing to 1.0 mg every 4 the following day. -Continue fluids at 100 cc/h -Phenergan for nausea and vomiting -Follow-up BEP and magnesium show no abnormalities -Psychiatry consult for anxiety disorder -We will defer treatment of her proteinuria. She will follow-up with nephrology outpatient. Problem List: 1. Alcoholism Pain Ratin Pain Location: prn Pain Goal: Pain 4 or less Pain Plan: prn Tomorrow's Labs & Rationales: none Omari Stevens MD 01/05/18 0947: Attending MD Review Statement Attending Statement Attending MD Statement: examined this patient, discuss w/resident/PA/VP CORPORATE PARTNERSHIPS, agreed w/resident/PA/VP CORPORATE PARTNERSHIPS, discussed with family, reviewed EMR data (avail), discussed with nursing, discussed with case mgmt, reviewed images, amended to note Attending Assessment/Plan: Omari Pichardo M.D. have examined this patient, reviewed available EMR data, personally reviewed images, discussed with resident/PA/VP CORPORATE PARTNERSHIPS, discussed management plan with housestaff and nursing staff, discussed managment plan all of healthcare providers, discussed management plan with patient and/or family, agreed with resident/PA/VP CORPORATE PARTNERSHIPS. The past history and parts of the chart have been autopopulated. Impression 32 year old woman * etoh dependence and withdrawal * anxiety Plan -monitor ciwa -ativan per ciwa -mvi, folate, thiamine -no nausea at this time -psychiatry/crisis appreciated -anxiolysis per psychiatry DVT prophylaxis at all times
[2018-01-05 14:59] VITALS: BP 114/79
[2018-01-05 22:24] VITALS: BP 97/63
[2018-01-06 03:06] VITALS: BP 100/64
[2018-01-06 06:41] VITALS: BP 96/58
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
[2018-01-06 14:34] VITALS: BP 103/63
[2018-01-06 22:35] VITALS: BP 98/61
[2018-01-07] VITALS (7 sets, daily range): BP systolic 90–98; BP diastolic 50–71
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
--- NOTE | 2018-01-07 07:43 | Patient Discharge Instructions ---
Discharge Instructions General Discharge Information You were seen/treated for: ALCOHOL DETOX Special Instructions: 1. PLEASE FOLLOW UP WITH PRIMARY DOCTOR IN ONE WEEK 2. PLEASE FOLLOW UP WITH [facility] Diet Continue normal diet: Yes Activity Full Activity/No Limits: Yes Acute Coronary Syndrome Inclusion Criteria At DC or during hospital stay patient has or had the following: ACS DIAGNOSIS No Discharge Core Measures Meds if any: Prescribed or Continued at Discharge Meds if any: NOT Prescribed or Continued at Discharge Congestive Heart Failure Inclusion Criteria At DC or during hospital stay patient has or had the following: CHF DIAGNOSIS No Discharge Core Measures Meds if any: Prescribed or Continued at Discharge Meds if any: NOT Prescribed or Continued at Discharge Cerebrovascular accident Inclusion Criteria At DC or during hospital stay patient has or had the following: CVA/TIA Diagnosis No Discharge Core Measures Meds if any: Prescribed or Continued at Discharge Meds if any: NOT Prescribed or Continued at Discharge Venous thromboembolism Inclusion Criteria VTE Diagnosis No VTE Type NONE VTE Confirmed by (Test) NONE Discharge Core Measures - Per Current guidelines, there needs to be overlap - treatment for the first 5 days of Warfarin therapy. - If discharged on Warfarin prior to 5 days of - overlap therapy, the patient will need to be - assessed for post discharge needs including - *Post discharge parental anticoagulation - *Warfarin and/or parental anticoagulation education - *Follow up date to check INR post discharge At least 5 days overlap therapy as Inpatient No Meds if any: Prescribed or Continued at Discharge Note: Overlap Therapy is Warfarin and Anticoagulant Meds if any: NOT Prescribed or Continued at Discharge
[2018-01-08 01:56] VITALS: BP 94/58
[2018-01-08 05:57] VITALS: BP 100/50
--- NOTE | 2018-01-08 08:33 | PN- Housestaff ---
See Addendum Subjective Follow-up For: etoh withdrawal Subjective: complaining of some nausea and dry heaving no vomiting, fever, diarrhea or abdominal pain Review of Systems Constitutional: Reports: see HPI. Objective Last 24 Hrs of Vital Signs/I&O Vital Signs Date Time Temp Pulse Resp B/P B/P Pulse O2 O2 Flow FiO2 Mean Ox Delivery Rate 01/08 1036 97.5 96 20 101/62 100 Room Air / 0800 Room Air /05 0557 98.2 63 20 100/50 100 Room Air 06/05 0156 98.0 60 20 94/58 97 Room Air 06/04 2222 98.3 67 18 90/50 98 06/04 1814 98.3 78 20 98/60 100 06/04 1603 98.3 84 18 94/60 100 /04 1400 97.6 110 20 98/71 94 Room Air Intake & Output 01/08 1600 01/08 0800 01/08 0000 Intake Total 240 410 480 Output Total Balance 240 410 480 Intake, IV 50 Intake, Oral 240 360 480 Physical Exam General Appearance: Alert, Oriented X3, Cooperative, No Acute Distress Cardiovascular: Regular Rate, Normal S1, Normal S2, No Murmurs Lungs: Clear to Auscultation, Normal Air Movement Abdomen: Normal Bowel Sounds, Soft, No Tenderness, No Masses Extremities: No Clubbing, No Cyanosis, No Edema, Normal Pulses Current Medications: Current Medications Sig/Nestor Start time Last Medication Dose Route Stop Time Status Admin Docusate Sodium 100 MG DAILY NEEDED PRN 01/06 0445 AC PO Enoxaparin Sodium 40 MG DAILY 01/04 0900 01/08 SC 0843 Folic Acid 1 MG DAILY 01/03 1414 AC 01/08 PO 0843 Ibuprofen 400 MG Q8P PRN 01/06 0915 01/07 PO 1043 Lorazepam 0.5 MG BID 01/08 09 AC PO 01/15 0859 Lorazepam 0.5 MG Q8 01/07 1015 DC 01/08 PO 01/14 1007 0546 Lorazepam 1 MG Q4P PRN 01/03 1600 DC 01/04 IV 1632 Multivitamins 1 TAB DAILY 01/03 1414 AC 01/08 PO 0842 Omeprazole 40 MG DAILY AC 01/03 1731 AC 01/08 PO 0545 Ondansetron HCl 4 MG ONCE ONE 01/08 1100 DC 01/08 IV 01/08 1101 1111 Ondansetron HCl 4 MG ONCE ONE 01/08 1000 DC PO 01/08 1001 Ondansetron HCl 4 MG Q6 PRN 01/03 0045 DC 01/07 IV 2000 Polyethylene Glycol 17 GM DAILY 01/06 0900 AC 01/08 PO 0843 Promethazine HCl 25 MG .STK-MED ONE 01/07 1439 DC IM 01/07 1440 Promethazine HCl 25 MG Q6P PRN 01/03 0445 DC 01/08 IV 01/10 0444 0603 Senna 187 MG AT BEDTIME 01/06 2100 AC 01/07 PO 2002 Thiamine HCl 100 MG DAILY 01/03 1413 AC 01/08 PO 0842 Last 24 Hrs of Lab/Marty Results Last 24 Hrs of Labs/Mics: Laboratory Tests 01/08/18 1147: Total Bilirubin 0.4, Direct Bilirubin 0, AST 87 H, ALT 79 H, Alkaline Phosphatase 65, Total Protein 6.9, Albumin 3.9 Assessment/Plan Assessment: 32 year old female with history of etoh dependence and recent detox last month presents again for detox after recent relapse. Serum alcohol level was 400+ on presentation and is now completing her benzodiazepine taper EtoH withdrawal: Completed ativan taper CIWA 0-5 Social work consulted Patient thinking about doing IOP at [facility] vs [facility] recovery program Repeat LFTs, if stable can plan for discharge Continue PO multivitamins f/u proteinuria with nephrology outpatient Outpatient psych follow up for anxiety Continue trileptal for history of seizures Regular diet DVT ppx-Lovenox subcutaneous Full code Problem List: 1. Alcoholism 2. Alcohol withdrawal 3. Proteinuria 4. History of seizures Pain Ratin Pain Location: n/a Pain Goal: Pain 4 or less Pain Plan: prn Tomorrow's Labs & Rationales: none
[2018-01-08 10:36] VITALS: BP 101/62
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
[2018-01-08 13:43] VITALS: BP 114/78
== END 2018-01-08 15:10 | DRG 775 ==
LOC: ERH 13:27 → ERHI 23:04 → 2NA 01-03 13:30 → ERHI 01-03 13:30 → CANBEDREQ 01-03 13:56 → ERHI 01-03 14:06 → ENRESERV 01-03 16:30 → ENTRNSPT 01-03 18:36 → 2NA 01-03 18:37 → EDTRNSPTSTS 01-03 18:47 → EDTRNSPT 01-03 18:47 → 2NA 01-03 18:47 → EDTRNSPT 01-03 18:57 → CMPTRNSPT 01-03 19:05 → ENPENDDIS 01-08 13:13 → 2NA 01-08 15:10
PROVIDERS: Physician Assistant
DX: F10.239 Alcohol dependence with withdrawal, unspecified (principal); Y90.8 Blood alcohol level of 240 mg/100 ml or more; Z63.5 Disruption of family by separation and divorce; K70.30 Alcoholic cirrhosis of liver without ascites; E05.90 Thyrotoxicosis, unspecified without thyrotoxic crisis or storm; F17.210 Nicotine dependence, cigarettes, uncomplicated; F43.10 Post-traumatic stress disorder, unspecified; R80.9 Proteinuria, unspecified; F41.9 Anxiety disorder, unspecified; F31.9 Bipolar disorder, unspecified
CPT/HCPCS: 2NASP; 36415; 36592; 80307; 81001; 81025; 82436; 96374; 96375; 96376; G0480; J1650; J2405; J2550; J3101; J3490; J7120

== ENCOUNTER 2018-01-18 15:20 | Inpatient (IN) | payer OTHER ==
[~2018-01-18] VITALS: Ht 172.7 cm; Wt 51.7 kg
--- NOTE | 2018-01-18 16:14 | ED PSYCHIATRIC COMPLAINT ---
History of Present Illness General Chief Complaint: ETOH/Drug Related Complaint Stated Complaint: ALCOHOL DETOX +SI Source: patient Exam Limitations: no limitations Allergies Coded Allergies: No Known Allergies (08/01/17) Triage Note: PT STATES SHE IS DETOXING FROM ETOH, LAST DRAINK WAS DAYS AGO. PT STATES SHE WAS DRINKING 1 PINT OF WHISKY DAILY. PT DENIES DRUG USE. PT DENIES SI/HI AT THIS TIME. Triage Nurses Notes Reviewed? yes Onset: Gradual Duration: week(s): Timing: recent history Severity: moderate : No Patient currently breastfeeds: No HPI: 32-year-old female with history of alcohol abuse, alcohol withdrawal related seizures presents to emergency department requesting alcohol detox. Patient's last drink was earlier today, she is unsure, she drank. Patient recently went through alcohol detox however she relapsed within the past few weeks. Patient denies drug use, SI/HI, depression, abdominal pain, vomiting, chest pain, headache. (Janet NASSAR,Britt Ramos) Vital Signs & Intake/Output Vital Signs & Intake/Output Vital Signs Date Time Temp Pulse Resp B/P B/P Pulse O2 O2 Flow FiO2 Mean Ox Delivery Rate 01/22 1357 97.0 93 18 90/60 97 Room Air 01/22 0951 98.4 69 20 90/60 99 Room Air 01/22 0555 97.7 60 20 99/71 100 Room Air 01/22 0219 97.8 56 20 96/76 99 Room Air 01/22 0000 98.2 85 18 102/73 01/21 2200 98.2 85 18 102/73 01/21 2152 98.2 85 18 102/73 96 18 1825 98.5 95 20 115/81 100 ED Intake and Output 01/22 0000 01/21 1200 Intake Total 1000 200 Output Total Balance 1000 200 Intake, Oral 1000 200 Patient 114 lb Weight Reconcile Medications Disulfiram 250 MG TABLET 1 TAB PO DAILY alcohol use disorder . Ferrous Sulfate 325 MG (65 MG IRON) TABLET 1 TAB PO DAILY GI BLEED PLEASE TAKE WITH FOOD Folic Acid 1 MG TABLET 1 MG PO DAILY ALCOHOLISM . Multivitamin (One Daily Multivitamin) 1 EACH TABLET 1 TAB PO DAILY VITAMIN . Omeprazole 40 MG CAPSULE.DR 1 CAP PO DAILY gastric protection . Ondansetron HCl (Zofran) 8 MG TABLET 1 TAB PO TID PRN nausea Oxcarbazepine (Trileptal) 150 MG TABLET 150 MG PO BID seizures . Thiamine HCl (Vitamin B-1) 100 MG TABLET 100 MG PO DAILY ALCOHOLISM . (Nicolas HOU,Riley Rondon) Past History Travel History Traveled to [place] past 21 day No Medical History Any Pertinent Medical History? 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/Reproductive: miscarriage, STILLBORN DELIVERY History of MRSA: No History of VRE: No History of CDIFF: No Tetanus Vaccine: 02/14/12 Surgical History Surgical History: 2 C-SECTIONS, SELINA breast augmentation, fractured right arm surgery BUNION REMOVAL BOTH FEET PINS TO BOTH FEET TONSILLECTOMY Psychosocial History Who do you live with Patient/Self Services at Home None What is your primary language Panamanian Tobacco Use: Current Not Daily Daily Tobacco Use Amount/Type: =< 4 Cigarettes daily ETOH Use: alcoholic Illicit Drug Use: denies illicit drug use Family History Family History, If Any: MOTHER FATHER Hx Contributory? No (Britt Correa) Review of Systems Review of Systems Constitutional: Reports: no symptoms. EENTM: Reports: no symptoms. Respiratory: Reports: no symptoms. Cardiovascular: Reports: no symptoms. GI: Reports: no symptoms. Genitourinary: Reports: no symptoms. Musculoskeletal: Reports: no symptoms. Skin: Reports: no symptoms. Neurological/Psychological: Reports: see HPI. Hematologic/Endocrine: Reports: no symptoms. Immunologic/Allergic: Reports: no symptoms. All Other Systems: Reviewed and Negative (Britt Correa) Physical Exam Physical Exam General Appearance: well developed/nourished, alert, awake, intoxicated Head: atraumatic, normal appearance Eyes: Bilateral: normal appearance, PERRL, EOMI. Ears, Nose, Throat: hearing grossly normal Neck: normal inspection, supple, full range of motion Respiratory: normal breath sounds, no respiratory distress, lungs clear Cardiovascular: regular rate/rhythm Gastrointestinal: normal bowel sounds, soft, non-tender, no organomegaly Extremities: normal range of motion Neurological/Psychiatric: awake, calm Appearance/Memory/Insight: appropriate appearance Behavoir/Eye Contact/Speech: cooperative, decreased rate of speech Thoughts/Hallucinations: normal thought pattern Skin: intact, normal color, warm/dry SAD PERSONS Done? patient not suicidal (Britt Correa) Progress Differential Diagnosis: drug intoxication, drug overdose, drug withdrawal, electrolyte abnormality (Britt Correa) Plan of Care: Orders Procedure Date/time Status HEPATIC FUNCTION PANEL 01/23 06 Active CBC WITHOUT DIFFERENTIAL 01/23 600 Active BASIC ELECTROLYTES PLUS BUN&CR 01/23 600 Active Anticipated Discharge 01/22 UNK Active MISSING MEDICATION FORM 01/21 UNK Active Current Medications Sig/Nestor Start time Last Medication Dose Stop Time Status Admin Lorazepam 0.5 MG Q8 01/22 1400 AC 01/22 (Ativan) 01/29 0923 1306 Multivitamins 1 TAB DAILY 01/20 0900 AC 01/22 (Theragran Vitamins) 0913 Omeprazole 40 MG DAILY AC 01/20 0700 AC 01/22 (Prilosec) 0556 Polyethylene Glycol 17 GM DAILY 01/19 2215 AC 01/22 (Miralax) 0913 Senna/Docusate Sodium 1 TAB BID PRN 01/19 2215 AC (Senokot S) Heparin Sodium 5,000 UNIT Q8 01/19 2200 AC 01/22 (Porcine) 1306 Oxcarbazepine 150 MG BID 01/19 2100 AC 01/22 (Trileptal 150MG Tab) 0913 Lorazepam 0 Q1P PRN 01/19 1830 AC 01/22 (Ativan) 1636 Promethazine HCl 25 MG Q4 PRN 01/19 1100 AC 01/22 (Phenergan 25MG 01/26 1059 1636 Tablet) Ondansetron HCl 4 MG Q6P PRN 01/19 0700 AC 01/22 (Zofran) 1152 Patient's initial alcohol level is elevated. She appears intoxicated during exam. CIWA score of 10. Patient started on Ativan. Case management recommended Emergency Department observation given patient's elevated alcohol level. Dr. Valenzuela agrees with this plan. The patient was signed out to Dr. Valenzuela for ED observation for alcohol withdrawal. 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 Awaiting preauthorization for treatment. 01/19/2018 9:55:36 AM BERNADINE is resting comfortably. 01/19/2018 5:48:10 PM patient's preauthorization is complete for admission. I have given her an additional dose of Ativan given her tachycardia and increased CIWA score. Patient's case discussed with Dr. Abrams. (Shaila HOU,Luis Williamson) Departure Departure Disposition: STILL A PATIENT Condition: Stable Clinical Impression Primary Impression: Alcohol withdrawal Qualifiers: Complication of substance-induced condition: with unspecified complication Qualified Code: F10.239 - Alcohol dependence with withdrawal, unspecified Referrals: Joel Maldonado MD (PCP/Family) Departure Forms: Customer Survey General Discharge Information (Janet NASSAR,Britt Ramos) Departure Prescriptions: Current Visit Scripts Disulfiram 1 TAB PO DAILY #30 TAB . Ondansetron HCl (Zofran) 1 TAB PO TID PRN nausea #10 TAB Comments pt to be signed out to dr. martínez, 01/19/18, 7am. PA/INSOLE TAPER Co-Sign Statement Statement: ED Attending supervision documentation- X I saw and evaluated the patient. I have also reviewed all the pertinent lab results and diagnostic results. I agree with the findings and the plan of care as documented in the PA's/INSOLE TAPER's documentation. 01/18/18, 19:35... pt with elevated etoh level, and with increasing ciwa scores... merits ed obs for administration of benzos, case management to evaluate in am. [] I have reviewed the ED Record and agree with the PA's/INSOLE TAPER's documentation. [] Additions or exceptions (if any) to the PAs/INSOLE TAPER's note and plan are summarized below: [] (Nicolas HOU,Riley Rondon) Admission Note Spoke With: Pavel Abrams MD Documentation of Exam: Documentation of any treatments & extenuating circumstances including Concerns Regarding Discharge (functional status, medication knowledge or non-compliance, living conditions, etc.) that warrant an admission rather than observation: Continued alcohol consumption places the patient at high risk of pancreatitis, pancreatic failure, liver failure and cirrhosis. In order to avoid this the patient will need to cease drinking alcohol. Patient's alcohol use places her at high risk of seizures and delirium tremens during cessation (patient has a documented history of delirium tremens). Patient will be at high risk of withdrawal seizures and delirium tremens (both of which can be fatal) for up to 5 days after stopping alcohol. she will require IV Ativan to prevent these complications. pt is therefore a very poor candidate for outpatient treatment given the above concerns and treatment needs. Pt will require a multiple day hospitalization. (Shaila HOU,Luis Williamson) Critical Care Note Critical Care Note Critical Care Time: 30-74 min (Shaila HOU,Luis Williamson) ED Attending Observation Initial Observation Note: I have seen and personally examined BERNADINE VILLANUEVA on 01/18/18 at 1928. I agree with the current emergency department documentation. The disposition (admission or discharge) is uncertain at this time, she needs a period of observation for the following reason(s): ALCOHOL DETOX, HIGH CIWA SCORES, REQUIRING PARENTERAL BENZOS. The ED Nurse caring for this patient has been personally informed as to what the patient is being observed for. (Nicolas HOU,Riley Rondon) (Nicolas HOU,Riley Rondon)
[2018-01-18 16:41] LABS: ABSOLUTE BASOPHIL COUNT 0 /CUMM (0.0-0.2); ABSOLUTE EOSINOPHIL COUNT 0 /CUMM (0.0-0.7); ABSOLUTE GRANULOCYTE CT 3.8 /CUMM (1.4-6.5); ABSOLUTE LYMPH COUNT 1.2 /CUMM (1.2-3.4); ABSOLUTE MONOCYTE COUNT 0.1 /CUMM (0.10-0.60); BASOPHIL % 0.7 % (0.0-2.0); EOSINOPHIL % 0 % (0-5); GRANULOCYTE % 73.9 % (42.2-75.2); HEMATOCRIT 39.2 % (37-47); MEAN CORPUSCULAR HGB 27.7 PG (27.0-31.0); MEAN CORPUSCULAR HGB CONC 33.2 G/DL (33.0-37.0); MEAN CORPUSCULAR VOLUME 83.5 FL (81.0-99.0); MEAN PLATELET VOLUME 6.3 FL (7.4-10.4); PLATELET COUNT 366 /CUMM (130-400); RBC DISTRIBUTION WIDTH 17.8 % (11.5-14.5); WHITE BLOOD CELL COUNT 5.1 /CUMM (4.8-10.8)
[2018-01-18 18:08] VITALS: BP 116/79
[2018-01-18 19:58] VITALS: BP 117/80
[2018-01-18 22:05] VITALS: BP 109/61
[2018-01-19 04:00] VITALS: BP 132/86
[2018-01-19 06:29] VITALS: BP 119/75
[2018-01-19 16:20] VITALS: BP 120/88
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
[2018-01-19 19:50] LABS: ABSOLUTE BASOPHIL COUNT 0 /CUMM (0.0-0.2); ABSOLUTE EOSINOPHIL COUNT 0 /CUMM (0.0-0.7); ABSOLUTE GRANULOCYTE CT 2.7 /CUMM (1.4-6.5); ABSOLUTE LYMPH COUNT 1.1 /CUMM (1.2-3.4); ABSOLUTE MONOCYTE COUNT 0.1 /CUMM (0.10-0.60); BASOPHIL % 0.5 % (0.0-2.0); EOSINOPHIL % 0.7 % (0-5); GRANULOCYTE % 67.7 % (42.2-75.2); HEMATOCRIT 34.5 % (37-47); MEAN CORPUSCULAR HGB 27.6 PG (27.0-31.0); MEAN CORPUSCULAR HGB CONC 33.2 G/DL (33.0-37.0); MEAN CORPUSCULAR VOLUME 83.3 FL (81.0-99.0); MEAN PLATELET VOLUME 6.4 FL (7.4-10.4); PLATELET COUNT 227 /CUMM (130-400); RBC DISTRIBUTION WIDTH 17.5 % (11.5-14.5); RED BLOOD CELL CT 4.13 /CUMM (4.20-5.40)
[2018-01-19 19:57] LABS: PT 10.9 SEC (9.4-12.5)
[2018-01-19 21:37] VITALS: BP 110/78
--- NOTE | 2018-01-19 23:01 | Admission Certification ---
Admission Certification Certification Statement - As attending physician, I certify that at the time of - admission, based on clinical presentation, severity of - symptoms, need for further diagnostic testing and - therapeutic interventions, and risk of adverse outcomes - without in-hospital treatment, in my clinical assessment, - this patient requires an acute hospital stay for a minimum - of two nights or longer. I have also considered psychsocial - factors such as support system, advanced age, financial - issues, cognitive issues, and failed out-patient treatments, - past re-admission history, safety of patient, and lack of - compliance as applicable. Specific rationale supporting this admission is: The patient presents with alcohol dependence and in withdrawal. Has h/o complicated withdrawal and DT's (?seizures). Needs admission for detox including po/IV Ativan, thiamine, MVI, etc. as perprotocol. Restat anti-seizure meds.
[2018-01-20 02:21] VITALS: BP 118/66
[2018-01-20 06:40] VITALS: BP 108/76
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
[2018-01-20 10:37] VITALS: BP 107/70
[2018-01-20 15:13] VITALS: BP 113/75
[2018-01-20 17:33] VITALS: BP 121/86
[2018-01-20 21:52] VITALS: BP 119/80
[2018-01-21] VITALS (7 sets, daily range): BP systolic 96–124; BP diastolic 68–91
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
[2018-01-22] VITALS (8 sets, daily range): BP systolic 90–102; BP diastolic 60–76
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
[2018-01-22] MEDS ORDERED: DISULFIRAM250 M1 PO (10:32)
--- NOTE | 2018-01-22 11:21 | Patient Discharge Instructions ---
Discharge Instructions General Discharge Information You were seen/treated for: alcohol use disorder, dependence and withdrawal Special Instructions: Please follow up with your primary care physician, psychiatrist, and therapist Mahnaz at [facility] 1200pm. Also follow up with your cleaning matron for proteinuria and possible kidney biopsy. Acute Coronary Syndrome Inclusion Criteria At DC or during hospital stay patient has or had the following: ACS DIAGNOSIS No Discharge Core Measures Meds if any: Prescribed or Continued at Discharge Meds if any: NOT Prescribed or Continued at Discharge Congestive Heart Failure Inclusion Criteria At DC or during hospital stay patient has or had the following: CHF DIAGNOSIS No Discharge Core Measures Meds if any: Prescribed or Continued at Discharge Meds if any: NOT Prescribed or Continued at Discharge Cerebrovascular accident Inclusion Criteria At DC or during hospital stay patient has or had the following: CVA/TIA Diagnosis No Discharge Core Measures Meds if any: Prescribed or Continued at Discharge Meds if any: NOT Prescribed or Continued at Discharge Venous thromboembolism Inclusion Criteria VTE Diagnosis No VTE Type NONE VTE Confirmed by (Test) NONE Discharge Core Measures - Per Current guidelines, there needs to be overlap - treatment for the first 5 days of Warfarin therapy. - If discharged on Warfarin prior to 5 days of - overlap therapy, the patient will need to be - assessed for post discharge needs including - *Post discharge parental anticoagulation - *Warfarin and/or parental anticoagulation education - *Follow up date to check INR post discharge At least 5 days overlap therapy as Inpatient No Meds if any: Prescribed or Continued at Discharge Note: Overlap Therapy is Warfarin and Anticoagulant Meds if any: NOT Prescribed or Continued at Discharge
[2018-01-23 02:00] VITALS: BP 100/60
[2018-01-23 06:00] VITALS: BP 106/68
[2018-01-23 06:20] VITALS: BP 106/68
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
[2018-01-23] MEDS ORDERED: ZOFRAN8 M1 PO ×2 (08:05→08:14)
[2018-01-23] MEDS ORDERED: DISULFIRAM250 M1 PO (08:05)
[2018-01-23 08:23] LABS: ABSOLUTE BASOPHIL COUNT 0 /CUMM (0.0-0.2); ABSOLUTE EOSINOPHIL COUNT 0.1 /CUMM (0.0-0.7); ABSOLUTE LYMPH COUNT 1.6 /CUMM (1.2-3.4); ABSOLUTE MONOCYTE COUNT 0.2 /CUMM (0.10-0.60); BASOPHIL % 0.8 % (0.0-2.0); GRANULOCYTE % 51.4 % (42.2-75.2); HEMATOCRIT 32.9 % (37-47); MEAN CORPUSCULAR HGB 27.5 PG (27.0-31.0); MEAN CORPUSCULAR HGB CONC 32.5 G/DL (33.0-37.0); MEAN CORPUSCULAR VOLUME 84.7 FL (81.0-99.0); MEAN PLATELET VOLUME 7.7 FL (7.4-10.4); PLATELET COUNT 171 /CUMM (130-400); RBC DISTRIBUTION WIDTH 17.1 % (11.5-14.5); RED BLOOD CELL CT 3.89 /CUMM (4.20-5.40)
== END 2018-01-23 13:20 | DRG 775 ==
LOC: ERH 15:20 → ERHI 19:28 → 2NA 01-19 17:00 → CANBEDREQ 01-19 18:18 → ERHI 01-19 19:15 → ENRESERV 01-19 19:31 → ENTRNSPT 01-19 20:11 → 2NA 01-19 20:44 → CMPTRNSPT 01-20 07:31 → 2NA 01-21 08:49 → ENPENDDIS 01-23 09:55 → 2NA 01-23 13:20
PROVIDERS: Internal Medicine Endocrinology, Diabetes & Metabolism; Physician Assistant; Preventive Medicine Public Health & General Preventive Medicine
DX: F10.239 Alcohol dependence with withdrawal, unspecified (principal); K70.30 Alcoholic cirrhosis of liver without ascites; K70.10 Alcoholic hepatitis without ascites; Y90.8 Blood alcohol level of 240 mg/100 ml or more; E05.90 Thyrotoxicosis, unspecified without thyrotoxic crisis or storm; F43.10 Post-traumatic stress disorder, unspecified; F41.9 Anxiety disorder, unspecified; D64.9 Anemia, unspecified; R74.0 Nonspecific elevation of levels of transaminase and lactic acid dehydrogenase [LDH]; R80.9 Proteinuria, unspecified; R00.0 Tachycardia, unspecified
CPT/HCPCS: 2NASP; 36415; 36592; 80307; 81001; 81025; 82436; 82570; 93005; 93010; G0480; J1644; J2405; J2550; J3490

== ENCOUNTER 2018-02-22 10:17 | Observation (INO) | payer OTHER ==
[~2018-02-22 10:17] MED LIST changes: +DISULFIRAM250 M1 PO
--- NOTE | 2018-02-22 10:35 | ED PSYCHIATRIC COMPLAINT ---
History of Present Illness General Chief Complaint: ETOH/Drug Related Complaint Stated Complaint: ? etoh Source: patient, old records Exam Limitations: intoxication Vital Signs & Intake/Output Vital Signs & Intake/Output Vital Signs Date Time Temp Pulse Resp B/P B/P Pulse O2 O2 Flow FiO2 Mean Ox Delivery Rate 02/22 1440 98.5 90 16 116/75 02/22 1439 98.5 90 18 116/75 97 Room Air 02/22 1030 98.5 130 15 113/74 94 Room Air Room Air Allergies Coded Allergies: No Known Allergies (02/22/18) Reconcile Medications Disulfiram 250 MG TABLET 1 TAB PO DAILY alcohol use disorder . Ferrous Sulfate 325 MG (65 MG IRON) TABLET 1 TAB PO DAILY GI BLEED PLEASE TAKE WITH FOOD Folic Acid 1 MG TABLET 1 MG PO DAILY ALCOHOLISM . Multivitamin (One Daily Multivitamin) 1 EACH TABLET 1 TAB PO DAILY VITAMIN . Omeprazole 40 MG CAPSULE.DR 1 CAP PO DAILY gastric protection . Ondansetron HCl (Zofran) 8 MG TABLET 1 TAB PO TID PRN nausea Oxcarbazepine (Trileptal) 150 MG TABLET 150 MG PO BID seizures . Thiamine HCl (Vitamin B-1) 100 MG TABLET 100 MG PO DAILY ALCOHOLISM . Triage Note: PT TO ED REQUESTING ETOH DETOX. PT SLOW TO ANSWER QUESTIONS, BUT IS ANSWERING THEM APPROPRIATELY. STRONG SCENT OF ETOH ON PATIENT. REPORTS SHE DRINKS LESS THAN A PINT OF VODKA DAILY. HAS HAD WITHDRAWAL SEIZURES IN PAST. LAST SEIZURE WAS YESTERDAY PER PT. PT DENIES SI/HI. DENIES DRUG USE. Triage Nurses Notes Reviewed? yes Onset: Gradual Duration: getting worse Severity: severe Severity Numbers: 7 : No Patient currently breastfeeds: No HPI: Patient is a 32-year-old female with a past medical history of alcohol dependency, subarachnoid hemorrhage PTSD who was recently admitted and discharged from [facility] 1 month ago for alcohol dependency and withdrawal old records indicate the patient was to follow-up at [facility] after her discharge however she states that approximately 2 weeks ago she began drinking every day since. Patient states she took unknown significant amounts of alcohol today patient is requesting alcohol withdrawal evaluation and detox Patient denies any suicide or homicidal ideation, patient was in a private residence she walks to the emergency room, patient does not take any medications however she was advised to take Trileptal Patient does have a history of a local withdrawal seizures. Complaints of nausea and vomiting (Jordan Sun) Past History Travel History Traveled to [place] past 21 day No Medical History Any Pertinent Medical History? 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 No (Jordan Sun) Review of Systems Review of Systems Constitutional: Reports: see HPI. EENTM: Reports: no symptoms. Respiratory: Reports: no symptoms. Cardiovascular: Reports: no symptoms. GI: Reports: see HPI. Genitourinary: Reports: no symptoms. Musculoskeletal: Reports: no symptoms. Skin: Reports: no symptoms. Neurological/Psychological: Reports: see HPI. Hematologic/Endocrine: Reports: no symptoms. Immunologic/Allergic: Reports: no symptoms. All Other Systems: Reviewed and Negative (Jordan Sun) Physical Exam Physical Exam General Appearance: lethargic, intoxicated Head: atraumatic Eyes: Bilateral: normal appearance, PERRL, EOMI. 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 patient not suicidal (Jordan Sun) Progress Differential Diagnosis: drug intoxication, drug overdose, drug withdrawal, electrolyte abnormality, encephalitis, hypoglycemia, hypothyroidism, IC hem/mass /tumor, meningitis (Jordan Sun) Plan of Care: Orders Procedure Date/time Status Regular Diet 02/22 L Active Intake & Output 02/[address] in observation 02/22 1245 Active ED Holding Orders 02/22 1245 Active Patient Data 02/22 1245 Active Vital Signs 02/22 1245 Active Code Status 02/22 1245 Active CIWA 02/22 1034 Active URINE 02/22 1034 Complete URINE DRUG SCREEN FOR ER ONLY 02/22 1034 Complete LIPASE 02/22 1034 Complete ETHANOL 02/22 1034 Complete COMPREHENSIVE METABOLIC PANEL 02/22 1034 Complete CBC WITHOUT DIFFERENTIAL 02/22 1034 Complete Discharge Patient 02/22 UNK Active Laboratory Tests 02/22/18 1133: Anion Gap 30 H, Estimated GFR > 60, BUN/Creatinine Ratio 20.0, Glucose 87, Calcium 8.8, Total Bilirubin 0.3, AST 68 H, ALT 44, Alkaline Phosphatase 77, Total Protein 7.8, Albumin 4.9, Globulin 2.9, Albumin/Globulin Ratio 1.7, Lipase 168, CBC w Diff NO MAN DIFF REQ, RBC 4.37, MCV 83.0, MCH 27.6, MCHC 33.3, RDW 17.6 H, MPV 6.5 L, Gran % 74.7, Lymphocytes % 22.4, Monocytes % 1.7, Eosinophils % 0, Basophils % 1.2, Absolute Granulocytes 3.7, Absolute Lymphocytes 1.1 L, Absolute Monocytes 0.1, Absolute Eosinophils 0, Absolute Basophils 0.1, Serum Alcohol 397.0 02/22/18 1108: Urine Opiates Screen < 100, Methadone Screen < 40, Barbiturate Screen < 60, Ur Phencyclidine Scrn < 6.00, Amphetamines Screen < 100, U Benzodiazepines Scrn > 800 H, Urine Cocaine Screen < 50, Urine Cannabis Screen < 5.00, Urine Test NEGATIVE Patient noted to be still nauseous however no vomiting has occurred after by mouth intake patient's alcohol was 400 patient will be observed in the emergency room and will be placed in observation for alcohol withdrawal no signs of withdrawal at this time 1501- patient became alert and oriented and at capacity make decisions Patient requested Ativan however per hospital policy this was not administered due to patient not requiring this medication Patient requested to leave the emergency room patient is not a threat to herself and others had normal steady gait and will receive a ride home as she called for ride Please note that nursing staff indicates the patient had a ride, to patient's bedside who will take patient home Had a long extensive conversation with patient IF symptoms worsen to return to emergency room as alcohol withdrawal is a significant consultation and she will comply (Jordan Sun) (Caleb HOU,Jovan Avilez) Departure Departure Disposition: HOME OR SELF CARE Condition: Stable Clinical Impression Primary Impression: Alcohol dependence Referrals: Joel Maldonado MD (PCP/Family) Additional Instructions: As discussed please follow-up with your psychiatrist and follow-up with [facility] Continue home medications If symptoms worsen or if he develop a concerning symptom return to emergency room Departure Forms: Customer Survey General Discharge Information (Jordan Sun) PA/CHEMICAL ENGINEERING TECHNICIAN Co-Sign Statement Statement: ED Attending supervision documentation- [X] I saw and evaluated the patient. I have also reviewed all the pertinent lab results and diagnostic results. I agree with the findings and the plan of care as documented in the PA's/CHEMICAL ENGINEERING TECHNICIAN's documentation. [X] I have reviewed the ED Record and agree with the PA's/CHEMICAL ENGINEERING TECHNICIAN's documentation. [] Additions or exceptions (if any) to the PAs/CHEMICAL ENGINEERING TECHNICIAN's note and plan are summarized below: [] (Caleb HOU,Jovan Avilez) PA/CHEMICAL ENGINEERING TECHNICIAN Co-Sign Statement Statement: ED Attending supervision documentation- [] I saw and evaluated the patient. I have also reviewed all the pertinent lab results and diagnostic results. I agree with the findings and the plan of care as documented in the PA's/CHEMICAL ENGINEERING TECHNICIAN's documentation. [] I have reviewed the ED Record and agree with the PA's/CHEMICAL ENGINEERING TECHNICIAN's documentation. [] Additions or exceptions (if any) to the PAs/CHEMICAL ENGINEERING TECHNICIAN's note and plan are summarized below: [] (Luis Valverde DO) Critical Care Note Critical Care Note Critical Care Time: 30-74 min (Jordan Sun) ED Attending Observation Initial Observation Note: I have seen and personally examined BERNADINE VILLANUEVA on 02/22/18 at 1245. I agree with the current emergency department documentation. The disposition (admission or discharge) is uncertain at this time, she needs a period of observation for the following reason(s): [Patient requesting alcohol detox. Patient does have history of alcohol withdrawal seizures. Patient is heavily intoxicated currently. Patient will need very close monitoring. Unsure at this point if the patient will meet criteria for medical detox or if she will be stable for discharge with follow-up at a detox facility.] The ED Nurse caring for this patient has been personally informed as to what the patient is being observed for. Observation Re-Evaluation: I have reevaluated BERNADINE VILLANUEVA on 02/22/18 at 1501. The physical findings that support the continued need to observe this patient include [patient is requesting Ativan. Patient's CIWA does not indicate that she meets the criteria for benzodiazepines. This was advised to the patient. Patient now wants to go home. Patient is awake alert and oriented 3. Patient denies any suicidal or homicidal ideations. Patient is attempting to call for a ride.]. Observation Discharge: I have reevaluated BERNADINE VILLANUEVA on 02/22/18 at 1550. The patient is: ([X]): Stable for discharge (): To be admitted to Nursing Floor (): To be placed in Observation on Nursing Floor (): For transfer to other facility The patient was being observed for [alcohol dependency and acute withdrawal] As a result of that observation, I have determined [patient is clinically sober and no longer wants to stay for alcohol withdrawal.]. (Caleb HOU,Jovan Avilez) Initial Observation Note: I have seen and personally examined BERNADINE VILLANUEVA on 02/22/18 at 1513. I agree with the current emergency department documentation. The disposition (admission or discharge) is uncertain at this time, she needs a period of observation for the following reason(s): The ED Nurse caring for this patient has been personally informed as to what the patient is being observed for. I saw and personally examined the patient and I agree with the PAs evaluation (Luis Valverde DO)
[2018-02-22 11:41] LABS: ABSOLUTE BASOPHIL COUNT 0.1 /CUMM (0.0-0.2); ABSOLUTE EOSINOPHIL COUNT 0 /CUMM (0.0-0.7); ABSOLUTE GRANULOCYTE CT 3.7 /CUMM (1.4-6.5); ABSOLUTE LYMPH COUNT 1.1 /CUMM (1.2-3.4); ABSOLUTE MONOCYTE COUNT 0.1 /CUMM (0.10-0.60); BASOPHIL % 1.2 % (0.0-2.0); EOSINOPHIL % 0 % (0-5); GRANULOCYTE % 74.7 % (42.2-75.2); HEMATOCRIT 36.3 % (37-47); MEAN CORPUSCULAR HGB 27.6 PG (27.0-31.0); MEAN CORPUSCULAR HGB CONC 33.3 G/DL (33.0-37.0); MEAN PLATELET VOLUME 6.5 FL (7.4-10.4); PLATELET COUNT 315 /CUMM (130-400); RBC DISTRIBUTION WIDTH 17.6 % (11.5-14.5); RED BLOOD CELL CT 4.37 /CUMM (4.20-5.40)
[2018-02-22 14:40] VITALS: BP 116/75
== END 2018-02-22 15:41 | disposition admitted as inpatient to this hospital (09) ==
LOC: ERH 10:17 → ERHI 12:45
PROVIDERS: Physician Assistant
DX: F10.239 Alcohol dependence with withdrawal, unspecified (principal); R56.9 Unspecified convulsions; F43.10 Post-traumatic stress disorder, unspecified; R74.0 Nonspecific elevation of levels of transaminase and lactic acid dehydrogenase [LDH]; R80.9 Proteinuria, unspecified; D64.9 Anemia, unspecified; F32.9 Major depressive disorder, single episode, unspecified; F41.9 Anxiety disorder, unspecified; K74.60 Unspecified cirrhosis of liver; F39 Unspecified mood [affective] disorder
CPT/HCPCS: 80307; 81025; 96375; 96376; G0378; G0480; J3101

== ENCOUNTER 2018-02-24 10:34 | Inpatient (IN) | payer OTHER ==
[~2018-02-24] VITALS: Ht 172.7 cm; Wt 56.8 kg
[2018-02-24] VITALS (7 sets, daily range): BP systolic 118–129; BP diastolic 59–93
--- NOTE | 2018-02-24 10:40 | ED GENERAL ADULT ---
See Addendum History of Present Illness General Chief Complaint: ETOH/Drug Related Complaint Stated Complaint: ETOH Source: patient, old records, EMS Exam Limitations: intoxication Vital Signs & Intake/Output Vital Signs & Intake/Output Vital Signs Date Time Temp Pulse Resp B/P B/P Pulse O2 O2 Flow FiO2 Mean Ox Delivery Rate 02/24 1726 Room Air 02/24 1630 97.6 82 18 129/87 02/24 1630 97.6 92 18 129/87 98 Room Air 02/24 1433 97.7 110 18 127/93 98 Room Air Room Air 02/24 1430 97.7 110 18 127/93 02/24 1235 97.9 82 16 118/70 02/24 1234 97.9 82 16 118/70 97 Room Air 02/24 1050 96 Room Air 02/24 1047 98.4 97 18 120/74 02/24 1047 98.4 97 18 120/74 95 Room Air Room Air Allergies Coded Allergies: No Known Allergies (02/22/18) Reconcile Medications Disulfiram 250 MG TABLET 1 TAB PO DAILY alcohol use disorder . Ferrous Sulfate 325 MG (65 MG IRON) TABLET 1 TAB PO DAILY GI BLEED PLEASE TAKE WITH FOOD Folic Acid 1 MG TABLET 1 MG PO DAILY ALCOHOLISM . Multivitamin (One Daily Multivitamin) 1 EACH TABLET 1 TAB PO DAILY VITAMIN . Omeprazole 40 MG CAPSULE.DR 1 CAP PO DAILY gastric protection . Ondansetron HCl (Zofran) 8 MG TABLET 1 TAB PO TID PRN nausea Oxcarbazepine (Trileptal) 150 MG TABLET 150 MG PO BID seizures . Thiamine HCl (Vitamin B-1) 100 MG TABLET 100 MG PO DAILY ALCOHOLISM . Triage Nurses Notes Reviewed? yes HPI: Patient was pulled over for driving under the influence. Patient told the officer that she wanted alcohol detox and so EMS was called and the patient was brought to the hospital. Patient denies coingestion. Patient does have a history of alcohol withdrawal seizures. Patient was last admitted in January for alcohol withdrawal but she began drinking upon discharge. Patient denies any suicidal or homicidal ideations. Past History Medical History Any Pertinent Medical History? 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 No Review of Systems Review of Systems Constitutional: Reports: no symptoms. EENTM: Reports: no symptoms. Respiratory: Reports: no symptoms. Cardiovascular: Reports: no symptoms. GI: Reports: no symptoms. Genitourinary: Reports: no symptoms. Musculoskeletal: Reports: no symptoms. Skin: Reports: no symptoms. Neurological/Psychological: Reports: no symptoms. Hematologic/Endocrine: Reports: no symptoms. Immunologic/Allergic: Reports: no symptoms. All Other Systems: Reviewed and Negative Physical Exam Physical Exam General Appearance: intoxicated Head: atraumatic Eyes: Bilateral: PERRL, EOMI, other (SLUGGISH). Core Measures ACS in differential dx? No CVA/TIA Diagnosis: No Sepsis Present: No Sepsis Focused Exam Completed? No Progress Differential Diagnoses I considered the following diagnoses in my evaluation of the patient: [Alcohol dependency and acute withdrawal, alcohol intoxication] Plan of Care: Orders Procedure Date/time Status Regular Diet 02/24 L Active Intake & Output 02/[address] in observation 02/24 1040 Active ED Holding Orders 02/24 1040 Active Patient Data 02/24 1040 Active Vital Signs 02/24 1040 Active Code Status 02/24 1040 Active CIWA 02/24 1037 Active URINE DRUGS OF ABUSE 02/24 1037 Complete URINALYSIS 02/24 1037 Complete HUMAN BETA HCG SCREEN 02/24 1037 Complete ETHANOL 02/24 1037 Complete COMPREHENSIVE METABOLIC PANEL 02/24 1037 Complete CBC WITHOUT DIFFERENTIAL 02/24 1037 Complete Laboratory Tests 02/24/18 1406: Urine Opiates Screen < 100, Methadone Screen < 40, Barbiturate Screen < 60, Ur Phencyclidine Scrn < 6.00, Amphetamines Screen < 100, U Benzodiazepines Scrn > 800 H, Urine Cocaine Screen < 50, Urine Cannabis Screen < 5.00, Urine Color YEL , Urine Clarity HAZY H, Urine pH 6.0, Ur Specific Grover 1.025, Urine Protein >=300 H, Urine Ketones 15 H, Urine Nitrite NEG, Urine Bilirubin NEG, Urine Urobilinogen 0.2, Ur Leukocyte Esterase NEG, Ur Microscopic SEDIMENT EXAMINED, Urine RBC 1-3, Urine WBC RARE, Ur Epithelial Cells FEW, Urine Bacteria PACKD H, Hyaline Casts RARE H, Urine Hemoglobin MOD H, Urine Glucose NEG 02/24/18 1040: Anion Gap 21 H, Estimated GFR > 60, BUN/Creatinine Ratio 20.0, Glucose 112 H, Calcium 8.6, Total Bilirubin 0.7, AST 224 H, ALT 127 H, Alkaline Phosphatase 89, Total Protein 8.1, Albumin 4.9, Globulin 3.2, Albumin/Globulin Ratio 1.5, Total Beta HCG NEGATIVE, CBC w Diff NO MAN DIFF REQ, RBC 4.79, MCV 82.7, MCH 27.2, MCHC 32.9 L, RDW 18.0 H, MPV 6.6 L, Gran % 57.5, Lymphocytes % 35.2, Monocytes % 6.1, Eosinophils % 0.2, Basophils % 1.0, Absolute Granulocytes 3.4, Absolute Lymphocytes 2.1, Absolute Monocytes 0.4, Absolute Eosinophils 0, Absolute Basophils 0.1, Serum Alcohol 494.0 Initial ED EKG: none Hand-Off Endorsed To: Riley Valenzuela MD Endorsed Time: 1899 Pending: other (CIWA) Departure Departure Disposition: STILL A PATIENT Condition: Stable Clinical Impression Primary Impression: Alcohol dependency Secondary Impressions: Alcohol intoxication Referrals: Joel Maldonado MD (PCP/Family) Departure Forms: Customer Survey General Discharge Information Critical Care Note Critical Care Note Critical Care Time: non-applicable ED Attending Observation Initial Observation Note: I have seen and personally examined BERNADINE VILLANUEVA on 02/24/18 at 1040. I agree with the current emergency department documentation. The disposition (admission or discharge) is uncertain at this time, she needs a period of observation for the following reason(s): [Patient brought to the emergency department requesting alcohol detox. Patient is heavily intoxicated. Patient will need very close monitoring given her history of alcohol withdrawal seizures. Unsure at this point if the patient will require admission or if she will be stable for outpatient detox.] The ED Nurse caring for this patient has been personally informed as to what the patient is being observed for. Observation Re-Evaluation: I have reevaluated BERNADINE VILLANUEVA on 02/24/18 at 1828. The physical findings that support the continued need to observe this patient include [patient is feeling anxious however her CIWA score remains low. We will continue to closely monitor.].
[2018-02-24 10:46] LABS: ABSOLUTE BASOPHIL COUNT 0.1 /CUMM (0.0-0.2); ABSOLUTE EOSINOPHIL COUNT 0 /CUMM (0.0-0.7); ABSOLUTE GRANULOCYTE CT 3.4 /CUMM (1.4-6.5); ABSOLUTE LYMPH COUNT 2.1 /CUMM (1.2-3.4); ABSOLUTE MONOCYTE COUNT 0.4 /CUMM (0.10-0.60); EOSINOPHIL % 0.2 % (0-5); GRANULOCYTE % 57.5 % (42.2-75.2); HEMATOCRIT 39.6 % (37-47); MEAN CORPUSCULAR HGB 27.2 PG (27.0-31.0); MEAN CORPUSCULAR HGB CONC 32.9 G/DL (33.0-37.0); MEAN CORPUSCULAR VOLUME 82.7 FL (81.0-99.0); MEAN PLATELET VOLUME 6.6 FL (7.4-10.4); PLATELET COUNT 266 /CUMM (130-400); RED BLOOD CELL CT 4.79 /CUMM (4.20-5.40); WHITE BLOOD CELL COUNT 5.9 /CUMM (4.8-10.8)
[2018-02-25] VITALS (14 sets, daily range): BP systolic 92–136; BP diastolic 60–86
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
[2018-02-26] VITALS (8 sets, daily range): BP systolic 92–112; BP diastolic 60–80
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
[2018-02-27] VITALS (9 sets, daily range): BP systolic 92–108; BP diastolic 58–86
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
[2018-02-28 06:32] VITALS: BP 92/54
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
[2018-02-28 11:41] VITALS: BP 118/58
[2018-02-28 14:42] VITALS: BP 110/62
[2018-02-28 17:40] LABS: ABSOLUTE BASOPHIL COUNT 0 /CUMM (0.0-0.2); ABSOLUTE EOSINOPHIL COUNT 0 /CUMM (0.0-0.7); ABSOLUTE GRANULOCYTE CT 3.8 /CUMM (1.4-6.5); ABSOLUTE LYMPH COUNT 1.3 /CUMM (1.2-3.4); ABSOLUTE MONOCYTE COUNT 0.2 /CUMM (0.10-0.60); BASOPHIL % 0.4 % (0.0-2.0); WHITE BLOOD CELL COUNT 5.4 /CUMM (4.8-10.8)
[2018-02-28 17:47] LABS: EOSINOPHIL % 0.7 % (0-5); GRANULOCYTE % 70.1 % (42.2-75.2); MEAN CORPUSCULAR HGB 27.3 PG (27.0-31.0); MEAN CORPUSCULAR HGB CONC 32.7 G/DL (33.0-37.0); MEAN CORPUSCULAR VOLUME 83.4 FL (81.0-99.0); MEAN PLATELET VOLUME 8.1 FL (7.4-10.4); PLATELET COUNT 149 /CUMM (130-400); RBC DISTRIBUTION WIDTH 17.7 % (11.5-14.5); RED BLOOD CELL CT 4.03 /CUMM (4.20-5.40)
[2018-02-28 17:48] LABS: HEMATOCRIT 33.6 % (37-47)
[2018-02-28 21:07] VITALS: BP 92/64
[2018-03-01 07:26] VITALS: BP 98/62
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
[2018-03-01 14:13] VITALS: BP 102/74
[2018-03-01] MEDS ORDERED: TRILEPTAL150 M1 PO (16:04)
[2018-03-01] MEDS ORDERED: MACROBID 100 M100 MG PO (16:04)
--- NOTE | 2018-03-01 16:05 | Patient Discharge Instructions ---
Discharge Instructions General Discharge Information You were seen/treated for: Alcohol withdrawal You had these procedures: No procedure was performed Watch for these problems: Fever, chest pain, shortness of breath Special Instructions: Please complete antibiotics as instructed. Please follow-up with IOP on 03/04/2018. Please follow-up with PCP. Diet Continue normal diet: Yes Activity Full Activity/No Limits: Yes Acute Coronary Syndrome Inclusion Criteria At DC or during hospital stay patient has or had the following: ACS DIAGNOSIS No Discharge Core Measures Meds if any: Prescribed or Continued at Discharge Meds if any: NOT Prescribed or Continued at Discharge Congestive Heart Failure Inclusion Criteria At DC or during hospital stay patient has or had the following: CHF DIAGNOSIS No Discharge Core Measures Meds if any: Prescribed or Continued at Discharge Meds if any: NOT Prescribed or Continued at Discharge Cerebrovascular accident Inclusion Criteria At DC or during hospital stay patient has or had the following: CVA/TIA Diagnosis No Discharge Core Measures Meds if any: Prescribed or Continued at Discharge Meds if any: NOT Prescribed or Continued at Discharge Venous thromboembolism Inclusion Criteria VTE Diagnosis No VTE Type NONE VTE Confirmed by (Test) NONE Discharge Core Measures - Per Current guidelines, there needs to be overlap - treatment for the first 5 days of Warfarin therapy. - If discharged on Warfarin prior to 5 days of - overlap therapy, the patient will need to be - assessed for post discharge needs including - *Post discharge parental anticoagulation - *Warfarin and/or parental anticoagulation education - *Follow up date to check INR post discharge At least 5 days overlap therapy as Inpatient Yes Meds if any: Prescribed or Continued at Discharge Note: Overlap Therapy is Warfarin and Anticoagulant Meds if any: NOT Prescribed or Continued at Discharge
[2018-03-01 22:00] VITALS: BP 84/62; BP 94/58
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
[2018-03-02 06:26] VITALS: BP 96/60
[2018-03-02] MEDS ORDERED: ZOFRAN8 M1 PO (07:13)
[2018-03-02] MEDS ORDERED: CELEBREX200 M1 PO (07:13)
[2018-03-02] MEDS ORDERED: MACROBID 100 M100 MG PO (07:14)
[2018-03-02] MEDS ORDERED: TRILEPTAL150 M1 PO (07:14)
[2018-03-02] MEDS ORDERED: PROMETHAZINE12.5 M2 PO (10:09)
== END 2018-03-02 11:13 | DRG 775 ==
LOC: ERH 10:34 → ERHI 10:40 → ERH 10:40 → ERHI 10:40 → 2NB 02-25 11:44 → ERHI 02-25 11:44 → EDBEDREQ 02-25 14:19 → ERHI 02-25 14:30 → ENRESERV 02-25 15:38 → ENTRNSPT 02-25 15:58 → EDTRNSPT 02-25 15:59 → EDTRNSPTSTS 02-25 16:23 → EDTRNSPT 02-25 16:23 → CMPTRNSPT 02-25 16:27 → ENPENDDIS 03-02 10:27 → 2NB 03-02 11:13
PROVIDERS: Emergency Medicine; Hospitalist
DX: F10.239 Alcohol dependence with withdrawal, unspecified (principal); Y90.8 Blood alcohol level of 240 mg/100 ml or more; K74.60 Unspecified cirrhosis of liver; F41.9 Anxiety disorder, unspecified; F32.9 Major depressive disorder, single episode, unspecified; E03.9 Hypothyroidism, unspecified; R51 Headache; F39 Unspecified mood [affective] disorder; V47.5XXA Car driver injured in collision with fixed or stationary object in traffic accident, initial encounter; Y92.410 Unspecified street and highway as the place of occurrence of the external cause; Z98.82 Breast implant status; K21.9 Gastro-esophageal reflux disease without esophagitis; R74.0 Nonspecific elevation of levels of transaminase and lactic acid dehydrogenase [LDH]; N39.0 Urinary tract infection, site not specified; B96.20 Unspecified Escherichia coli [E. coli] as the cause of diseases classified elsewhere
CPT/HCPCS: 36592; 80307; 81001; 82436; 87086; 96374; G0480; J1650; J2405; J2550; J3101; J3490

== ENCOUNTER 2018-03-10 11:57 | Inpatient (IN) | payer OTHER ==
[~2018-03-10] VITALS: Ht 172.7 cm; Wt 60.1 kg
[~2018-03-10 11:57] MED LIST changes: +CELEBREX200 M1 PO; +MACROBID 100 M100 MG PO; +PROMETHAZINE12.5 M2 PO
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
[2018-03-10 12:39] LABS: ABSOLUTE BASOPHIL COUNT 0.1 /CUMM (0.0-0.2); ABSOLUTE EOSINOPHIL COUNT 0 /CUMM (0.0-0.7); ABSOLUTE GRANULOCYTE CT 2.5 /CUMM (1.4-6.5); ABSOLUTE LYMPH COUNT 1.5 /CUMM (1.2-3.4); ABSOLUTE MONOCYTE COUNT 0.1 /CUMM (0.10-0.60); BASOPHIL % 2.1 % (0.0-2.0); EOSINOPHIL % 0.2 % (0-5); GRANULOCYTE % 58.7 % (42.2-75.2); HEMATOCRIT 34.7 % (37-47); MEAN CORPUSCULAR HGB 27.4 PG (27.0-31.0); MEAN PLATELET VOLUME 5.9 FL (7.4-10.4); PLATELET COUNT 448 /CUMM (130-400); RBC DISTRIBUTION WIDTH 18.7 % (11.5-14.5); RED BLOOD CELL CT 4.18 /CUMM (4.20-5.40); WHITE BLOOD CELL COUNT 4.3 /CUMM (4.8-10.8)
--- NOTE | 2018-03-10 17:55 | CT SCAN REPORT ---
EXAMINATION: CT HEAD WITHOUT CONTRAST CLINICAL INFORMATION: Confusion, altered mental status COMPARISON: Head CT 12/14/2017. TECHNIQUE: Contiguous axial imaging was performed from the skull base to vertex without intravenous administration of contrast. DLP: 636 mGy-cm FINDINGS: There is no evidence of acute intracranial hemorrhage or territorial infarction. No abnormal mass effect or midline shift is seen. Bernard to white matter differentiation is well preserved. No extra-axial fluid collections are identified. The ventricles are normal in size. There is no new abnormal attenuation within the brain parenchyma. The osseous structures and soft tissues are unremarkable. The mastoid air cells and visualized portions of the paranasal sinuses are well aerated. IMPRESSION: No acute intracranial pathology.
[2018-03-10 21:00] VITALS: BP 88/60
[2018-03-10 23:04] VITALS: BP 105/65
[2018-03-11] VITALS (16 sets, daily range): BP systolic 100–123; BP diastolic 60–80
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
[2018-03-12] VITALS (9 sets, daily range): BP systolic 100–116; BP diastolic 60–80
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
[2018-03-13] VITALS (12 sets, daily range): BP systolic 100–112; BP diastolic 60–94
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
[2018-03-14] VITALS (11 sets, daily range): BP systolic 110–125; BP diastolic 60–81
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
[2018-03-15] VITALS (8 sets, daily range): BP systolic 100–110; BP diastolic 56–76
[2018-03-15] MEDS ORDERED: HYDROXYZINE HCL50 M1 PO ×2 (00:50→09:49)
[2018-03-15] MEDS ORDERED: GABAPENTIN300 M2 PO ×2 (00:50→09:49)
--- NOTE | 2018-03-15 00:52 | Patient Discharge Instructions ---
Discharge Instructions General Discharge Information You were seen/treated for: alcohol withdrawal Special Instructions: follow up with pcp in one week follow up with psychiatrist/alcohol rehab Diet Continue normal diet: Yes Activity Full Activity/No Limits: Yes Acute Coronary Syndrome Inclusion Criteria At DC or during hospital stay patient has or had the following: ACS DIAGNOSIS No Discharge Core Measures Meds if any: Prescribed or Continued at Discharge Meds if any: NOT Prescribed or Continued at Discharge Congestive Heart Failure Inclusion Criteria At DC or during hospital stay patient has or had the following: CHF DIAGNOSIS No Discharge Core Measures Meds if any: Prescribed or Continued at Discharge Meds if any: NOT Prescribed or Continued at Discharge Cerebrovascular accident Inclusion Criteria At DC or during hospital stay patient has or had the following: CVA/TIA Diagnosis No Discharge Core Measures Meds if any: Prescribed or Continued at Discharge Meds if any: NOT Prescribed or Continued at Discharge Venous thromboembolism Inclusion Criteria VTE Diagnosis No VTE Type NONE VTE Confirmed by (Test) NONE Discharge Core Measures - Per Current guidelines, there needs to be overlap - treatment for the first 5 days of Warfarin therapy. - If discharged on Warfarin prior to 5 days of - overlap therapy, the patient will need to be - assessed for post discharge needs including - *Post discharge parental anticoagulation - *Warfarin and/or parental anticoagulation education - *Follow up date to check INR post discharge At least 5 days overlap therapy as Inpatient No Meds if any: Prescribed or Continued at Discharge Note: Overlap Therapy is Warfarin and Anticoagulant Meds if any: NOT Prescribed or Continued at Discharge
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
[2018-03-15 08:29] LABS: ABSOLUTE BASOPHIL COUNT 0 /CUMM (0.0-0.2); ABSOLUTE EOSINOPHIL COUNT 0 /CUMM (0.0-0.7); ABSOLUTE GRANULOCYTE CT 2.7 /CUMM (1.4-6.5); ABSOLUTE LYMPH COUNT 1.6 /CUMM (1.2-3.4); ABSOLUTE MONOCYTE COUNT 0.3 /CUMM (0.10-0.60); BASOPHIL % 0.6 % (0.0-2.0); EOSINOPHIL % 1.1 % (0-5); GRANULOCYTE % 58.1 % (42.2-75.2); MEAN CORPUSCULAR HGB CONC 32.9 G/DL (33.0-37.0); MEAN CORPUSCULAR VOLUME 85.2 FL (81.0-99.0); MEAN PLATELET VOLUME 7.1 FL (7.4-10.4); PLATELET COUNT 279 /CUMM (130-400); RBC DISTRIBUTION WIDTH 18.5 % (11.5-14.5); RED BLOOD CELL CT 3.88 /CUMM (4.20-5.40); WHITE BLOOD CELL COUNT 4.7 /CUMM (4.8-10.8)
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
[2018-03-16] VITALS (13 sets, daily range): BP systolic 102–166; BP diastolic 60–88
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
[2018-03-16] MEDS ORDERED: GABAPENTIN300 M2 PO (09:48)
[2018-03-16] MEDS ORDERED: HYDROXYZINE HCL50 M1 PO (09:48)
[2018-03-17 02:00] VITALS: BP 110/60
[2018-03-17 06:00] VITALS: BP 116/58
[2018-03-17 07:25] VITALS: BP 116/58
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
== END 2018-03-17 13:00 | DRG 775 ==
LOC: DELPENDDIS → ERH 11:57 → 2NA 03-11 11:25 → ERHI 03-11 11:25 → ENRESERV 03-11 11:50 → ENTRNSPT 03-11 13:00 → EDTRNSPTSTS 03-11 13:07 → EDTRNSPT 03-11 13:07 → 2NA 03-11 13:17 → CMPTRNSPT 03-11 13:20 → ENPENDDIS 03-16 09:51 → 2NA 03-17 13:00
PROVIDERS: Physician Assistant Medical; Student in an Organized Health Care Education/Training Program
DX: F10.239 Alcohol dependence with withdrawal, unspecified (principal); E87.2 Acidosis; F31.9 Bipolar disorder, unspecified; K70.10 Alcoholic hepatitis without ascites; Y90.8 Blood alcohol level of 240 mg/100 ml or more; E05.90 Thyrotoxicosis, unspecified without thyrotoxic crisis or storm; S00.12XA Contusion of left eyelid and periocular area, initial encounter; W19.XXXA Unspecified fall, initial encounter; F19.11 Other psychoactive substance abuse, in remission; F41.9 Anxiety disorder, unspecified; Z87.81 Personal history of (healed) traumatic fracture
CPT/HCPCS: 2NAP; 36415; 36592; 80307; 81025; 82436; 93005; 93010; G0480; J1644; J2405; J2550; J3101; J3490

== ENCOUNTER 2018-05-02 16:18 | Emergency (ER) | payer OTHER ==
[~2018-05-02] VITALS: Ht 172.7 cm; Wt 60.3 kg
[~2018-05-02 16:18] MED LIST changes: +GABAPENTIN300 M2 PO; +HYDROXYZINE HCL50 M1 PO
--- NOTE | 2018-05-02 17:05 | ED PSYCHIATRIC COMPLAINT ---
History of Present Illness General Chief Complaint: Psychiatric Related Complaint Stated Complaint: BIBA DEPRESSION/ANXIETY Source: patient, old records Exam Limitations: no limitations Vital Signs & Intake/Output Vital Signs & Intake/Output Vital Signs Date Time Temp Pulse Resp B/P B/P Pulse O2 O2 Flow FiO2 Mean Ox Delivery Rate 05/02 2000 98.2 82 18 109/67 05/02 1958 98.2 82 18 109/67 100 Room Air 05/02 1847 98.7 118 18 107/64 97 05/02 1629 97.5 92 20 121/74 96 Room Air Allergies Coded Allergies: No Known Allergies (02/22/18) Reconcile Medications Celecoxib (Celebrex) 200 MG CAPSULE 200 MG PO BID HEADACHE Ferrous Sulfate 325 MG (65 MG IRON) TABLET 1 TAB PO DAILY GI BLEED PLEASE TAKE WITH FOOD Folic Acid 1 MG TABLET 1 MG PO DAILY ALCOHOLISM . Gabapentin 300 MG CAPSULE 300 MG PO Q8 anxiety .. Hydroxyzine Hydrochloride (Atarax) 50 MG TAB 50 MG PO TID PRN ANXIETY .. Multivitamin (One Daily Multivitamin) 1 EACH TABLET 1 TAB PO DAILY VITAMIN . Omeprazole 40 MG CAPSULE.DR 1 CAP PO DAILY gastric protection . Oxcarbazepine (Trileptal) 150 MG TABLET 300 MG PO BID Mood Disorder . Promethazine HCl 12.5 MG TABLET 1 TAB PO Q6 PRN nausea Thiamine HCl (Vitamin B-1) 100 MG TABLET 100 MG PO DAILY ALCOHOLISM . Triage Note: BIBA FROM HOME WITH REPORTS OF DEPRESSION AND ALCOHOL WITHDRAWL. PATIENT DENIES SI/HI. PATIENT REPORTS STOPPING PRYSTIQUE 1 WEEK AGO AND HAS BEEN FEELING DEPRESSED SINCE. REQUESTING ALCOHOL DETOX. Triage Nurses Notes Reviewed? yes Onset: Gradual : No Patient currently breastfeeds: No HPI: 33-year-old female with history of depression, anxiety, substance abuse brought in by ambulance for depression and anxiety. Patient states that her friend called the ambulance for her because they were concerned. Patient admits to drinking alcohol earlier this morning however she cannot quantify the amount. She states that she feels "terrible right now" as if she is going through withdrawal. She also reports increasing anxiety and depression. The patient denies suicidality. She denies HI, drug use, abdominal pain, vomiting. (Janet NASSAR,Britt Ramos) Past History Travel History Traveled to [place] past 21 day No Medical History Any Pertinent Medical History? see below for history Neurological: migraine, SEIZURE WITHDRAWL HEAD CONCUSSION EENT: NONE Cardiovascular: NONE Respiratory: bronchitis Gastrointestinal: constipation, pancreatitis Hepatic: ST 1 LIVER CIRRHOSIS Renal: NONE Musculoskeletal: FRACTURE R ARM Psychiatric: alcohol dependence, anxiety, depression Endocrine: hyperthyroidism Blood Disorders: anemia Cancer(s): NONE CAKE ICER/Reproductive: miscarriage, STILLBORN DELIVERY History of MRSA: No History of VRE: No History of CDIFF: No Tetanus Vaccine: 02/14/12 Surgical History Surgical History: 2 C-SECTIONS, SELINA breast augmentation, fractured right arm surgery BUNION REMOVAL BOTH FEET PINS TO BOTH FEET TONSILLECTOMY Psychosocial History Who do you live with Patient/Self Services at Home None What is your primary language Romansh Tobacco Use: Current Daily Use Daily Tobacco Use Amount/Type: => 5 Cigarettes daily ETOH Use: alcoholic Illicit Drug Use: denies illicit drug use Family History Family History, If Any: MOTHER FATHER Hx Contributory? No (Britt Correa) Review of Systems Review of Systems Constitutional: Reports: no symptoms. EENTM: Reports: no symptoms. Respiratory: Reports: no symptoms. Cardiovascular: Reports: no symptoms. GI: Reports: no symptoms. Genitourinary: Reports: no symptoms. Musculoskeletal: Reports: no symptoms. Skin: Reports: no symptoms. Neurological/Psychological: Reports: see HPI. Hematologic/Endocrine: Reports: no symptoms. Immunologic/Allergic: Reports: no symptoms. All Other Systems: Reviewed and Negative (Britt Correa) Physical Exam Physical Exam General Appearance: well developed/nourished, no apparent distress, alert, awake , intoxicated Head: atraumatic, normal appearance Eyes: Bilateral: normal appearance, PERRL, EOMI. Ears, Nose, Throat: hearing grossly normal Neck: normal inspection, supple, full range of motion Respiratory: normal breath sounds, no respiratory distress, lungs clear Cardiovascular: regular rate/rhythm Gastrointestinal: normal bowel sounds, soft, non-tender Extremities: normal range of motion Neurological/Psychiatric: awake, alert, tearfull Appearance/Memory/Insight: disheveled Behavoir/Eye Contact/Speech: avoids eye contact, cooperative Thoughts/Hallucinations: no apparent hallucination Skin: intact, normal color, warm/dry SAD PERSONS Done? patient not suicidal (Britt Correa) Progress Differential Diagnosis: drug intoxication, drug overdose, drug withdrawal, depression, alcohol intoxication Plan of Care: Orders Procedure Date/time Status CIWA 05/02 165 Active URINE 05/02 165 Complete ED CRISIS PSYCH CONSULT 05/02 165 Active ETHANOL 05/02 163 Complete COMPREHENSIVE METABOLIC PANEL 05/02 1639 Complete CBC WITHOUT DIFFERENTIAL 05/02 163 Complete URINE DRUG SCREEN FOR ER ONLY 05/02 163 Complete URINALYSIS 05/02 163 Complete Laboratory Tests 05/02/18 1744: Anion Gap 15, Estimated GFR > 60, BUN/Creatinine Ratio 21.7, Glucose 88, Calcium 8.8, Total Bilirubin 0.3, AST 99 H, ALT 63 H, Alkaline Phosphatase 97, Total Protein 7.5, Albumin 4.7, Globulin 2.8, Albumin/Globulin Ratio 1.7, CBC w Diff NO MAN DIFF REQ, RBC 4.34, MCV 84.5, MCH 28.5, MCHC 33.7, RDW 16.3 H, MPV 6.7 L, Gran % 52.9, Lymphocytes % 44.5, Monocytes % 2.2, Eosinophils % 0, Basophils % 0.4, Absolute Granulocytes 3.0, Absolute Lymphocytes 2.5, Absolute Monocytes 0.1, Absolute Eosinophils 0, Absolute Basophils 0, Serum Alcohol 377.0 05/02/18 163: Urine Test NEGATIVE 05/02/18 1633: Urine Opiates Screen < 100, Methadone Screen < 40, Barbiturate Screen < 60, Ur Phencyclidine Scrn < 6.00, Amphetamines Screen < 100, U Benzodiazepines Scrn < 85, Urine Cocaine Screen < 50, Urine Cannabis Screen < 5.00, Urine Color YEL, Urine Clarity CLEAR, Urine pH 6.0, Ur Specific [place] 1.020, Urine Protein NEG, Urine Ketones 15 H, Urine Nitrite NEG, Urine Bilirubin NEG, Urine Urobilinogen 0.2, Ur Leukocyte Esterase TRACE H, Ur Microscopic SEDIMENT EXAMINED, Urine WBC RARE, Ur Epithelial Cells MOD H, Urine Hemoglobin TRACE-INTACT, Urine Glucose NEG Patient does appear intoxicated on exam, her labs are pending. Patient is requesting to see crisis although denies suicidal ideation. The patient was signed out to [facility] Gill pending labs, [facility], crisis evaluation. (Janet NASSAR,rBitt Ramos) Patient is requesting discharge. She initially presented for evaluation of depression and alcohol detox. Patient has been seen here multiple times for similar symptoms. She denies suicidal or homicidal ideation. No hallucinations. She denies drug use. Her labs overall are unremarkable other than a very high alcohol level. Discussed with patient about the potential dangers of premature discharge that include alcohol withdrawal seizures and DTs. Patient understands these risks. She is able to repeat them back to me. She does not want to stay for further evaluation. Patient has a sober ride that is here. She has a steady gait. Discussed return precautions in detail advised her to return anytime with any concerns. (Bert Saucedo) Hand-Off Endorsed To: Bert Saucedo Endorsed Time: 1758 Pending: consult, labs, other (ciwa) (Britt Correa) Departure Departure Condition: Stable Referrals: Joel Maldonado MD (PCP/Family) Departure Forms: Customer Survey General Discharge Information (Britt Correa) Departure Disposition: HOME OR SELF CARE Clinical Impression Primary Impression: Alcohol abuse Additional Instructions: Make a follow-up appointment with 1 of the provided outpatient detox centers as soon as possible. Return at anytime with any concerns. (Bert Saucedo)
[2018-05-02 18:00] LABS: ABSOLUTE BASOPHIL COUNT 0 /CUMM (0.0-0.2); ABSOLUTE EOSINOPHIL COUNT 0 /CUMM (0.0-0.7); ABSOLUTE LYMPH COUNT 2.5 /CUMM (1.2-3.4); ABSOLUTE MONOCYTE COUNT 0.1 /CUMM (0.10-0.60); BASOPHIL % 0.4 % (0.0-2.0); EOSINOPHIL % 0 % (0-5); GRANULOCYTE % 52.9 % (42.2-75.2); HEMATOCRIT 36.7 % (37-47); MEAN CORPUSCULAR HGB 28.5 PG (27.0-31.0); MEAN CORPUSCULAR HGB CONC 33.7 G/DL (33.0-37.0); MEAN CORPUSCULAR VOLUME 84.5 FL (81.0-99.0); MEAN PLATELET VOLUME 6.7 FL (7.4-10.4); PLATELET COUNT 330 /CUMM (130-400); RBC DISTRIBUTION WIDTH 16.3 % (11.5-14.5); RED BLOOD CELL CT 4.34 /CUMM (4.20-5.40); WHITE BLOOD CELL COUNT 5.7 /CUMM (4.8-10.8)
[2018-05-02 20:00] VITALS: BP 109/67
== END 2018-05-02 20:49 ==
LOC: ERH 16:18
PROVIDERS: Physician Assistant
DX: F10.10 Alcohol abuse, uncomplicated (principal); F32.9 Major depressive disorder, single episode, unspecified; R41.9 Unspecified symptoms and signs involving cognitive functions and awareness; R56.9 Unspecified convulsions; K74.60 Unspecified cirrhosis of liver
CPT/HCPCS: 80307; 81001; 81025; G0480; J3101